=== PATIENT | female | born 1935 | race Caucasian/White ===

== ENCOUNTER 2017-08-08 11:06 | Emergency (ER) | payer MEDICARE, BC ==
[2017-08-08] MEDS ORDERED: Ketorolac 30 MG/ML SDV IM ONE (12:25)
--- NOTE | 2017-08-08 12:26 | EDM.PDOC ---
ED HPI GENERAL MEDICAL PROBLEM - General Chief Complaint: Upper Extremity Injury/Pain Stated Complaint: LEFT SHOULDER PAIN Time Seen by Provider: 08/08/17 12:26 Source of Information: Reports: Patient History Limitations: Reports: No Limitations - History of Present Illness INITIAL COMMENTS - FREE TEXT/NARRATIVE: Pt fell 2 weeks ago and she used her left arm to push her up. She started about 1 week ago with pain in the left shoulder and it is now extending over the ches.t She is having alot of discomfort when she moves the arm. She seemes to be the most tender in tharea in the front of the shoulder. Onset: Gradual, Other ( This has been going on in the pst week. Today she began to notice pain going over the chest. ) Duration: Day(s): Location: Reports: Chest, Upper Extremity, Left Associated Symptoms: Reports: Chest Pain, Other (Pt had pain extending from the shoulder over the left chest and this was tender to palpate. ) Left Upper Shoulder Pain Score (Numeric/FACES): 4 - Related Data Allergies Allergy/AdvReac Type Severity Reaction Status Date / Time azithromycin Allergy Vomiting Verified 08/08/17 11:41 codeine Allergy Nausea and Verified 08/08/17 11:41 Vomiting diazepam [From Valium] Allergy Disorientat Verified 08/08/17 11:41 ion Penicillins Allergy Respiratory Verified 08/08/17 11:41 Distress Sulfa (Sulfonamide Allergy Rash Verified 08/08/17 11:41 Antibiotics) Home Meds: Home Meds Atenolol [Tenormin] 25 mg PO DAILY 10/06/13 [History] Omeprazole 20 mg PO DAILY 10/06/13 [History] glyBURIDE [Micronase] 2.5 mg PO DAILY 10/06/13 [History] metFORMIN [Glucophage] 1,000 mg PO BIDM 10/06/13 [History] Allopurinol [Zyloprim] 100 mg PO DAILY 10/15/15 [History] Gabapentin [Neurontin] 300 mg PO DAILY 10/15/15 [History] amLODIPine [Norvasc] 10 mg PO DAILY 10/15/15 [History] Cholecalciferol (Vitamin D3) [Vitamin D] 1 tab PO DAILY 08/08/17 [History] Lisinopril 1 tab PO DAILY 08/08/17 [History] Multivitamin [Daily Multiple Vitamin] 1 tab PO DAILY 08/08/17 [History] atorvaSTATin [Lipitor] 1 tab PO DAILY 08/08/17 [History] glipiZIDE [Glipizide ER] 2 tab PO DAILY 08/08/17 [History] Past Medical History HEENT History: Reports: Cataract, Glaucoma, Impaired Vision Cardiovascular History: Reports: High Cholesterol, Hypertension Respiratory History: Reports: Asthma, COPD Gastrointestinal History: Reports: GERD Musculoskeletal History: Reports: Osteoarthritis, Other (See Below) Other Musculoskeletal History: right hip pain Neurological History: Reports: CVA, Migraines Endocrine/Metabolic History: Reports: Diabetes, Type II - Past Surgical History HEENT Surgical History: Reports: Cataract Surgery Respiratory Surgical History: Reports: None GI Surgical History: Reports: Appendectomy Female Surgical History: Reports: Endometrial Ablation, Hysterectomy Social & Family History - Tobacco Use Smoking Status *Q: Never Smoker - Caffeine Use Caffeine Use: Reports: Coffee, Soda, Tea - Recreational Drug Use Recreational Drug Use: No Review of Systems - Review of Systems Review Of Systems: See Below Eyes: Reports: No Symptoms Ears: Reports: No Symptoms Nose: Reports: No Symptoms Mouth/Throat: Reports: No Symptoms Respiratory: Reports: No Symptoms Cardiovascular: Reports: Chest Pain, Other ( muscle type pain extending from the left shoulder. ) Genitourinary: Reports: No Symptoms Musculoskeletal: Reports: Other (Pain in the left shoulder. ) ED EXAM, GENERAL - Physical Exam Exam: See Below Free Text/Narrative:: Pt has pain in the left shoulder and this seemes to be extending over the left chest. Exam Limited By: No Limitations General Appearance: Alert, Anxious, Moderate Distress Ears: Normal TMs Nose: Normal Inspection Throat/Mouth: Normal Inspection Head: Atraumatic Neck: Normal Inspection Respiratory/Chest: No Respiratory Distress, Other (pt is tender to papate the muscle extending from the shoulder to the chest. ) Cardiovascular: Regular Rate, Rhythm GI/Abdominal: Soft, Non-Tender (Female) Exam: Deferred Rectal (Female) Exam: Deferred Back Exam: Normal Inspection Extremities: Other (pt is tender over the left ant shoulder and the left chest. Her Mri that was done in May of the cervical spine shows sig disc disease. ) Psychiatric: Normal Affect Course - Vital Signs Last Recorded V/S: Last Vital Signs Temp 36.9 C 08/08/17 11:26 Pulse 76 08/08/17 13:11 Resp 16 08/08/17 13:11 BP 160/76 H 08/08/17 13:11 Pulse Ox 93 L 08/08/17 13:11 - Orders/Labs/Meds Orders: Active Orders 24 hr Category Date Time Status EKG Documentation Completion [RC] ASDIRECTED Care 08/08/17 12:39 Active EKG 12 Lead [EK] Routine Ther 08/08/17 12:39 Ordered Labs: Laboratory Tests 08/08/17 08/08/17 08/08/17 Range/Units 12:30 12:30 12:40 WBC 9.3 (4.5-11.0) K/uL RBC 4.26 (3.30-5.50) M/uL Hgb 12.9 (12.0-15.0) g/dL Hct 39.8 (36.0-48.0) % MCV 93 (80-98) fL MCH 30 (27-31) pg MCHC 32 (32-36) % Plt Count 205 (150-400) K/uL Neut % (Auto) 71 H (36-66) % Lymph % (Auto) 19 L (24-44) % [place] % (Auto) 9 H (2-6) % Eos % (Auto) 1 L (2-4) % Baso % (Auto) 0 (0-1) % Sodium 143 (140-148) mmol/L Potassium 4.4 (3.6-5.2) mmol/L Chloride 105 (100-108) mmol/L Carbon Dioxide 28 (21-32) mmol/L Anion Gap 10.2 (5.0-14.0) mmol/L BUN 16 (7-18) mg/dL Creatinine 0.9 (0.6-1.0) mg/dL Est Cr Clr Drug Dosing 35.21 mL/min Estimated GFR (MDRD) > 60 (>60) Glucose 139 H (74-106) mg/dL Calcium 8.5 (8.5-10.1) mg/dL Troponin I < 0.017 (0.000-0.056) ng/mL Meds: Medications Discontinued Medications Generic Name Dose Route Start Last Admin Trade Name Freq PRN Reason Stop Dose Admin Ketorolac Tromethamine 30 mg 08/08/17 12:25 08/08/17 13:05 Toradol IM 08/08/17 12:26 30 mg ONETIME ONE Administration - Re-Assessments/Exams Free Text/Narrative Re-Assessment/Exam: 08/08/17 13:27 pt did have normal lab work. She had a normal trop and her ekg did not show acute findings. She was not given asa because it was felt this was definitely muscle type pain. xrays of the shoulder revealed no acute findings. Departure - Departure Time of Disposition: 13:30 Disposition: Home, Self-Care 01 Condition: Fair Clinical Impression: Sprain of shoulder and upper arm - Discharge Information Referrals: María Fried PA [Primary Care Provider] - Forms: ED Department Discharge Care Plan Goals: moist warm packs to the left shoulder, try to move the arm as much as possible, tylenol 650 q6h as needed for pain, norco 5/325 q6h prn for pain # 6. Physical therapy at [facility] - My Orders Last 24 Hours: My Active Orders 08/08/17 12:39 EKG Documentation Completion [RC] ASDIRECTED EKG 12 Lead [EK] Routine - Assessment/Plan Last 24 Hours: My Active Orders 08/08/17 12:39 EKG Documentation Completion [RC] ASDIRECTED EKG 12 Lead [EK] Routine
[2017-08-08 13:12] VITALS: BP 160/76
--- NOTE | 2017-08-08 13:15 | CR ---
Humerus Lt INDICATION: Pain in the left arm. COMPARISON: None FINDINGS: 2 views. No fracture, dislocation, or other acute bony abnormality.
--- NOTE | 2017-08-08 13:21 | CR ---
Shoulder Comp Lt INDICATION: pain n left shoulder. COMPARISON: None FINDINGS: 3 views. No fracture, dislocation, or other acute bony abnormality. Mild AC joint space narrowing.
== END 2017-08-08 14:03 | disposition home or self-care (01) ==
LOC: JP.ED 11:06
DX: S43.402A Unspecified sprain of left shoulder joint, initial encounter (principal); E78.00 Pure hypercholesterolemia, unspecified; I10 Essential (primary) hypertension; E11.9 Type 2 diabetes mellitus without complications; Z88.1 Allergy status to other antibiotic agents; Z88.5 Allergy status to narcotic agent; Z88.0 Allergy status to penicillin; Z88.2 Allergy status to sulfonamides; Z79.899 Other long term (current) drug therapy; Z79.84 Long term (current) use of oral hypoglycemic drugs; W19.XXXA Unspecified fall, initial encounter
CPT/HCPCS: 36415; 73030; 73060; 80048; 84484; 85025; 93005; 96372; 99284; J1885

== ENCOUNTER 2017-12-19 12:11 | Emergency (ER) | payer MEDICARE, BC ==
[2017-12-19] MEDS ORDERED: Diltiazem 25 MG/5 ML SDV IVPUSH ONE (12:42)
[2017-12-19] MEDS ORDERED: Diltiazem 100 MG in Sodium Chloride 0.9% 100 ML IV SCH ×2 (12:45→13:00)
--- NOTE | 2017-12-19 12:47 | EDM.PDOC ---
ED HPI GENERAL MEDICAL PROBLEM - General Chief Complaint: Cardiovascular Problem Stated Complaint: A-FIB FROM THE CLINIC Time Seen by Provider: 12/19/17 12:44 Source of Information: Reports: Patient History Limitations: Reports: No Limitations - History of Present Illness INITIAL COMMENTS - FREE TEXT/NARRATIVE: pt arrived with a history of being at the clinic and was having a nephrology visit. Her heart rate was found to be in the 140 range. Onset: Other ( The onset of this is unknown. 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 ) Duration: Hour(s): Location: Reports: Chest Associated Symptoms: Reports: Other ( chest pain and weakness, and vomiting saturday. ) - Related Data Allergies Allergy/AdvReac Type Severity Reaction Status Date / Time Penicillins Allergy Intermediate Respiratory Verified 12/19/17 12:50 Distress diazepam [From Valium] Allergy Disorientat Verified 08/08/17 11:41 ion Sulfa (Sulfonamide Allergy Rash Verified 08/08/17 11:41 Antibiotics) azithromycin AdvReac Vomiting Verified 12/19/17 12:50 codeine AdvReac Nausea and Verified 12/19/17 12:50 Vomiting Home Meds: Home Meds Atenolol [Tenormin] 25 mg PO DAILY 10/06/13 [History] Omeprazole 20 mg PO DAILY 10/06/13 [History] glyBURIDE [Micronase] 2.5 mg PO DAILY 10/06/13 [History] metFORMIN [Glucophage] 1,000 mg PO BIDM 10/06/13 [History] Allopurinol [Zyloprim] 100 mg PO DAILY 10/15/15 [History] Gabapentin [Neurontin] 300 mg PO DAILY 10/15/15 [History] amLODIPine [Norvasc] 10 mg PO DAILY 10/15/15 [History] Cholecalciferol (Vitamin D3) [Vitamin D] 1 tab PO DAILY 08/08/17 [History] Lisinopril 1 tab PO DAILY 08/08/17 [History] Multivitamin [Daily Multiple Vitamin] 1 tab PO DAILY 08/08/17 [History] atorvaSTATin [Lipitor] 1 tab PO DAILY 08/08/17 [History] glipiZIDE [Glipizide ER] 2 tab PO DAILY 08/08/17 [History] Past Medical History HEENT History: Reports: Cataract, Glaucoma, Impaired Vision Cardiovascular History: Reports: High Cholesterol, Hypertension Respiratory History: Reports: Asthma, COPD Gastrointestinal History: Reports: GERD [employer] History: Reports: Musculoskeletal History: Reports: Osteoarthritis, Other (See Below) Other Musculoskeletal History: right hip pain Neurological History: Reports: CVA, Migraines Endocrine/Metabolic History: Reports: Diabetes, Type II - Infectious Disease History Infectious Disease History: Reports: Chicken Pox, Measles, Mumps - Past Surgical History HEENT Surgical History: Reports: Cataract Surgery Respiratory Surgical History: Reports: None GI Surgical History: Reports: Appendectomy Female Surgical History: Reports: Endometrial Ablation, Hysterectomy Social & Family History - Tobacco Use Smoking Status *Q: Never Smoker - Caffeine Use Caffeine Use: Reports: Coffee - Recreational Drug Use Recreational Drug Use: No ED ROS GENERAL - Review of Systems Review Of Systems: See Below Constitutional: Reports: Weakness, Fatigue HEENT: Reports: No Symptoms Respiratory: Reports: No Symptoms Cardiovascular: Reports: Palpitations Endocrine: Reports: No Symptoms GI/Abdominal: Reports: No Symptoms : Reports: No Symptoms Musculoskeletal: Reports: No Symptoms Skin: Reports: No Symptoms Neurological: Reports: No Symptoms ED EXAM, GENERAL - Physical Exam Exam: See Below Free Text/Narrative:: pt arrived with a heart rate in the 140 range. She had a history of sustained chest pain on Saturday. She has not had chest since that time. She has a elevated tropon. Exam Limited By: No Limitations General Appearance: Alert, No Apparent Distress, Anxious, Other (pupils equal and reactive. ) Ears: Normal TMs Nose: Normal Inspection Throat/Mouth: Normal Inspection Head: Atraumatic Neck: Normal Inspection Respiratory/Chest: No Respiratory Distress Cardiovascular: Irregularly Irregular, Other ( rate is 140. ) GI/Abdominal: Soft, Non-Tender (Female) Exam: Deferred Rectal (Female) Exam: Deferred Back Exam: Normal Inspection Extremities: Normal Inspection Neurological: Alert, Oriented, Normal Cognition Psychiatric: Normal Affect Course - Vital Signs Last Recorded V/S: Last Vital Signs Temp 35.9 C 12/19/17 12:36 Pulse 98 12/19/17 14:56 Resp 19 12/19/17 14:27 BP 175/110 H 12/19/17 15:00 Pulse Ox 93 L 12/19/17 14:27 - Orders/Labs/Meds Labs: Laboratory Tests 1012/19/17 12/19/17 Range/Units 12:41 12:47 14:04 WBC 8.6 (4.5-11.0) K/uL RBC 4.78 (3.30-5.50) M/uL Hgb 14.7 (12.0-15.0) g/dL Hct 43.7 (36.0-48.0) % MCV 91 (80-98) fL MCH 31 (27-31) pg MCHC 34 (32-36) % Plt Count 180 (150-400) K/uL Neut % (Auto) 71 H (36-66) % Lymph % (Auto) 17 L (24-44) % [place] % (Auto) 10 H (2-6) % Eos % (Auto) 1 L (2-4) % Baso % (Auto) 0 (0-1) % APTT 27.1 (27.0-36.0) sec Sodium 141 (140-148) mmol/L Potassium 3.4 L (3.6-5.2) mmol/L Chloride 100 (100-108) mmol/L Carbon Dioxide 30 (21-32) mmol/L Anion Gap 14.4 H (5.0-14.0) mmol/L BUN 22 H (7-18) mg/dL Creatinine 1.3 H (0.6-1.0) mg/dL Est Cr Clr Drug Dosing 23.96 mL/min Estimated GFR (MDRD) 39 L (>60) Glucose 188 H (74-106) mg/dL Calcium 8.6 (8.5-10.1) mg/dL Total Bilirubin 0.6 (0.2-1.0) mg/dL AST 29 (15-37) U/L ALT 23 (12-78) U/L Alkaline Phosphatase 93 (46-116) U/L Troponin I 2.483 H* (0.000-0.056) ng/mL Total Protein 7.2 (6.4-8.2) g/dL Albumin 3.6 (3.4-5.0) g/dL Globulin 3.6 H (2.3-3.5) g/dL Albumin/Globulin Ratio 1.0 L (1.2-2.2) Urine Color Urine Appearance Urine pH (4.5-8.0) Ur Specific Grass Range (1.008-1.030) Urine Protein (NEGATIVE) mg/dL Urine Glucose (UA) (NEGATIVE) mg/dL Urine Ketones (NEGATIVE) mg/dL Urine Occult Blood (NEGATIVE) Urine Nitrite (NEGATIVE) Urine Bilirubin (NEGATIVE) Urine Urobilinogen (NORMAL) mg/dL Ur Leukocyte Esterase (NEGATIVE) Urine RBC (0-5) Urine WBC (0-5) Ur Epithelial Cells Amorphous Sediment Urine Bacteria Urine Mucus 12/19/17 Range/Units 14:40 WBC (4.5-11.0) K/uL RBC (3.30-5.50) M/uL Hgb (12.0-15.0) g/dL Hct (36.0-48.0) % MCV (80-98) fL MCH (27-31) pg MCHC (32-36) % Plt Count (150-400) K/uL Neut % (Auto) (36-66) % Lymph % (Auto) (24-44) % [place] % (Auto) (2-6) % Eos % (Auto) (2-4) % Baso % (Auto) (0-1) % APTT (27.0-36.0) sec Sodium (140-148) mmol/L Potassium (3.6-5.2) mmol/L Chloride (100-108) mmol/L Carbon Dioxide (21-32) mmol/L Anion Gap (5.0-14.0) mmol/L BUN (7-18) mg/dL Creatinine (0.6-1.0) mg/dL Est Cr Clr Drug Dosing mL/min Estimated GFR (MDRD) (>60) Glucose (74-106) mg/dL Calcium (8.5-10.1) mg/dL Total Bilirubin (0.2-1.0) mg/dL AST (15-37) U/L ALT (12-78) U/L Alkaline Phosphatase (46-116) U/L Troponin I (0.000-0.056) ng/mL Total Protein (6.4-8.2) g/dL Albumin (3.4-5.0) g/dL Globulin (2.3-3.5) g/dL Albumin/Globulin Ratio (1.2-2.2) Urine Color Yellow Urine Appearance Slightly cloudy Urine pH 6.0 (4.5-8.0) Ur Specific Grass Range 1.010 (1.008-1.030) Urine Protein 100 H (NEGATIVE) mg/dL Urine Glucose (UA) Normal (NEGATIVE) mg/dL Urine Ketones Negative (NEGATIVE) mg/dL Urine Occult Blood Negative (NEGATIVE) Urine Nitrite Negative (NEGATIVE) Urine Bilirubin Negative (NEGATIVE) Urine Urobilinogen Normal (NORMAL) mg/dL Ur Leukocyte Esterase Negative (NEGATIVE) Urine RBC Not seen (0-5) Urine WBC 0-5 (0-5) Ur Epithelial Cells Moderate Amorphous Sediment Not seen Urine Bacteria Moderate Urine Mucus Rare Meds: Medications Discontinued Medications Generic Name Dose Route Start Last Admin Trade Name Freq PRN Reason Stop Dose Admin Diltiazem HCl 10 mg 12/19/17 12:42 12/19/17 12:45 Diltiazem IVPUSH 12/19/17 12:43 10 mg ONETIME ONE Administration Heparin Sodium (Porcine) 4,000 units 12/19/17 14:04 12/19/17 14:17 Heparin Sodium IVPUSH 12/19/17 14:05 4,000 units ONETIME ONE Administration Diltiazem HCl 100 mg/ Sodium 100 mls @ 5 mls/hr 12/19/17 13:00 12/19/17 13:48 Chloride IV 5 mg/hr TITRATE ARJUN 5 mls/hr Administration Protocol 5 MG/HR Sodium Chloride 1,000 mls @ 100 mls/hr 12/19/17 14:15 12/19/17 14:26 Normal Saline IV 100 mls/hr ASDIRECTED ARJUN Administration Metoprolol Tartrate 2.5 mg 12/19/17 14:05 12/19/17 14:17 Lopressor IVPUSH 12/19/17 14:06 2.5 mg ONETIME ONE Administration Metoprolol Tartrate 2.5 mg 12/19/17 14:48 12/19/17 14:56 Lopressor IVPUSH 12/19/17 14:49 2.5 mg ONETIME ONE Administration - Re-Assessments/Exams Free Text/Narrative Re-Assessment/Exam: 12/19/17 14:11 pt was given cardiazem 10mg iv bolus and her rate went down to 80. It then went back up and a drip was started. A heparin bolus was given. Lopressor 2.5 mg was given iv push x2. 12/20/17 18:39 Departure - Departure Time of Disposition: 14:14 Disposition: DC/Tfer to Acute Hospital 02 Reason for Transfer *Q: Primary PCI Indicated Condition: Fair Clinical Impression: Acute [place], Atrial fibrillation Referrals: María Fried PA [Primary Care Provider] - Forms: ED Department Discharge Care Plan Goals: transfer to [facility].
[2017-12-19] MEDS ORDERED: Heparin Sodium 5,000 Units/ML Vial IVPUSH ONE (14:04)
[2017-12-19] MEDS ORDERED: Metoprolol Tartrate 5 MG/5 ML SDV IVPUSH ONE ×2 (14:05→14:48)
[2017-12-19] MEDS ORDERED: Sodium Chloride 0.9% 1,000 ML IV SCH (14:15)
--- NOTE | 2017-12-19 14:46 | CR ---
CHEST: Portable CLINICAL HISTORY:Atrial fib COMPARISON:None available FINDINGS: The heart is enlarged pulmonary vascular is normal. Lungs are mildly hyperaerated. No infi ltrate effusion or pneumothorax is seen. Impression: Mild cardiomegaly No acute cardiopulmonary process
[2017-12-19 15:20] VITALS: BP 175/110
== END 2017-12-19 15:05 ==
LOC: JP.ED 12:11
DX: I21.9 Acute myocardial infarction, unspecified (principal); I48.91 Unspecified atrial fibrillation; E78.00 Pure hypercholesterolemia, unspecified; I10 Essential (primary) hypertension; J44.9 Chronic obstructive pulmonary disease, unspecified; E11.9 Type 2 diabetes mellitus without complications; Z79.899 Other long term (current) drug therapy; Z79.84 Long term (current) use of oral hypoglycemic drugs
CPT/HCPCS: 36415; 71045; 80053; 81001; 84484; 85025; 85730; 93005; 96365; 96375; 99285; J1644; J3490; J7030

== ENCOUNTER 2018-09-04 20:41 | Emergency (ER) | payer BC, MEDICARE ==
--- NOTE | 2018-09-04 21:19 | EDM.PDOC ---
ED HPI GENERAL MEDICAL PROBLEM - General Chief Complaint: Gastrointestinal Problem Stated Complaint: MEDICAL VIA AMBULANCE Time Seen by Provider: 09/04/18 20:59 Source of Information: Reports: Patient, RN Notes Reviewed History Limitations: Reports: No Limitations - History of Present Illness INITIAL COMMENTS - FREE TEXT/NARRATIVE: 82-year-old female presents emergency department today with flank nausea and vomiting 1 she states this episode happened after she eaten at the restaurant approximately 20 minutes after ingestion of the same which a lot patient had a violent episode of nausea and vomiting, called EMS services who arrived found her to be clammy IV was placed 4 mg Zofran given EKG demonstrates atrial fibrillation otherwise no signs of ischemia she does have a known history of atrial fibrillation on anticoagulation therapy - Related Data Allergies Allergy/AdvReac Type Severity Reaction Status Date / Time Penicillins Allergy Intermediate Respiratory Verified 09/04/18 20:43 Distress diazepam [From Valium] Allergy Disorientat Verified 09/04/18 20:43 ion Sulfa (Sulfonamide Allergy Rash Verified 09/04/18 20:43 Antibiotics) azithromycin AdvReac Vomiting Verified 09/04/18 20:43 codeine AdvReac Nausea and Verified 09/04/18 20:43 Vomiting Home Meds: Home Meds Atenolol [Tenormin] 25 mg PO DAILY 10/06/13 [History] Omeprazole 20 mg PO DAILY 10/06/13 [History] glyBURIDE [Micronase] 2.5 mg PO DAILY 10/06/13 [History] metFORMIN [Glucophage] 1,000 mg PO BIDM 10/06/13 [History] Allopurinol [Zyloprim] 100 mg PO DAILY 10/15/15 [History] Gabapentin [Neurontin] 300 mg PO BID 10/15/15 [History] amLODIPine [Norvasc] 10 mg PO DAILY 10/15/15 [History] Lisinopril 1 tab PO DAILY 08/08/17 [History] atorvaSTATin [Lipitor] 1 tab PO DAILY 08/08/17 [History] glipiZIDE [Glipizide ER] 2 tab PO DAILY 08/08/17 [History] Apixaban [Eliquis] 5 mg PO BID 09/04/18 [History] Past Medical History HEENT History: Reports: Cataract, Glaucoma, Impaired Vision Cardiovascular History: Reports: Afib, High Cholesterol, Hypertension Respiratory History: Reports: Asthma, COPD Gastrointestinal History: Reports: GERD [employer] History: Reports: Musculoskeletal History: Reports: Osteoarthritis, Other (See Below) Other Musculoskeletal History: right hip pain Neurological History: Reports: CVA, Migraines Endocrine/Metabolic History: Reports: Diabetes, Type II - Infectious Disease History Infectious Disease History: Reports: Chicken Pox, Measles, Mumps - Past Surgical History Head Surgeries/Procedures: Reports: None HEENT Surgical History: Reports: Cataract Surgery Cardiovascular Surgical History: Reports: None Respiratory Surgical History: Reports: None GI Surgical History: Reports: Appendectomy Female Surgical History: Reports: Endometrial Ablation, Hysterectomy Endocrine Surgical History: Reports: None Neurological Surgical History: Reports: None Musculoskeletal Surgical History: Reports: None Dermatological Surgical History: Reports: None Social & Family History - Tobacco Use Smoking Status *Q: Never Smoker Second Hand Smoke Exposure: No - Caffeine Use Caffeine Use: Reports: None - Recreational Drug Use Recreational Drug Use: No ED ROS GENERAL - Review of Systems Review Of Systems: See Below Constitutional: Reports: No Symptoms HEENT: Reports: No Symptoms Respiratory: Reports: No Symptoms Cardiovascular: Reports: No Symptoms GI/Abdominal: Reports: Nausea, Vomiting : Reports: No Symptoms Musculoskeletal: Reports: No Symptoms ED EXAM, GI/ABD - Physical Exam Exam: See Below Exam Limited By: No Limitations General Appearance: Alert, WD/WN, No Apparent Distress Ears: Normal External Exam, Normal Canal, Hearing Grossly Normal, Normal TMs Nose: Normal Inspection, Normal Mucosa, No Blood Throat/Mouth: Normal Inspection, Normal Lips, Normal Teeth, Normal Gums, Normal Oropharynx, Normal Voice, No Airway Compromise Head: Atraumatic, Normocephalic Neck: Normal Inspection, Supple, Non-Tender, Full Range of Motion Respiratory/Chest: No Respiratory Distress, Lungs Clear, Normal Breath Sounds, No Accessory Muscle Use, Chest Non-Tender Cardiovascular: Regular Rate, Rhythm, No Murmur, Irregularly Irregular GI/Abdominal Exam: Soft, Non-Tender Course - Vital Signs Last Recorded V/S: Last Vital Signs Temp 96.1 F 09/04/18 20:52 Pulse 89 09/04/18 21:37 Resp 29 H 09/04/18 21:37 BP 144/90 H 09/04/18 21:37 Pulse Ox 96 09/04/18 21:37 - Orders/Labs/Meds Labs: Laboratory Tests 06/09/04/18 09/04/18 Range/Units 21:21 21:21 21:21 WBC 12.5 H (4.5-11.0) K/uL RBC 4.74 (3.30-5.50) M/uL Hgb 14.0 (12.0-15.0) g/dL Hct 43.9 (36.0-48.0) % MCV 93 (80-98) fL MCH 30 (27-31) pg MCHC 32 (32-36) % Plt Count 223 (150-400) K/uL Neut % (Auto) 86 H (36-66) % Lymph % (Auto) 8 L (24-44) % [place] % (Auto) 5 (2-6) % Eos % (Auto) 0 L (2-4) % Baso % (Auto) 0 (0-1) % Sodium 142 (140-148) mmol/L Potassium 4.8 (3.6-5.2) mmol/L Chloride 103 (100-108) mmol/L Carbon Dioxide 28 (21-32) mmol/L Anion Gap 10.8 (5.0-14.0) mmol/L BUN 23 H (7-18) mg/dL Creatinine 1.8 H (0.6-1.0) mg/dL Est Cr Clr Drug Dosing 17.31 mL/min Estimated GFR (MDRD) 27 L (>60) Glucose 144 H (74-106) mg/dL Calcium 9.8 (8.5-10.1) mg/dL Total Bilirubin 0.3 (0.2-1.0) mg/dL AST 15 (15-37) U/L ALT 28 (12-78) U/L Alkaline Phosphatase 107 (46-116) U/L CK-MB (CK-2) 2.1 (0-3.6) mg/mL Troponin I < 0.017 (0.000-0.056) ng/mL Total Protein 7.6 (6.4-8.2) g/dL Albumin 3.9 (3.4-5.0) g/dL Globulin 3.7 H (2.3-3.5) g/dL Albumin/Globulin Ratio 1.1 L (1.2-2.2) Departure - Departure Time of Disposition: 22:25 Disposition: Home, Self-Care 01 Condition: Fair Clinical Impression: Foodborne gastroenteritis - Discharge Information Instructions: Food Poisoning Referrals: PCP,None [Primary Care Provider] - Forms: ED Department Discharge Additional Instructions: Please followup with your primary care provider in 3-5 days if not better, please call return to the emergency department with worsening of symptoms. - Assessment/Plan Plan: Assessment Acuity = acute Site and laterality = nausea and vomiting Etiology = suspicious for food borne illness Manifestations = symptoms now resolved Location of injury = Home Lab values = WBC elevated 12.5 consistent leukocytosis probably acute phase reaction, creatinine elevated 1.8 consistent chronic renal failure stage GIII A , troponin was negative CK-MB both negative Plan Her nausea and vomiting have resolved after 1 dose of Zofran plan discharge home follow-up primary care 3 days if no improvement This note was dictated using [employer] voice recognition software please call with any questions on syntax or grammar.
[2018-09-04 21:51] VITALS: BP 144/90
== END 2018-09-04 23:58 | disposition home or self-care (01) ==
LOC: JP.ED 20:41
DX: A05.9 Bacterial foodborne intoxication, unspecified (principal); E11.9 Type 2 diabetes mellitus without complications; I10 Essential (primary) hypertension; E78.00 Pure hypercholesterolemia, unspecified; I48.91 Unspecified atrial fibrillation; K21.9 Gastro-esophageal reflux disease without esophagitis; Z79.899 Other long term (current) drug therapy; Z88.0 Allergy status to penicillin; Z88.2 Allergy status to sulfonamides; Z88.1 Allergy status to other antibiotic agents; Z88.8 Allergy status to other drugs, medicaments and biological substances
CPT/HCPCS: 36415; 80053; 82553; 84484; 85025; 99284

== ENCOUNTER 2019-10-09 12:11 | Inpatient (IN) | payer MEDICARE ==
[2019-10-09] MEDS ORDERED: Furosemide 40 MG/4 ML VIAL IVPUSH ONE (12:19)
[2019-10-09] MEDS ORDERED: Sodium Chloride 0.9% 10 ML Syringe FLUSH PRN ×2 (12:19→16:12)
--- NOTE | 2019-10-09 12:44 | EDM.PDOC ---
ED HPI GENERAL MEDICAL PROBLEM - General Chief Complaint: General Stated Complaint: MEDICAL [facility] Time Seen by Provider: 10/09/19 12:41 Source of Information: Reports: Patient History Limitations: Reports: No Limitations - History of Present Illness INITIAL COMMENTS - FREE TEXT/NARRATIVE: pt arrived with sob and chest pressure. She has noted increased ankle swelling and increased sob for the past 2 days. Onset: Gradual Duration: Day(s):, Other (pt was much more sob this am. ) Location: Reports: Chest, Lower Extremity, Left, Lower Extremity, Right Associated Symptoms: Reports: Shortness of Breath, Other (pt did have chest pressure) - Related Data Allergies Allergy/AdvReac Type Severity Reaction Status Date / Time Penicillins Allergy Intermediate Respiratory Verified 10/09/19 12:19 Distress Sulfa (Sulfonamide Allergy Rash Verified 10/09/19 12:19 Antibiotics) azithromycin AdvReac Vomiting Verified 10/09/19 12:19 codeine AdvReac Nausea and Verified 10/09/19 12:19 Vomiting diazepam [From Valium] AdvReac Disorientat Verified 10/09/19 15:42 ion Home Meds: Home Meds Omeprazole 20 mg PO DAILY 10/06/13 [History] glyBURIDE [Micronase] 2.5 mg PO DAILY 10/06/13 [History] metFORMIN [Glucophage] 1,000 mg PO BIDM 10/06/13 [History] Allopurinol [Zyloprim] 100 mg PO DAILY 10/15/15 [History] Gabapentin [Neurontin] 300 mg PO TID 10/15/15 [History] amLODIPine [Norvasc] 10 mg PO DAILY 10/15/15 [History] Lisinopril 40 mg PO DAILY 08/08/17 [History] atorvaSTATin [Lipitor] 40 mg PO DAILY 08/08/17 [History] Apixaban [Eliquis] 5 mg PO BID 09/04/18 [History] Aspirin [[place] Aspirin EC] 81 mg PO DAILY 10/09/19 [History] Gabapentin [Neurontin] 300 mg PO TID 10/09/19 [History] Isosorbide Mononitrate [Isosorbide Mononitrate ER] 30 mg PO DAILY 10/09/19 [History] Metoprolol Succinate 200 mg PO DAILY 10/09/19 [History] glipiZIDE [Glucotrol] 10 mg PO DAILY 10/09/19 [History] Past Medical History HEENT History: Reports: Cataract, Glaucoma, Impaired Vision Cardiovascular History: Reports: Afib, High Cholesterol, Hypertension Respiratory History: Reports: Asthma, COPD Gastrointestinal History: Reports: GERD [employer] History: Reports: Musculoskeletal History: Reports: Osteoarthritis, Other (See Below) Other Musculoskeletal History: right hip pain Neurological History: Reports: CVA, Migraines Endocrine/Metabolic History: Reports: Diabetes, Type II - Infectious Disease History Infectious Disease History: Reports: Chicken Pox, Measles, Mumps - Past Surgical History HEENT Surgical History: Reports: Cataract Surgery GI Surgical History: Reports: Appendectomy Female Surgical History: Reports: Endometrial Ablation, Hysterectomy Social & Family History - Tobacco Use Smoking Status *Q: Never Smoker - Caffeine Use Caffeine Use: Reports: Coffee, Tea - Alcohol Use Date of Last Drink: 10/02/19 Time of Last Drink: 18:00 - Recreational Drug Use Recreational Drug Use: No ED ROS GENERAL - Review of Systems Review Of Systems: See Below Constitutional: Reports: Weakness, Other (pt is much more sob. ) HEENT: Reports: No Symptoms Respiratory: Reports: Shortness of Breath, Cough Cardiovascular: Reports: Dyspnea on Exertion, Other (pt has noted increased ankle swelling. She was much more sob this am. ) : Reports: No Symptoms Musculoskeletal: Reports: No Symptoms Skin: Reports: No Symptoms Neurological: Reports: No Symptoms Psychiatric: Reports: Anxiety ED EXAM, GENERAL - Physical Exam Exam: See Below Free Text/Narrative:: pt arrived with increased sob, She has noted increased ankle swelling. She did develop some pressure in the chest. Exam Limited By: No Limitations General Appearance: Alert, Anxious, Moderate Distress Ears: Normal TMs Nose: Normal Inspection Throat/Mouth: Normal Inspection Head: Atraumatic Neck: Normal Inspection, Other (neck veins prominent) Respiratory/Chest: Decreased Breath Sounds, Crackles GI/Abdominal: Soft, Non-Tender (Female) Exam: Deferred Rectal (Female) Exam: Deferred Back Exam: Normal Inspection Extremities: Pedal Edema, Other ( pt has pluse 3 edema. ) Neurological: Alert, Oriented, Normal Cognition Psychiatric: Anxious Course - Vital Signs Last Recorded V/S: Last Vital Signs Temp 36.8 C 10/10/19 06:37 Pulse 91 10/10/19 06:37 Resp 16 10/10/19 06:37 BP 136/76 07/25/20 06:37 Pulse Ox 93 L 10/10/19 06:37 - Orders/Labs/Meds Orders: Active Orders 24 hr Category Date Time Status EKG 12 Lead [EK] Routine Ther 10/09/19 12:18 Stop Req Medication Orders Acetaminophen (Tylenol) 650 mg PO Q4H PRN PRN Reason: Pain (Mild 1-3)/fever Albuterol (Proventil Neb Soln) 2.5 mg NEB Q4H PRN PRN Reason: Shortness Of Breath/wheezing Albuterol/Ipratropium (Duoneb 3.0-0.5 Mg/3 Ml) 3 ml NEB QIDRT [facility] Last Admin: 10/10/19 06:43 Dose: 3 ml Documented by: Admin: 10/09/19 21:24 Dose: 3 ml Documented by: Admin: 10/09/19 18:46 Dose: 3 ml Documented by: NADYA Allopurinol (Zyloprim) 100 mg PO DAILY [facility] Last Admin: 10/09/19 18:40 Dose: 100 mg Documented by: NADYA Amlodipine Besylate (Norvasc) 10 mg PO DAILY [facility] Apixaban (Eliquis) 5 mg PO BID [facility] Last Admin: 10/09/19 21:24 Dose: 5 mg Documented by: MICHELLE Atorvastatin Calcium (Lipitor) 40 mg PO DAILY [facility] Last Admin: 10/09/19 18:40 Dose: 40 mg Documented by: NADYA Dextrose (Glutose 15) 15 gm PO ONETIME PRN PRN Reason: Hypoglycemia Dextrose/Water (Dextrose 50% In Water) 50 ml IV ONETIME PRN PRN Reason: Hypoglycemia Gabapentin (Neurontin) 300 mg PO TID [facility] Last Admin: 10/09/19 21:24 Dose: 300 mg Documented by: MICHELLE Glipizide (Glucotrol) 10 mg PO DAILY [facility] Insulin Human Lispro (Humalog) 0 unit SUBCUT QIDACANDBED [facility]; Protocol Last Admin: 10/09/19 21:22 Dose: 1 unit Documented by: MICHELLE Cosigned by: ERIS Admin: 10/09/19 18:26 Dose: Not Given Documented by: NADYA Lisinopril (Prinivil) 40 mg PO DAILY [facility] Metformin HCl (Glucophage) 1,000 mg PO BIDMEALS [facility] Last Admin: 10/09/19 18:39 Dose: 1,000 mg Documented by: NADYA Metoprolol Succinate (Toprol Xl) 200 mg PO DAILY [facility] Ondansetron HCl (Zofran) 4 mg IV Q4H PRN PRN Reason: Nausea/Vomiting Pantoprazole Sodium (Protonix) 40 mg PO ACBREAKFAST [facility] Last Admin: 10/09/19 18:40 Dose: 40 mg Documented by: NADYA Polyethylene Glycol (Miralax) 17 gm PO DAILY PRN PRN Reason: Constipation Sodium Chloride (Saline Flush) 10 ml FLUSH ASDIRECTED PRN PRN Reason: Keep Vein Open Labs: Laboratory Tests 10/09/19 10/09/19 10/09/19 Range/Units 12:26 12:26 12:27 WBC 6.2 (4.5-11.0) K/uL RBC 3.76 (3.30-5.50) M/uL Hgb 11.1 L (12.0-15.0) g/dL Hct 36.2 (36.0-48.0) % MCV 96 (80-98) fL MCH 30 (27-31) pg MCHC 31 L (32-36) % Plt Count 212 (150-400) K/uL Neut % (Auto) 72 H (36-66) % Lymph % (Auto) 19 L (24-44) % Brule % (Auto) 8 H (2-6) % Eos % (Auto) 1 L (2-4) % Baso % (Auto) 0 (0-1) % Sodium 143 (140-148) mmol/L Potassium 4.2 (3.6-5.2) mmol/L Chloride 105 (100-108) mmol/L Carbon Dioxide 29 (21-32) mmol/L Anion Gap 9.1 (5.0-14.0) mmol/L BUN 14 (7-18) mg/dL Creatinine 1.1 H (0.6-1.0) mg/dL Est Cr Clr Drug Dosing 27.83 mL/min Estimated GFR (MDRD) 47 L (>60) Glucose 158 H (74-106) mg/dL Calcium 9.0 (8.5-10.1) mg/dL Total Bilirubin 0.7 D (0.2-1.0) mg/dL AST 12 L (15-37) U/L ALT 17 (12-78) U/L Alkaline Phosphatase 99 (46-116) U/L Troponin I < 0.017 (0.000-0.056) ng/mL NT-Pro-B Natriuret Pep (5-450) pg/mL Total Protein 6.6 (6.4-8.2) g/dL Albumin 3.6 (3.4-5.0) g/dL Globulin 3.0 (2.3-3.5) g/dL Albumin/Globulin Ratio 1.2 (1.2-2.2) Urine Color (YELLOW) Urine Appearance (CLEAR) Urine pH (5.0-8.0) Ur Specific Flora (1.008-1.030) Urine Protein (NEGATIVE) mg/dL Urine Glucose (UA) (NEGATIVE) mg/dL Urine Ketones (NEGATIVE) mg/dL Urine Occult Blood (NEGATIVE) Urine Nitrite (NEGATIVE) Urine Bilirubin (NEGATIVE) Urine Urobilinogen (0.2-1.0) EU/dL Ur Leukocyte Esterase (NEGATIVE) Urine RBC (0-5) Urine WBC (0-5) Ur Epithelial Cells Amorphous Sediment Urine Bacteria Urine Mucus 10/09/19 10/09/19 Range/Units 12:27 13:39 WBC (4.5-11.0) K/uL RBC (3.30-5.50) M/uL Hgb (12.0-15.0) g/dL Hct (36.0-48.0) % MCV (80-98) fL MCH (27-31) pg MCHC (32-36) % Plt Count (150-400) K/uL Neut % (Auto) (36-66) % Lymph % (Auto) (24-44) % Brule % (Auto) (2-6) % Eos % (Auto) (2-4) % Baso % (Auto) (0-1) % Sodium (140-148) mmol/L Potassium (3.6-5.2) mmol/L Chloride (100-108) mmol/L Carbon Dioxide (21-32) mmol/L Anion Gap (5.0-14.0) mmol/L BUN (7-18) mg/dL Creatinine (0.6-1.0) mg/dL Est Cr Clr Drug Dosing mL/min Estimated GFR (MDRD) (>60) Glucose (74-106) mg/dL Calcium (8.5-10.1) mg/dL Total Bilirubin (0.2-1.0) mg/dL AST (15-37) U/L ALT (12-78) U/L Alkaline Phosphatase (46-116) U/L Troponin I (0.000-0.056) ng/mL NT-Pro-B Natriuret Pep 5580 H (5-450) pg/mL Total Protein (6.4-8.2) g/dL Albumin (3.4-5.0) g/dL Globulin (2.3-3.5) g/dL Albumin/Globulin Ratio (1.2-2.2) Urine Color Yellow (YELLOW) Urine Appearance Clear (CLEAR) Urine pH 6.0 (5.0-8.0) Ur Specific Flora 1.025 (1.008-1.030) Urine Protein 100 H (NEGATIVE) mg/dL Urine Glucose (UA) Negative (NEGATIVE) mg/dL Urine Ketones Negative (NEGATIVE) mg/dL Urine Occult Blood Negative (NEGATIVE) Urine Nitrite Negative (NEGATIVE) Urine Bilirubin Negative (NEGATIVE) Urine Urobilinogen 0.2 (0.2-1.0) EU/dL Ur Leukocyte Esterase Negative (NEGATIVE) Urine RBC 0-5 (0-5) Urine WBC 0-5 (0-5) Ur Epithelial Cells Moderate Amorphous Sediment Not seen Urine Bacteria Few Urine Mucus Not seen Meds: Medications Generic Name Dose Route Start Last Admin Trade Name Freq PRN Reason Stop Dose Admin Acetaminophen 650 mg 10/09/19 16:12 Tylenol PO Q4H PRN Pain (Mild 1-3)/fever Albuterol 2.5 mg 10/09/19 16:12 Proventil Neb Soln NEB Q4H PRN Shortness Of Breath/wheezing Albuterol/Ipratropium 3 ml 10/09/19 16:12 10/10/19 06:43 Duoneb 3.0-0.5 Mg/3 Ml NEB 3 ml QIDRT ARJUN Administration Allopurinol 100 mg 10/09/19 16:12 10/09/19 18:40 Zyloprim PO 100 mg DAILY ARJUN Administration Amlodipine Besylate 10 mg 10/10/19 09:00 Norvasc PO DAILY ARJUN Apixaban 5 mg 10/09/19 21:00 10/09/19 21:24 Eliquis PO 5 mg BID ARJUN Administration Atorvastatin Calcium 40 mg 10/09/19 16:30 10/09/19 18:40 Lipitor PO 40 mg DAILY ARJUN Administration Dextrose 15 gm 10/09/19 16:12 Glutose 15 PO ONETIME PRN Hypoglycemia Dextrose/Water 50 ml 10/09/19 16:12 Dextrose 50% In Water IV ONETIME PRN Hypoglycemia Gabapentin 300 mg 10/09/19 21:00 10/09/19 21:24 Neurontin PO 300 mg TID ARJUN Administration Glipizide 10 mg 10/10/19 09:00 Glucotrol PO DAILY [facility] Insulin Human Lispro 0 unit 10/09/19 17:00 10/09/19 21:22 Humalog SUBCUT 1 unit QIDACANDBED [facility] Administration Protocol Lisinopril 40 mg 10/10/19 09:00 Prinivil PO DAILY [facility] Metformin HCl 1,000 mg 10/09/19 17:00 10/09/19 18:39 Glucophage PO 1,000 mg BIDMEALS [facility] Administration Metoprolol Succinate 200 mg 10/10/19 09:00 Toprol Xl PO DAILY [facility] Ondansetron HCl 4 mg 10/09/19 16:12 Zofran IV Q4H PRN Nausea/Vomiting Pantoprazole Sodium 40 mg 10/09/19 16:30 10/09/19 18:40 Protonix PO 40 mg ACBREAKFAST [facility] Administration Polyethylene Glycol 17 gm 10/09/19 16:12 Miralax PO DAILY PRN Constipation Sodium Chloride 10 ml 10/09/19 16:12 Saline Flush FLUSH ASDIRECTED PRN Keep Vein Open Discontinued Medications Generic Name Dose Route Start Last Admin Trade Name Freq PRN Reason Stop Dose Admin Amlodipine Besylate 10 mg 10/09/19 13:58 10/09/19 15:07 Norvasc PO 10/09/19 13:59 10 mg ONETIME ONE Administration Apixaban 5 mg 10/09/19 13:56 10/09/19 15:08 Eliquis PO 10/09/19 13:57 5 mg ONETIME ONE Administration Atenolol 25 mg 10/09/19 13:57 10/09/19 15:04 Tenormin PO 10/09/19 13:58 25 mg ONETIME ONE Administration Atenolol 25 mg 10/10/19 09:00 Tenormin PO DAILY ARJUN Furosemide 60 mg 10/09/19 12:19 10/09/19 13:00 Lasix IVPUSH 10/09/19 12:20 60 mg ONETIME ONE Administration Gabapentin 300 mg 10/09/19 13:57 10/09/19 15:08 Neurontin PO 10/09/19 13:58 300 mg ONETIME ONE Administration Gabapentin 300 mg 10/09/19 21:00 Neurontin PO BID ARJUN Glyburide 2.5 mg 10/09/19 13:59 10/09/19 16:01 Micronase PO 10/09/19 14:00 2.5 mg WITHBREAKFAST ONE Administration Lisinopril 20 mg 10/09/19 16:12 10/09/19 18:42 Prinivil PO Not Given DAILY ARJUN Metoprolol Succinate 100 mg 10/09/19 18:34 10/09/19 18:46 Toprol Xl PO 10/09/19 18:35 100 mg ONETIME STA Administration Sodium Chloride 10 ml 10/09/19 12:19 Saline Flush FLUSH ASDIRECTED PRN Keep Vein Open - Re-Assessments/Exams Free Text/Narrative Re-Assessment/Exam: 10/10/19 07:13 pt had a high bmp. She was given lasix and put out about 700 in ER. Her chest xray had a small effusion and a wide mediastium. There is either a mass or aneuyism. She will be admitted and a cat scan of the chest will be obtained. Departure - Departure Time of Disposition: 06:40 Disposition: Admitted As Inpatient 66 Condition: Fair Clinical Impression: Fluid overload, Mediastinal widening, History of renal insufficiency - Discharge Information Sepsis Event Note (ED) - Evaluation Sepsis Screening Result: No Definite Risk - My Orders Last 24 Hours: My Active Orders 10/09/19 12:18 EKG 12 Lead [EK] Routine - Assessment/Plan Last 24 Hours: My Active Orders 10/09/19 12:18 EKG 12 Lead [EK] Routine
--- NOTE | 2019-10-09 13:54 | CR ---
CHEST: Portable 10/09/2019 at 12:53 PM CLINICAL HISTORY:SOB COMPARISON:2018 FINDINGS: Heart is enlarged. Pulmonary vascularity is normal. There are atherosclerotic changes in the aorta. There is prominence of the right hilum with ill-definition. Right hilar mass is not excluded. There appears to be a small right pleural effusion. There is some streaky density in both lung bases which is likely scarring or atelectasis. Impression: Right hilar enlargement. Underlying mass is not excluded. Short-term follow-up [address] is recommended Small right pleural effusion Chronic interstitial changes bilaterally
[2019-10-09] MEDS ORDERED: Apixaban 5 MG Tab PO ONE (13:56)
[2019-10-09] MEDS ORDERED: Gabapentin 300 MG Cap PO ONE (13:57)
[2019-10-09] MEDS ORDERED: Atenolol 25 MG Tab PO ONE (13:57)
[2019-10-09] MEDS ORDERED: amLODIPine 5 MG Tab PO ONE (13:58)
--- NOTE | 2019-10-09 15:10 | CT ---
Chest wo Cont CLINICAL HISTORY: Right hilar fullness TECHNIQUE: Transverse scans were obtained from the thoracic inlet to the lung bases without contrast. Auto dosage reduction in intervertebral reconstruction techniques were employed COMPARISONS: None FINDINGS: Patient has a moderate right pleural effusion and small left effusion. Both jhony are prominent, right greater than left. This is felt to be due to pulmonary vasculature. There is also and widening of the aortic arch with ectasia of the posterior arch. No definite mass or adenopathy is identified. Study is limited due to lack of IV contrast. The heart is mildly enlarged. IMPRESSION: Prominent jhony are due to to prominent hilar vessels. There may be some pulmonary venous hypertension. Unwinding and ectasia of the aortic arch Moderate right pleural effusion and small left. No mass or infiltrate is seen in the lungs
--- NOTE | 2019-10-09 15:31 | PCM.HP.2 ---
H&P History of Present Illness - General Date of Service: 10/09/19 Admit Problem/Dx: Admission Diagnosis/Problem Admission Diagnosis/Problem CHF, Congestive heart failure Source of Information: Patient, Provider, RN Notes Reviewed History Limitations: Reports: No Limitations - History of Present Illness Initial Comments - Free Text/Narative: Ms. Arce is an 83-year-old woman who was admitted through the emergency department with symptoms of shortness of breath and weakness secondary to congestive heart failure exacerbation. Over the last 3 days has experienced symptoms of PND at night with waking up very short of breath. First 2 nights shortness of breath resolve spontaneously but early this morning she awoke with shortness of breath and it persisted so she eventually presented to the emergency department. Chest x-ray and CT scan of the chest show evidence of s ome pulmonary edema and bilateral pleural effusions. There is to report a previous history of asthma, denies COPD or smoking history. She also has experienced increase in peripheral edema over the past few days. Symptoms of chest pain or pressure, EKG shows no acute ST segment changes, troponin is within normal range. CT scan of the chest shows no evidence of mass or infiltrate. - Related Data Allergies/Adverse Reactions: Allergies Allergy/AdvReac Type Severity Reaction Status Date / Time Penicillins Allergy Intermediate Respiratory Verified 10/09/19 12:19 Distress diazepam [From Valium] Allergy Disorientat Verified 10/09/19 12:19 ion Sulfa (Sulfonamide Allergy Rash Verified 10/09/19 12:19 Antibiotics) azithromycin AdvReac Vomiting Verified 10/09/19 12:19 codeine AdvReac Nausea and Verified 10/09/19 12:19 Vomiting Home Medications: Home Meds Atenolol [Tenormin] 25 mg PO DAILY 10/06/13 [History] Omeprazole 20 mg PO DAILY 10/06/13 [History] glyBURIDE [Micronase] 2.5 mg PO DAILY 10/06/13 [History] metFORMIN [Glucophage] 1,000 mg PO BIDM 10/06/13 [History] Allopurinol [Zyloprim] 100 mg PO DAILY 10/15/15 [History] Gabapentin [Neurontin] 300 mg PO BID 10/15/15 [History] amLODIPine [Norvasc] 10 mg PO DAILY 10/15/15 [History] Lisinopril 1 tab PO DAILY 08/08/17 [History] atorvaSTATin [Lipitor] 1 tab PO DAILY 08/08/17 [History] glipiZIDE [Glipizide ER] 2 tab PO DAILY 08/08/17 [History] Apixaban [Eliquis] 5 mg PO BID 09/04/18 [History] Past Medical History HEENT History: Reports: Cataract, Glaucoma, Impaired Vision Cardiovascular History: Reports: Afib, High Cholesterol, Hypertension Respiratory History: Reports: Asthma, COPD Gastrointestinal History: Reports: GERD Genitourinary History: Reports: Chronic Renal Insuffiency [employer]LET[employer] IN[employer]CTOR History: Reports: Musculoskeletal History: Reports: Osteoarthritis, Other (See Below) Other Musculoskeletal History: right hip pain Neurological History: Reports: CVA, Migraines Psychiatric History: Reports: None Endocrine/Metabolic History: Reports: Diabetes, Type II Hematologic History: Reports: None Oncologic (Cancer) History: Reports: None Dermatologic History: Reports: None - Infectious Disease History Infectious Disease History: Reports: Chicken Pox, Measles, Mumps - Past Surgical History HEENT Surgical History: Reports: Cataract Surgery GI Surgical History: Reports: Appendectomy Female Surgical History: Reports: Endometrial Ablation, Hysterectomy Social & Family History - Family History Family Medical History: Noncontributory - Tobacco Use Smoking Status *Q: Never Smoker - Caffeine Use Caffeine Use: Reports: Coffee, Tea - Alcohol Use Date of Last Drink: 10/02/19 Time of Last Drink: 18:00 - Recreational Drug Use Recreational Drug Use: No H&P Review of Systems - Review of Systems: Review Of Systems: See Below General: Reports: Weakness, Fatigue. Denies: Fever, Chills HEENT: Reports: No Symptoms Pulmonary: Reports: Shortness of Breath. Denies: Wheezing, Pleuritic Chest Pain, Cough, Sputum, Hemoptysis Cardiovascular: Reports: Palpitations, Dyspnea on Exertion, PND, Edema. Denies: Chest Pain, Orthopnea, Lightheadedness Gastrointestinal: Reports: No Symptoms Genitourinary: Reports: No Symptoms Musculoskeletal: Reports: No Symptoms Skin: Reports: No Symptoms Psychiatric: Reports: No Symptoms Neurological: Reports: No Symptoms Hematologic/Lymphatic: Reports: No Symptoms Immunologic: Reports: No Symptoms Exam - Exam Exam: See Below - Vital Signs Vital Signs: Last Vital Signs Temp 97.5 F 10/09/19 12:55 Pulse 121 H 10/09/19 15:04 Resp 20 10/09/19 12:55 BP 189/122 H 10/09/19 15:07 Pulse Ox 97 10/09/19 12:55 Weight: 145 lb - Exam Quality Assessment: Supplemental Oxygen, DVT Prophylaxis General: Alert, Oriented, Cooperative, Mild Distress HEENT: Conjunctiva Clear, Hearing Intact, Mucosa Moist & [place], Normal Nasal Septum, Posterior Pharynx Clear, Pupils Equal Neck: Supple, Trachea Midline, +2 Carotid Pulse wo Bruit Lungs: Rales. No: Rhonchi, Rub, Wheezing Cardiovascular: Normal S1, Normal S2, Irregular Rhythm, Tachycardia. No: Systolic Murmur, Diastolic Murmur GI/Abdominal Exam: Soft, Non-Tender, No Organomegaly, No Distention Back Exam: Normal Inspection, Full Range of Motion Extremities: Non-Tender, Pedal Edema Skin: Warm, Dry Neurological: Cranial Nerves Intact, Strength Equal Bilateral, Normal Speech, Normal Tone, Sensation Intact. No: Focal Deficit Neuro Extensive - Mental Status: Alert, Oriented x3, Normal Mood/Affect, Normal Cognition - Patient Data Lab Results Last 24 hrs: Laboratory Results - last 24 hr 10/09/19 10/09/19 10/09/19 Range/Units 12:26 12:26 12:27 WBC 6.2 (4.5-11.0) K/uL RBC 3.76 (3.30-5.50) M/uL Hgb 11.1 L (12.0-15.0) g/dL Hct 36.2 (36.0-48.0) % MCV 96 (80-98) fL MCH 30 (27-31) pg MCHC 31 L (32-36) % Plt Count 212 (150-400) K/uL Neut % (Auto) 72 H (36-66) % Lymph % (Auto) 19 L (24-44) % Stephenson % (Auto) 8 H (2-6) % Eos % (Auto) 1 L (2-4) % Baso % (Auto) 0 (0-1) % Sodium 143 (140-148) mmol/L Potassium 4.2 (3.6-5.2) mmol/L Chloride 105 (100-108) mmol/L Carbon Dioxide 29 (21-32) mmol/L Anion Gap 9.1 (5.0-14.0) mmol/L BUN 14 (7-18) mg/dL Creatinine 1.1 H (0.6-1.0) mg/dL Est Cr Clr Drug Dosing 27.83 mL/min Estimated GFR (MDRD) 47 L (>60) Glucose 158 H (74-106) mg/dL Calcium 9.0 (8.5-10.1) mg/dL Total Bilirubin 0.7 D (0.2-1.0) mg/dL AST 12 L (15-37) U/L ALT 17 (12-78) U/L Alkaline Phosphatase 99 (46-116) U/L Troponin I < 0.017 (0.000-0.056) ng/mL NT-Pro-B Natriuret Pep (5-450) pg/mL Total Protein 6.6 (6.4-8.2) g/dL Albumin 3.6 (3.4-5.0) g/dL Globulin 3.0 (2.3-3.5) g/dL Albumin/Globulin Ratio 1.2 (1.2-2.2) Urine Color (YELLOW) Urine Appearance (CLEAR) Urine pH (5.0-8.0) Ur Specific [place] (1.008-1.030) Urine Protein (NEGATIVE) mg/dL Urine Glucose (UA) (NEGATIVE) mg/dL Urine Ketones (NEGATIVE) mg/dL Urine Occult Blood (NEGATIVE) Urine Nitrite (NEGATIVE) Urine Bilirubin (NEGATIVE) Urine Urobilinogen (0.2-1.0) EU/dL Ur Leukocyte Esterase (NEGATIVE) Urine RBC (0-5) Urine WBC (0-5) Ur Epithelial Cells Amorphous Sediment Urine Bacteria Urine Mucus 10/09/19 10/09/19 Range/Units 12:27 13:39 WBC (4.5-11.0) K/uL RBC (3.30-5.50) M/uL Hgb (12.0-15.0) g/dL Hct (36.0-48.0) % MCV (80-98) fL MCH (27-31) pg MCHC (32-36) % Plt Count (150-400) K/uL Neut % (Auto) (36-66) % Lymph % (Auto) (24-44) % Stephenson % (Auto) (2-6) % Eos % (Auto) (2-4) % Baso % (Auto) (0-1) % Sodium (140-148) mmol/L Potassium (3.6-5.2) mmol/L Chloride (100-108) mmol/L Carbon Dioxide (21-32) mmol/L Anion Gap (5.0-14.0) mmol/L BUN (7-18) mg/dL Creatinine (0.6-1.0) mg/dL Est Cr Clr Drug Dosing mL/min Estimated GFR (MDRD) (>60) Glucose (74-106) mg/dL Calcium (8.5-10.1) mg/dL Total Bilirubin (0.2-1.0) mg/dL AST (15-37) U/L ALT (12-78) U/L Alkaline Phosphatase (46-116) U/L Troponin I (0.000-0.056) ng/mL NT-Pro-B Natriuret Pep 5580 H (5-450) pg/mL Total Protein (6.4-8.2) g/dL Albumin (3.4-5.0) g/dL Globulin (2.3-3.5) g/dL Albumin/Globulin Ratio (1.2-2.2) Urine Color Yellow (YELLOW) Urine Appearance Clear (CLEAR) Urine pH 6.0 (5.0-8.0) Ur Specific [place] 1.025 (1.008-1.030) Urine Protein 100 H (NEGATIVE) mg/dL Urine Glucose (UA) Negative (NEGATIVE) mg/dL Urine Ketones Negative (NEGATIVE) mg/dL Urine Occult Blood Negative (NEGATIVE) Urine Nitrite Negative (NEGATIVE) Urine Bilirubin Negative (NEGATIVE) Urine Urobilinogen 0.2 (0.2-1.0) EU/dL Ur Leukocyte Esterase Negative (NEGATIVE) Urine RBC 0-5 (0-5) Urine WBC 0-5 (0-5) Ur Epithelial Cells Moderate Amorphous Sediment Not seen Urine Bacteria Few Urine Mucus Not seen Result Diagrams: 10/09/19 12:26 10/09/19 12:26 Sepsis Event Note - Evaluation Sepsis Screening Result: No Definite Risk - Focused Exam Vital Signs: Vital Signs Temp Pulse Pulse Resp BP BP Pulse Ox 10/09/19 15:07 189/122 H 10/09/19 15:04 121 H 189/122 H 10/09/19 12:55 97.5 F 105 H 20 160/112 H 97 10/09/19 12:27 97.6 F 112 H 20 171/107 H 94 L Date Exam was Performed: 10/09/19 Time Exam was Performed: 15:26 *Q Meaningful Use (ADM) - VTE Risk Assess *Q Each Risk Factor Represents 1 Point: Swollen Legs, Current, Obesity ( BMI > 25 kg/m2), Congestive heart failure (CHF) Total Score 1 Point Risk Factors: 3 Each Risk Factor Represents 2 Points: None Total Score 2 Point Risk Factors: 0 Each Risk Factor Represents 3 Points: Age 75 Years or Greater Total Score 3 Point Risk Factors: 3 Each Risk Factor Represents 5 Points: None Total Score 5 Point Risk Factors: 0 Venous Thromboembolism Risk Factor Score *Q: 6 Problem List Initiated/Reviewed/Updated: Yes Orders Last 24hrs: Active Orders 24 hr Category Date Time Status Patient Status Manage Transfer [TRANSFER] Routine ADT 10/09/19 15:18 Ordered EKG Documentation Completion [RC] ASDIRECTED Care 10/09/19 12:18 Active Sodium Chloride 0.9% [Saline Flush] Med 10/09/19 12:19 Active 10 ml FLUSH ASDIRECTED PRN glyBURIDE [Micronase] Med 10/10/19 13:59 Once 2.5 mg PO WITHBREAKFAST ONE Saline Lock Insert [OM.PC] Routine Oth 10/09/19 12:19 Ordered Resuscitation Status Routine Resus Stat 10/09/19 15:22 Ordered EKG 12 Lead [EK] Routine Ther 10/09/19 12:18 Ordered Medication Orders Glyburide (Micronase) 2.5 mg PO WITHBREAKFAST ONE Stop: 10/10/19 14:00 Sodium Chloride (Saline Flush) 10 ml FLUSH ASDIRECTED PRN PRN Reason: Keep Vein Open Assessment/Plan Comment:: ASSESSMENT AND PLAN CONGESTIVE HEART FAILURE EXACERBATION-noted some PND over the past 3 nights. Last night's episode persisted into the day and she presented to the emergency department. History of increased peripheral edema over the past few days as well. Denies any symptoms of chest pain or pressure. -Furosemide 60 mg IV given in emergency department -Reassess in a.m. -Echocardiogram when available on Saturday -Continue current beta-varsha and DAVID inhibitor therapy ATRIAL FIBRILLATION WITH RAPID VENTRICULAR RESPONSE-on long-term anticoagulation with Eliquis. History of good rate control, she had not yet taken her beta-varsha today. -Usual dose of beta-varsha now -Cardiac monitoring -Continue anticoagulation with Eliquis -Consider increased dose of beta-varsha versus calcium channel varsha if rate control does not improve CHRONIC KIDNEY DISEASE STAGE IIIa -Closely monitor urine output and renal function with diuresis TYPE 2 DIABETES MELLITUS -Continue oral hypoglycemic therapy with metformin and glipizide -4 times daily glucometers -Low-dose sliding scale Humalog MAINTENANCE ISSUES -DVT prophylaxis; Lovenox 40 mg subcu daily -GI prophylaxis; continue outpatient PPI therapy -Jha catheter; not indicated -Nutrition; 2 g sodium diet -Nicotine dependence; not required CODE STATUS-FULL CODE ADMISSION STATUS-patient will be admitted to inpatient status, expect at least a 2 night hospital stay for evaluation and management of problems as outlined above. At the time of this admission I do not reasonably expected evaluation and management of this problem will require more than a 96 hour hospital stay. DISPOSITION-anticipate discharge to home after the hospital stay. PRIMARY CARE PROVIDER-[facility] - Mortality Measure Prognosis:: Good
[2019-10-09] MEDS ORDERED: Acetaminophen 325 MG Tab PO PRN (16:12)
[2019-10-09] MEDS ORDERED: Lisinopril 20 MG Tab PO SCH (16:12)
[2019-10-09] MEDS ORDERED: Glucose Gel 15 GM in 37.5 GM Tube PO PRN (16:12)
[2019-10-09] MEDS ORDERED: glipiZIDE 5 MG Tab.ER PO SCH (16:12)
[2019-10-09] MEDS ORDERED: Polyethylene Glycol 3350 Powder 17 GM Packet PO PRN (16:12)
[2019-10-09] MEDS ORDERED: Albuterol 0.083% 2.5 MG/3 ML Neb Soln NEB PRN (16:12)
[2019-10-09] MEDS ORDERED: Ondansetron 4 MG/2 ML SDV IV PRN (16:12)
[2019-10-09] MEDS ORDERED: 50% Dextrose in Water 50 ML Syringe IV PRN (16:12)
[2019-10-09] MEDS ORDERED: Enoxaparin 30 MG/0.3 ML Syringe SUBCUT SCH (18:00)
[2019-10-09] MEDS: Albuterol/Ipratropium 3.0-0.5 MG/3 ML Neb Soln NEB SCH ×3 (18:25→21:24)
[2019-10-09] MEDS: Insulin Lispro 100 Unit/ML 3 ML KwikPen SUBCUT SCH ×2 (18:26→21:22)
[2019-10-09] MEDS ORDERED: Metoprolol Succinate 50 MG Tab.ER PO STA (18:34)
[2019-10-09] MEDS: metFORMIN 500 MG Tab PO SCH (18:39)
[2019-10-09] MEDS: atorvaSTATin 20 MG Tab PO SCH (18:40)
[2019-10-09] MEDS: Allopurinol 100 MG Tab PO SCH (18:40)
[2019-10-09] MEDS: Pantoprazole 40 MG Tab.CR PO SCH (18:40)
[2019-10-09] MEDS ORDERED: Gabapentin 300 MG Cap PO SCH (21:00)
[2019-10-09] MEDS: Apixaban 5 MG Tab PO SCH (21:24)
[2019-10-09] MEDS: Gabapentin 300 MG Cap PO SCH (21:24)
[2019-10-10] MEDS: Albuterol/Ipratropium 3.0-0.5 MG/3 ML Neb Soln NEB SCH ×4 (06:43→21:24)
[2019-10-10] MEDS: metFORMIN 500 MG Tab PO SCH ×2 (07:34→16:58)
[2019-10-10] MEDS: Pantoprazole 40 MG Tab.CR PO SCH (07:34)
[2019-10-10] MEDS: Insulin Lispro 100 Unit/ML 3 ML KwikPen SUBCUT SCH ×4 (07:39→21:26)
[2019-10-10] MEDS ORDERED: Furosemide 40 MG/4 ML VIAL IVPUSH ONE (09:00)
[2019-10-10] MEDS ORDERED: Atenolol 25 MG Tab PO SCH (09:00)
[2019-10-10] MEDS: Metoprolol Succinate 50 MG Tab.ER PO SCH (09:28)
[2019-10-10] MEDS: Gabapentin 300 MG Cap PO SCH ×3 (09:28→21:25)
[2019-10-10] MEDS: Allopurinol 100 MG Tab PO SCH (09:29)
[2019-10-10] MEDS: atorvaSTATin 20 MG Tab PO SCH (09:29)
[2019-10-10] MEDS: Lisinopril 20 MG Tab PO SCH (09:29)
[2019-10-10] MEDS: glipiZIDE 5 MG Tab PO SCH (09:29)
[2019-10-10] MEDS: Apixaban 5 MG Tab PO SCH ×2 (09:30→21:24)
[2019-10-10] MEDS: Magnesium Oxide 400 MG Tab PO SCH ×2 (09:30→21:24)
[2019-10-10] MEDS: amLODIPine 10 MG Tab PO SCH (09:30)
[2019-10-10] MEDS: Magnesium Sulfate/Water 2 GM in Premix Bag 1 BAG IV SCH ×3 (09:31→21:25)
--- NOTE | 2019-10-10 10:55 | PCM.PN ---
- General Info Date of Service: 10/10/19 Subjective Update: Ms. Arce has been stable since admission yesterday. She did not experience PND during the night and reports less dyspnea with activity. Diuresis with furosemide given in the emergency department yesterday. Further diuretic therapy has been ordered this morning. Functional Status: Reports: Tolerating Diet, Ambulating, Urinating - Review of Systems General: Reports: Weakness, Fatigue. Denies: Fever, Chills Pulmonary: Reports: Shortness of Breath. Denies: Pleuritic Chest Pain, Cough, Sputum, Hemoptysis, Wheezing Cardiovascular: Reports: Dyspnea on Exertion, Edema. Denies: Chest Pain, Palpitations, Orthopnea, PND, Lightheadedness Gastrointestinal: Reports: No Symptoms - Patient Data Vitals - Most Recent: Last Vital Signs Temp 98.2 F 10/10/19 06:37 Pulse 91 10/10/19 09:28 Resp 16 10/10/19 06:37 BP 136/76 10/10/19 09:30 Pulse Ox 93 L 10/10/19 06:37 Weight - Most Recent: 146 lb 11.2 oz I&O - Last 24 Hours: Intake & Output 10/09/19 10/10/19 10/10/19 22:59 06:59 14:59 Intake Total 240 Output Total 1250 400 Balance -1250 -160 Lab Results Last 24 Hours: Laboratory Results - last 24 hr 10/09/19 10/09/19 10/09/19 Range/Units 12:26 12:26 12:27 WBC 6.2 (4.5-11.0) K/uL RBC 3.76 (3.30-5.50) M/uL Hgb 11.1 L (12.0-15.0) g/dL Hct 36.2 (36.0-48.0) % MCV 96 (80-98) fL MCH 30 (27-31) pg MCHC 31 L (32-36) % Plt Count 212 (150-400) K/uL Neut % (Auto) 72 H (36-66) % Lymph % (Auto) 19 L (24-44) % [place] % (Auto) 8 H (2-6) % Eos % (Auto) 1 L (2-4) % Baso % (Auto) 0 (0-1) % Sodium 143 (140-148) mmol/L Potassium 4.2 (3.6-5.2) mmol/L Chloride 105 (100-108) mmol/L Carbon Dioxide 29 (21-32) mmol/L Anion Gap 9.1 (5.0-14.0) mmol/L BUN 14 (7-18) mg/dL Creatinine 1.1 H (0.6-1.0) mg/dL Est Cr Clr Drug Dosing 27.83 mL/min Estimated GFR (MDRD) 47 L (>60) Glucose 158 H (74-106) mg/dL POC Glucose (74-106) MG/DL Calcium 9.0 (8.5-10.1) mg/dL Magnesium (1.8-2.4) mg/dL Total Bilirubin 0.7 D (0.2-1.0) mg/dL AST 12 L (15-37) U/L ALT 17 (12-78) U/L Alkaline Phosphatase 99 (46-116) U/L Troponin I < 0.017 (0.000-0.056) ng/mL NT-Pro-B Natriuret Pep (5-450) pg/mL Total Protein 6.6 (6.4-8.2) g/dL Albumin 3.6 (3.4-5.0) g/dL Globulin 3.0 (2.3-3.5) g/dL Albumin/Globulin Ratio 1.2 (1.2-2.2) Urine Color (YELLOW) Urine Appearance (CLEAR) Urine pH (5.0-8.0) Ur Specific [place] (1.008-1.030) Urine Protein (NEGATIVE) mg/dL Urine Glucose (UA) (NEGATIVE) mg/dL Urine Ketones (NEGATIVE) mg/dL Urine Occult Blood (NEGATIVE) Urine Nitrite (NEGATIVE) Urine Bilirubin (NEGATIVE) Urine Urobilinogen (0.2-1.0) EU/dL Ur Leukocyte Esterase (NEGATIVE) Urine RBC (0-5) Urine WBC (0-5) Ur Epithelial Cells Amorphous Sediment Urine Bacteria Urine Mucus 10/09/19 10/09/19 10/09/19 Range/Units 12:27 13:39 16:30 WBC (4.5-11.0) K/uL RBC (3.30-5.50) M/uL Hgb (12.0-15.0) g/dL Hct (36.0-48.0) % MCV (80-98) fL MCH (27-31) pg MCHC (32-36) % Plt Count (150-400) K/uL Neut % (Auto) (36-66) % Lymph % (Auto) (24-44) % [place] % (Auto) (2-6) % Eos % (Auto) (2-4) % Baso % (Auto) (0-1) % Sodium (140-148) mmol/L Potassium (3.6-5.2) mmol/L Chloride (100-108) mmol/L Carbon Dioxide (21-32) mmol/L Anion Gap (5.0-14.0) mmol/L BUN (7-18) mg/dL Creatinine (0.6-1.0) mg/dL Est Cr Clr Drug Dosing mL/min Estimated GFR (MDRD) (>60) Glucose (74-106) mg/dL POC Glucose 137 H (74-106) MG/DL Calcium (8.5-10.1) mg/dL Magnesium (1.8-2.4) mg/dL Total Bilirubin (0.2-1.0) mg/dL AST (15-37) U/L ALT (12-78) U/L Alkaline Phosphatase (46-116) U/L Troponin I (0.000-0.056) ng/mL NT-Pro-B Natriuret Pep 5580 H (5-450) pg/mL Total Protein (6.4-8.2) g/dL Albumin (3.4-5.0) g/dL Globulin (2.3-3.5) g/dL Albumin/Globulin Ratio (1.2-2.2) Urine Color Yellow (YELLOW) Urine Appearance Clear (CLEAR) Urine pH 6.0 (5.0-8.0) Ur Specific [place] 1.025 (1.008-1.030) Urine Protein 100 H (NEGATIVE) mg/dL Urine Glucose (UA) Negative (NEGATIVE) mg/dL Urine Ketones Negative (NEGATIVE) mg/dL Urine Occult Blood Negative (NEGATIVE) Urine Nitrite Negative (NEGATIVE) Urine Bilirubin Negative (NEGATIVE) Urine Urobilinogen 0.2 (0.2-1.0) EU/dL Ur Leukocyte Esterase Negative (NEGATIVE) Urine RBC 0-5 (0-5) Urine WBC 0-5 (0-5) Ur Epithelial Cells Moderate Amorphous Sediment Not seen Urine Bacteria Few Urine Mucus Not seen 10/09/19 10/10/19 10/10/19 Range/Units 21:00 04:30 04:30 WBC 7.4 (4.5-11.0) K/uL RBC 4.07 (3.30-5.50) M/uL Hgb 12.0 (12.0-15.0) g/dL Hct 39.0 (36.0-48.0) % MCV 96 (80-98) fL MCH 30 (27-31) pg MCHC 31 L (32-36) % Plt Count 213 (150-400) K/uL Neut % (Auto) 75 H (36-66) % Lymph % (Auto) 14 L (24-44) % [place] % (Auto) 8 H (2-6) % Eos % (Auto) 3 (2-4) % Baso % (Auto) 0 (0-1) % Sodium 143 (140-148) mmol/L Potassium 3.7 (3.6-5.2) mmol/L Chloride 103 (100-108) mmol/L Carbon Dioxide 29 (21-32) mmol/L Anion Gap 10.7 (5.0-14.0) mmol/L BUN 15 (7-18) mg/dL Creatinine 1.0 (0.6-1.0) mg/dL Est Cr Clr Drug Dosing 30.62 mL/min Estimated GFR (MDRD) 53 L (>60) Glucose 87 (74-106) mg/dL POC Glucose 184 H (74-106) MG/DL Calcium 9.0 (8.5-10.1) mg/dL Magnesium 1.4 L (1.8-2.4) mg/dL Total Bilirubin (0.2-1.0) mg/dL AST (15-37) U/L ALT (12-78) U/L Alkaline Phosphatase (46-116) U/L Troponin I (0.000-0.056) ng/mL NT-Pro-B Natriuret Pep (5-450) pg/mL Total Protein (6.4-8.2) g/dL Albumin (3.4-5.0) g/dL Globulin (2.3-3.5) g/dL Albumin/Globulin Ratio (1.2-2.2) Urine Color (YELLOW) Urine Appearance (CLEAR) Urine pH (5.0-8.0) Ur Specific [place] (1.008-1.030) Urine Protein (NEGATIVE) mg/dL Urine Glucose (UA) (NEGATIVE) mg/dL Urine Ketones (NEGATIVE) mg/dL Urine Occult Blood (NEGATIVE) Urine Nitrite (NEGATIVE) Urine Bilirubin (NEGATIVE) Urine Urobilinogen (0.2-1.0) EU/dL Ur Leukocyte Esterase (NEGATIVE) Urine RBC (0-5) Urine WBC (0-5) Ur Epithelial Cells Amorphous Sediment Urine Bacteria Urine Mucus 10/10/19 Range/Units 07:30 WBC (4.5-11.0) K/uL RBC (3.30-5.50) M/uL Hgb (12.0-15.0) g/dL Hct (36.0-48.0) % MCV (80-98) fL MCH (27-31) pg MCHC (32-36) % Plt Count (150-400) K/uL Neut % (Auto) (36-66) % Lymph % (Auto) (24-44) % [place] % (Auto) (2-6) % Eos % (Auto) (2-4) % Baso % (Auto) (0-1) % Sodium (140-148) mmol/L Potassium (3.6-5.2) mmol/L Chloride (100-108) mmol/L Carbon Dioxide (21-32) mmol/L Anion Gap (5.0-14.0) mmol/L BUN (7-18) mg/dL Creatinine (0.6-1.0) mg/dL Est Cr Clr Drug Dosing mL/min Estimated GFR (MDRD) (>60) Glucose (74-106) mg/dL POC Glucose 117 H (74-106) MG/DL Calcium (8.5-10.1) mg/dL Magnesium (1.8-2.4) mg/dL Total Bilirubin (0.2-1.0) mg/dL AST (15-37) U/L ALT (12-78) U/L Alkaline Phosphatase (46-116) U/L Troponin I (0.000-0.056) ng/mL NT-Pro-B Natriuret Pep (5-450) pg/mL Total Protein (6.4-8.2) g/dL Albumin (3.4-5.0) g/dL Globulin (2.3-3.5) g/dL Albumin/Globulin Ratio (1.2-2.2) Urine Color (YELLOW) Urine Appearance (CLEAR) Urine pH (5.0-8.0) Ur Specific [place] (1.008-1.030) Urine Protein (NEGATIVE) mg/dL Urine Glucose (UA) (NEGATIVE) mg/dL Urine Ketones (NEGATIVE) mg/dL Urine Occult Blood (NEGATIVE) Urine Nitrite (NEGATIVE) Urine Bilirubin (NEGATIVE) Urine Urobilinogen (0.2-1.0) EU/dL Ur Leukocyte Esterase (NEGATIVE) Urine RBC (0-5) Urine WBC (0-5) Ur Epithelial Cells Amorphous Sediment Urine Bacteria Urine Mucus Med Orders - Current: Current Medications Acetaminophen (Tylenol) 650 mg PO Q4H PRN PRN Reason: Pain (Mild 1-3)/fever Albuterol (Proventil Neb Soln) 2.5 mg NEB Q4H PRN PRN Reason: Shortness Of Breath/wheezing Albuterol/Ipratropium (Duoneb 3.0-0.5 Mg/3 Ml) 3 ml NEB QIDRT [facility] Last Admin: 10/10/19 06:43 Dose: 3 ml Documented by: Allopurinol (Zyloprim) 100 mg PO DAILY [facility] Last Admin: 10/10/19 09:29 Dose: 100 mg Documented by: Amlodipine Besylate (Norvasc) 10 mg PO DAILY [facility] Last Admin: 10/10/19 09:30 Dose: 10 mg Documented by: Apixaban (Eliquis) 5 mg PO BID [facility] Last Admin: 10/10/19 09:30 Dose: 5 mg Documented by: Atorvastatin Calcium (Lipitor) 40 mg PO DAILY [facility] Last Admin: 10/10/19 09:29 Dose: 40 mg Documented by: Dextrose (Glutose 15) 15 gm PO ONETIME PRN PRN Reason: Hypoglycemia Dextrose/Water (Dextrose 50% In Water) 50 ml IV ONETIME PRN PRN Reason: Hypoglycemia Gabapentin (Neurontin) 300 mg PO TID [facility] Last Admin: 10/10/19 09:28 Dose: 300 mg Documented by: Glipizide (Glucotrol) 10 mg PO DAILY [facility] Last Admin: 10/10/19 09:29 Dose: 10 mg Documented by: Magnesium Sulfate 2 gm/ Premix 50 mls @ 25 mls/hr IV Q6H [facility] Stop: 10/10/19 22:59 Last Admin: 10/10/19 09:31 Dose: 25 mls/hr Documented by: Insulin Human Lispro (Humalog) 0 unit SUBCUT QIDACANDBED [facility]; Protocol Last Admin: 10/10/19 07:39 Dose: Not Given Documented by: Lisinopril (Prinivil) 40 mg PO DAILY [facility] Last Admin: 10/10/19 09:29 Dose: 40 mg Documented by: Magnesium Oxide (Magnesium Oxide) 400 mg PO BID [facility] Last Admin: 10/10/19 09:30 Dose: 400 mg Documented by: Metformin HCl (Glucophage) 1,000 mg PO BIDMEALS [facility] Last Admin: 10/10/19 07:34 Dose: 1,000 mg Documented by: Metoprolol Succinate (Toprol Xl) 200 mg PO DAILY [facility] Last Admin: 10/10/19 09:28 Dose: 200 mg Documented by: Ondansetron HCl (Zofran) 4 mg IV Q4H PRN PRN Reason: Nausea/Vomiting Pantoprazole Sodium (Protonix) 40 mg PO ACBREAKFAST [facility] Last Admin: 10/10/19 07:34 Dose: 40 mg Documented by: Polyethylene Glycol (Miralax) 17 gm PO DAILY PRN PRN Reason: Constipation Sodium Chloride (Saline Flush) 10 ml FLUSH ASDIRECTED PRN PRN Reason: Keep Vein Open Discontinued Medications Amlodipine Besylate (Norvasc) 10 mg PO ONETIME ONE Stop: 10/09/19 13:59 Last Admin: 10/09/19 15:07 Dose: 10 mg Documented by: Apixaban (Eliquis) 5 mg PO ONETIME ONE Stop: 10/09/19 13:57 Last Admin: 10/09/19 15:08 Dose: 5 mg Documented by: Atenolol (Tenormin) 25 mg PO ONETIME ONE Stop: 10/09/19 13:58 Last Admin: 10/09/19 15:04 Dose: 25 mg Documented by: Atenolol (Tenormin) 25 mg PO DAILY [facility] Furosemide (Lasix) 60 mg IVPUSH ONETIME ONE Stop: 10/09/19 12:20 Last Admin: 10/09/19 13:00 Dose: 60 mg Documented by: Furosemide (Lasix) 40 mg IVPUSH NOW ONE Stop: 10/10/19 09:01 Last Admin: 10/10/19 09:30 Dose: 40 mg Documented by: Gabapentin (Neurontin) 300 mg PO ONETIME ONE Stop: 10/09/19 13:58 Last Admin: 10/09/19 15:08 Dose: 300 mg Documented by: Gabapentin (Neurontin) 300 mg PO BID ARJUN Glyburide (Micronase) 2.5 mg PO WITHBREAKFAST ONE Stop: 10/09/19 14:00 Last Admin: 10/09/19 16:01 Dose: 2.5 mg Documented by: Lisinopril (Prinivil) 20 mg PO DAILY ARJUN Last Admin: 10/09/19 18:42 Dose: Not Given Documented by: Metoprolol Succinate (Toprol Xl) 100 mg PO ONETIME STA Stop: 10/09/19 18:35 Last Admin: 10/09/19 18:46 Dose: 100 mg Documented by: Sodium Chloride (Saline Flush) 10 ml FLUSH ASDIRECTED PRN PRN Reason: Keep Vein Open - Exam Quality Assessment: DVT Prophylaxis General: Alert, Oriented, Cooperative, Mild Distress Lungs: Clear to Auscultation, Normal Respiratory Effort, Decreased Breath Sounds. No: Rales, Rhonchi, Wheezing Cardiovascular: Regular Rate, No Murmurs, Irregular Rhythm GI/Abdominal Exam: Soft, Non-Tender, No Organomegaly, No Distention Extremities: Non-Tender, Pedal Edema Sepsis Event Note - Evaluation Sepsis Screening Result: No Definite Risk - Focused Exam Vital Signs: Vital Signs Temp Pulse Pulse Resp BP BP Pulse Ox 10/10/19 09:30 136/76 10/10/19 09:29 136/76 10/10/19 09:28 91 136/76 10/10/19 06:37 98.2 F 91 16 136/76 93 L 10/10/19 02:26 97.0 F 88 20 133/84 91 L Date Exam was Performed: 10/10/19 Time Exam was Performed: 10:52 - Problem List Review Problem List Initiated/Reviewed/Updated: Yes - My Orders Last 24 Hours: My Active Orders 10/09/19 Lunch 2 Gram Sodium Diet [DIET] 10/09/19 15:22 Resuscitation Status Routine 10/09/19 16:12 Acetaminophen [Tylenol] 650 mg PO Q4H PRN Albuterol [Proventil Neb Soln] 2.5 mg NEB Q4H PRN Albuterol/Ipratropium [DuoNeb 3.0-0.5 MG/3 ML] 3 ml NEB QIDRT Dextrose 50% in Water 50 ml IV ONETIME PRN Dextrose [Glutose 15] 15 gm PO ONETIME PRN Ondansetron [Zofran] 4 mg IV Q4H PRN Sodium Chloride 0.9% [Saline Flush] 10 ml FLUSH ASDIRECTED PRN allopurinoL [Zyloprim] 100 mg PO DAILY polyethylene glycoL 3350 [MiraLAX] 17 gm PO DAILY PRN 10/09/19 16:12 Patient Status [ADT] Routine Ambulate [RC] QID Cardiac Monitoring [RC] .As Directed Communication Order [RC] STAT Diabetes Education [RC] Click to Edit Height and Weight [RC] 0500 Intake and Output [RC] QSHIFT Notify Provider Vital Signs [RC] ASDIRECTED Notify Provider [RC] PRN Oxygen Therapy [RC] PRN RT Aerosol Therapy [RC] ASDIRECTED Up With Assistance [RC] ASDIRECTED Up to Chair [RC] QID Vital Signs [RC] Q4H Saline Lock Insert [OM.PC] Routine 10/09/19 16:30 Pantoprazole [ProTONIX] 40 mg PO ACBREAKFAST atorvaSTATin [Lipitor] 40 mg PO DAILY 10/09/19 17:00 Insulin Lispro [HumaLOG] See Protocol SUBCUT QIDACANDBED metFORMIN [Glucophage] 1,000 mg PO BIDMEALS 10/09/19 21:00 Apixaban [Eliquis] 5 mg PO BID Gabapentin [Neurontin] 300 mg PO TID 10/10/19 09:00 Magnesium Oxide 400 mg PO BID Magnesium Sulfate/Water [Magnesium Sulfate in Water Premix] 2 gm Premix Bag 1 bag IV Q6H Metoprolol Succinate [Toprol XL] 200 mg PO DAILY amLODIPine [Norvasc] 10 mg PO DAILY glipiZIDE [Glucotrol] 10 mg PO DAILY lisinopriL [Prinivil] 40 mg PO DAILY 10/10/19 11:30 GLUCOSE POC LAB TO COLLECT JPM [POC] QIDACANDBED 10/10/19 16:30 GLUCOSE POC LAB TO COLLECT JPM [POC] QIDACANDBED 10/10/19 21:00 GLUCOSE POC LAB TO COLLECT JPM [POC] QIDACANDBED 10/11/19 05:00 BASIC METABOLIC PANEL,BMP [CHEM] Timed MAGNESIUM [CHEM] Timed 10/11/19 07:30 GLUCOSE POC LAB TO COLLECT JPM [POC] QIDACANDBED 10/11/19 11:30 GLUCOSE POC LAB TO COLLECT JPM [POC] QIDACANDBED 10/11/19 16:30 GLUCOSE POC LAB TO COLLECT JPM [POC] QIDACANDBED 10/11/19 21:00 GLUCOSE POC LAB TO COLLECT JPM [POC] QIDACANDBED 10/12/19 07:30 GLUCOSE POC LAB TO COLLECT JPM [POC] QIDACANDBED 10/12/19 08:00 Echo Comp wo Cont [US] Urgent 10/12/19 11:30 GLUCOSE POC LAB TO COLLECT JPM [POC] QIDACANDBED 10/12/19 16:30 GLUCOSE POC LAB TO COLLECT JPM [POC] QIDACANDBED 10/12/19 21:00 GLUCOSE POC LAB TO COLLECT JPM [POC] QIDACANDBED 10/13/19 07:30 GLUCOSE POC LAB TO COLLECT JPM [POC] QIDACANDBED 10/13/19 11:30 GLUCOSE POC LAB TO COLLECT JPM [POC] QIDACANDBED 10/13/19 16:30 GLUCOSE POC LAB TO COLLECT JPM [POC] QIDACANDBED 10/13/19 21:00 GLUCOSE POC LAB TO COLLECT JPM [POC] QIDACANDBED 10/14/19 07:30 GLUCOSE POC LAB TO COLLECT JPM [POC] QIDACANDBED 10/14/19 11:30 GLUCOSE POC LAB TO COLLECT JPM [POC] QIDACANDBED - Plan Plan:: ASSESSMENT AND PLAN CONGESTIVE HEART FAILURE EXACERBATION-symptomatically improved with diuresis -Furosemide 40 mg IV today -Reassess in a.m. -Echocardiogram when available on Saturday -Continue current beta-varsha and DAVID inhibitor therapy ATRIAL FIBRILLATION WITH RAPID VENTRICULAR RESPONSE-right under better control with beta-varsha therapy -Cardiac monitoring -Continue anticoagulation with Eliquis -Consider increased dose of beta-varsha versus calcium channel varsha if rate control does not improve CHRONIC KIDNEY DISEASE STAGE IIIa -Closely monitor urine output and renal function with diuresis TYPE 2 DIABETES MELLITUS -Continue oral hypoglycemic therapy with metformin and glipizide -4 times daily glucometers -Low-dose sliding scale Humalog MAINTENANCE ISSUES -DVT prophylaxis; Lovenox 40 mg subcu daily -GI prophylaxis; continue outpatient PPI therapy -Jha catheter; not indicated -Nutrition; 2 g sodium diet -Nicotine dependence; not required CODE STATUS-FULL CODE ADMISSION STATUS-patient will be admitted to inpatient status, expect at least a 2 night hospital stay for evaluation and management of problems as outlined above. At the time of this admission I do not reasonably expected evaluation and management of this problem will require more than a 96 hour hospital stay. DISPOSITION-anticipate discharge to home after the hospital stay. PRIMARY CARE PROVIDER-[facility] Fried
[2019-10-11 06:50] VITALS: BP 131/69
[2019-10-11] MEDS: Albuterol/Ipratropium 3.0-0.5 MG/3 ML Neb Soln NEB SCH ×2 (07:22→11:09)
[2019-10-11] MEDS: Lisinopril 20 MG Tab PO SCH (08:02)
[2019-10-11] MEDS: metFORMIN 500 MG Tab PO SCH (08:03)
[2019-10-11] MEDS: Metoprolol Succinate 50 MG Tab.ER PO SCH (08:03)
[2019-10-11] MEDS: Apixaban 5 MG Tab PO SCH (08:04)
[2019-10-11] MEDS: Magnesium Oxide 400 MG Tab PO SCH (08:04)
[2019-10-11] MEDS: Gabapentin 300 MG Cap PO SCH (08:04)
[2019-10-11] MEDS: amLODIPine 10 MG Tab PO SCH (08:04)
[2019-10-11] MEDS: atorvaSTATin 20 MG Tab PO SCH (08:04)
[2019-10-11] MEDS: glipiZIDE 5 MG Tab PO SCH (08:04)
[2019-10-11] MEDS: Pantoprazole 40 MG Tab.CR PO SCH (08:04)
[2019-10-11] MEDS: Allopurinol 100 MG Tab PO SCH (08:05)
[2019-10-11] MEDS: Insulin Lispro 100 Unit/ML 3 ML KwikPen SUBCUT SCH (08:05)
[2019-10-11] MEDS ORDERED: Furosemide 40 MG/4 ML VIAL IVPUSH ONE (09:00)
--- NOTE | 2019-10-11 09:47 | PCM.DCSUM1 ---
Discharge Summary - Hospital Course Brief History: Ms. Arce is an 83-year-old woman who was admitted through the emergency department with shortness of breath and PND secondary to congestive heart failure exacerbation. - Discharge Data Discharge Date: 10/11/19 Discharge Disposition: Home, Self-Care 01 Condition: Good - Referral to Home Health Primary Care Physician: DEISI Jennings - Discharge Diagnosis/Problem(s) (1) CHF (congestive heart failure) SNOMED Code(s): 80918294 ICD Code: I50.9 - HEART FAILURE, UNSPECIFIED Status: Acute Current Visit: Yes (2) CKD (chronic kidney disease) stage 3, GFR 30-59 ml/min SNOMED Code(s): 537770391 ICD Code: N18.3 - CHRONIC KIDNEY DISEASE, STAGE 3 (MODERATE) Status: Acute Current Visit: Yes (3) Atrial fibrillation SNOMED Code(s): 09149250 ICD Code: I48.91 - UNSPECIFIED ATRIAL FIBRILLATION Status: Acute Current Visit: No - Patient Summary/Data Hospital Course: Ms. Arce is an 83-year-old woman who was admitted through the emergency department with symptoms of shortness of breath and weakness secondary to congestive heart failure exacerbation. Over the last 3 days she had experienced symptoms of PND at night with waking up very short of breath. First 2 nights shortness of breath resolved spontaneously but early this morning she awoke with shortness of breath and it persisted so she eventually presented to the emergency department. Chest x-ray and CT scan of the chest show evidence of some pulmonary edema and bilateral pleural effusions. She does report a previous history of asthma, denies COPD or smoking history. She also has experienced increase in peripheral edema over the past few days. She has had no symptoms of chest pain or pressure, EKG shows no acute ST segment changes, troponin is within normal range. CT scan of the chest shows no evidence of mass or infiltrate. She was given IV furosemide in the emergency department and daily during hospital stay. This did result in a good diuresis and resolution of her PND as well as dyspnea with exertion. Edema improved but had not totally resolved by the time of discharge. She will be discharged home with daily dose of oral furosemide as well as a potassium supplement. She has been instructed on the importance of a low-sodium diet. Echocardiogram will be obtained as an outpatient tomorrow on October 11. Follow-up appointment will be scheduled with her primary care provider within 1 week. Activity will be as tolerated and she will be on a 2 g sodium diabetic diet. - Patient Instructions Diet: Low Sodium, Diabetic Diet Activity: As Tolerated Other/Special Instructions: Please schedule follow-up appointment with primary care provider within 1 week. Please schedule echocardiogram as an outpatient for October 11. - Discharge Plan *PRESCRIPTION DRUG MONITORING PROGRAM REVIEWED*: Not Applicable *COPY OF PRESCRIPTION DRUG MONITORING REPORT IN PATIENT [place]: Not Applicable Prescriptions/Med Rec: Furosemide 20 mg PO DAILY #30 tablet Potassium Chloride 20 meq PO DAILY #30 tablet.er Home Medications: Home Meds Omeprazole 20 mg PO DAILY 10/06/13 [History] glyBURIDE [Micronase] 2.5 mg PO DAILY 10/06/13 [History] metFORMIN [Glucophage] 1,000 mg PO BIDM 10/06/13 [History] Allopurinol [Zyloprim] 100 mg PO DAILY 10/15/15 [History] Gabapentin [Neurontin] 300 mg PO TID 10/15/15 [History] amLODIPine [Norvasc] 10 mg PO DAILY 10/15/15 [History] Lisinopril 40 mg PO DAILY 08/08/17 [History] atorvaSTATin [Lipitor] 40 mg PO DAILY 08/08/17 [History] Apixaban [Eliquis] 5 mg PO BID 09/04/18 [History] Aspirin [Amite Aspirin EC] 81 mg PO DAILY 10/09/19 [History] Gabapentin [Neurontin] 300 mg PO TID 10/09/19 [History] Isosorbide Mononitrate [Isosorbide Mononitrate ER] 30 mg PO DAILY 10/09/19 [History] Metoprolol Succinate 200 mg PO DAILY 10/09/19 [History] glipiZIDE [Glucotrol] 10 mg PO DAILY 10/09/19 [History] Furosemide 20 mg PO DAILY #30 tablet 10/11/19 [Rx] Potassium Chloride 20 meq PO DAILY #30 tablet.er 10/11/19 [Rx] Referrals: María Fried PA [Primary Care Provider] - - Discharge Summary/Plan Comment DC Time >30 min.: No - Patient Data Vitals - Most Recent: Last Vital Signs Temp 97.9 F 10/11/19 06:48 Pulse 88 10/11/19 08:03 Resp 16 10/11/19 06:48 BP 131/69 10/11/19 08:04 Pulse Ox 99 10/11/19 07:23 Weight - Most Recent: 149 lb I&O - Last 24 hours: Intake & Output 10/10/19 10/11/19 10/11/19 22:59 06:59 14:59 Intake Total 240 370 Output Total 500 200 Balance -260 -200 370 Lab Results - Last 24 hrs: Laboratory Results - last 24 hr 10/10/19 10/10/19 10/10/19 Range/Units 11:30 16:30 21:00 Sodium (140-148) mmol/L Potassium (3.6-5.2) mmol/L Chloride (100-108) mmol/L Carbon Dioxide (21-32) mmol/L Anion Gap (5.0-14.0) mmol/L BUN (7-18) mg/dL Creatinine (0.6-1.0) mg/dL Est Cr Clr Drug Dosing mL/min Estimated GFR (MDRD) (>60) Glucose (74-106) mg/dL POC Glucose 201 H 72 L 176 H (74-106) MG/DL Calcium (8.5-10.1) mg/dL Magnesium (1.8-2.4) mg/dL 10/11/19 10/11/19 Range/Units 04:20 07:30 Sodium 141 (140-148) mmol/L Potassium 3.6 (3.6-5.2) mmol/L Chloride 103 (100-108) mmol/L Carbon Dioxide 29 (21-32) mmol/L Anion Gap 8.7 (5.0-14.0) mmol/L BUN 15 (7-18) mg/dL Creatinine 1.1 H (0.6-1.0) mg/dL Est Cr Clr Drug Dosing 27.83 mL/min Estimated GFR (MDRD) 47 L (>60) Glucose 141 H (74-106) mg/dL POC Glucose 151 H (74-106) MG/DL Calcium 8.6 (8.5-10.1) mg/dL Magnesium 2.7 H D (1.8-2.4) mg/dL Med Orders - Current: Current Medications Acetaminophen (Tylenol) 650 mg PO Q4H PRN PRN Reason: Pain (Mild 1-3)/fever Albuterol (Proventil Neb Soln) 2.5 mg NEB Q4H PRN PRN Reason: Shortness Of Breath/wheezing Albuterol/Ipratropium (Duoneb 3.0-0.5 Mg/3 Ml) 3 ml NEB QIDRT [facility] Last Admin: 10/11/19 07:22 Dose: 3 ml Documented by: Allopurinol (Zyloprim) 100 mg PO DAILY [facility] Last Admin: 10/11/19 08:05 Dose: 100 mg Documented by: Amlodipine Besylate (Norvasc) 10 mg PO DAILY [facility] Last Admin: 10/11/19 08:04 Dose: 10 mg Documented by: Apixaban (Eliquis) 5 mg PO BID [facility] Last Admin: 10/11/19 08:04 Dose: 5 mg Documented by: Atorvastatin Calcium (Lipitor) 40 mg PO DAILY [facility] Last Admin: 10/11/19 08:04 Dose: 40 mg Documented by: Dextrose (Glutose 15) 15 gm PO ONETIME PRN PRN Reason: Hypoglycemia Dextrose/Water (Dextrose 50% In Water) 50 ml IV ONETIME PRN PRN Reason: Hypoglycemia Gabapentin (Neurontin) 300 mg PO TID [facility] Last Admin: 10/11/19 08:04 Dose: 300 mg Documented by: Glipizide (Glucotrol) 10 mg PO DAILY [facility] Last Admin: 10/11/19 08:04 Dose: 10 mg Documented by: Insulin Human Lispro (Humalog) 0 unit SUBCUT QIDACANDBED [facility]; Protocol Last Admin: 10/11/19 08:05 Dose: 1 unit Documented by: Lisinopril (Prinivil) 40 mg PO DAILY [facility] Last Admin: 10/11/19 08:02 Dose: 40 mg Documented by: Magnesium Oxide (Magnesium Oxide) 400 mg PO BID [facility] Last Admin: 10/11/19 08:04 Dose: 400 mg Documented by: Metformin HCl (Glucophage) 1,000 mg PO BIDMEALS [facility] Last Admin: 10/11/19 08:03 Dose: 1,000 mg Documented by: Metoprolol Succinate (Toprol Xl) 200 mg PO DAILY [facility] Last Admin: 10/11/19 08:03 Dose: 200 mg Documented by: Ondansetron HCl (Zofran) 4 mg IV Q4H PRN PRN Reason: Nausea/Vomiting Pantoprazole Sodium (Protonix) 40 mg PO ACBREAKFAST ARJUN Last Admin: 10/11/19 08:04 Dose: 40 mg Documented by: Polyethylene Glycol (Miralax) 17 gm PO DAILY PRN PRN Reason: Constipation Potassium Chloride (Klor-Con M20) 40 meq PO ONETIME ONE Stop: 10/11/19 09:39 Sodium Chloride (Saline Flush) 10 ml FLUSH ASDIRECTED PRN PRN Reason: Keep Vein Open Discontinued Medications Amlodipine Besylate (Norvasc) 10 mg PO ONETIME ONE Stop: 10/09/19 13:59 Last Admin: 10/09/19 15:07 Dose: 10 mg Documented by: Apixaban (Eliquis) 5 mg PO ONETIME ONE Stop: 10/09/19 13:57 Last Admin: 10/09/19 15:08 Dose: 5 mg Documented by: Atenolol (Tenormin) 25 mg PO ONETIME ONE Stop: 10/09/19 13:58 Last Admin: 10/09/19 15:04 Dose: 25 mg Documented by: Atenolol (Tenormin) 25 mg PO DAILY [facility] Furosemide (Lasix) 60 mg IVPUSH ONETIME ONE Stop: 10/09/19 12:20 Last Admin: 10/09/19 13:00 Dose: 60 mg Documented by: Furosemide (Lasix) 40 mg IVPUSH NOW ONE Stop: 10/10/19 09:01 Last Admin: 10/10/19 09:30 Dose: 40 mg Documented by: Furosemide (Lasix) 40 mg IVPUSH NOW ONE Stop: 10/11/19 09:01 Last Admin: 10/11/19 09:23 Dose: 40 mg Documented by: Gabapentin (Neurontin) 300 mg PO ONETIME ONE Stop: 10/09/19 13:58 Last Admin: 10/09/19 15:08 Dose: 300 mg Documented by: Gabapentin (Neurontin) 300 mg PO BID [facility] Glyburide (Micronase) 2.5 mg PO WITHBREAKFAST ONE Stop: 10/09/19 14:00 Last Admin: 10/09/19 16:01 Dose: 2.5 mg Documented by: Magnesium Sulfate 2 gm/ Premix 50 mls @ 25 mls/hr IV Q6H ARJUN Stop: 10/10/19 22:59 Last Admin: 10/10/19 21:25 Dose: 25 mls/hr Documented by: Lisinopril (Prinivil) 20 mg PO DAILY [facility] Last Admin: 10/09/19 18:42 Dose: Not Given Documented by: Metoprolol Succinate (Toprol Xl) 100 mg PO ONETIME STA Stop: 10/09/19 18:35 Last Admin: 10/09/19 18:46 Dose: 100 mg Documented by: Sodium Chloride (Saline Flush) 10 ml FLUSH ASDIRECTED PRN PRN Reason: Keep Vein Open - Exam Quality Assessment: Reports: DVT Prophylaxis General: Reports: Alert, Oriented, Cooperative, No Acute Distress Lungs: Reports: Clear to Auscultation, Normal Respiratory Effort Cardiovascular: Reports: Regular Rate, No Murmurs, Irregular Rhythm GI/Abdominal Exam: Soft, Non-Tender, No Organomegaly, No Distention Extremities: Non-Tender, No Pedal Edema
[2019-10-11] MEDS ORDERED: Potassium Chloride 20 MEQ Tab.ER PO ONE (10:00)
[2019-10-11 11:13] VITALS: PULSE 90
== END 2019-10-11 12:30 | disposition home or self-care (01) | DRG 293 ==
LOC: JP.ED 12:11 → JP.2SS 15:18
PROVIDERS: ADMIT Hospitalist; ATTEND Hospitalist
DX: E87.70 Fluid overload, unspecified (principal); J98.59 Other diseases of mediastinum, not elsewhere classified; H54.7 Unspecified visual loss; I13.0 Hypertensive heart and chronic kidney disease with heart failure and stage 1 through stage 4 chronic kidney disease, or unspecified chronic kidney disease; I10 Essential (primary) hypertension; I50.9 Heart failure, unspecified; N18.3 Chronic kidney disease, stage 3 (moderate); K21.9 Gastro-esophageal reflux disease without esophagitis; E11.22 Type 2 diabetes mellitus with diabetic chronic kidney disease; M19.90 Unspecified osteoarthritis, unspecified site; E11.9 Type 2 diabetes mellitus without complications; H40.9 Unspecified glaucoma; I48.91 Unspecified atrial fibrillation; Z90.710 Acquired absence of both cervix and uterus; E78.00 Pure hypercholesterolemia, unspecified; Z88.1 Allergy status to other antibiotic agents; J44.9 Chronic obstructive pulmonary disease, unspecified; Z86.73 Personal history of transient ischemic attack (TIA), and cerebral infarction without residual deficits; Z79.01 Long term (current) use of anticoagulants; Z79.84 Long term (current) use of oral hypoglycemic drugs; Z79.899 Other long term (current) drug therapy; Z88.0 Allergy status to penicillin; Z88.2 Allergy status to sulfonamides; Z88.5 Allergy status to narcotic agent; Z98.49 Cataract extraction status, unspecified eye
CPT/HCPCS: 36415; 71045 ×2; 71250 ×2; 80053; 81001; 83880; 84484; 85025; 93005; A9270 ×4; J1940; 80048; 82962; 83735; 94640; 96374; 99285-25; J1815; J3475; J7620-GY

== ENCOUNTER 2020-04-17 23:33 | Inpatient (IN) | payer MEDICARE ==
[2020-04-17] MEDS ORDERED: Sodium Chloride 0.9% 10 ML Syringe FLUSH PRN (23:41)
--- NOTE | 2020-04-17 23:48 | EDM.PDOC ---
ED HPI GENERAL MEDICAL PROBLEM - General Chief Complaint: General Stated Complaint: MEDICAL VIA [facility] Time Seen by Provider: 04/17/20 23:41 Source of Information: Reports: Patient History Limitations: Reports: Altered Mental Status - History of Present Illness INITIAL COMMENTS - FREE TEXT/NARRATIVE: Sita is an 84-year-old female presenting to the ED via [facility] for evaluation of increased confusion and peripheral edema. The patient's son contacted EMS reporting that the patient had been stuck on the toilet for 17 hours. EMS reports that both the patient and her son appear to be somewhat confused. The patient states that she was only on the toilet for 15 to 20 minutes. The son reports that he saw her on the toilet this morning when she was going to take a shower and then found her this evening still sitting on the toilet in similar attire having not showered. The remainder of the story remains unclear as neither the patient nor the son really are considered reliable historians. - Related Data Allergies Allergy/AdvReac Type Severity Reaction Status Date / Time Penicillins Allergy Intermediate Respiratory Verified 04/18/20 00:17 Distress erythromycin base Allergy Rash Verified 04/18/20 00:56 oxybutynin Allergy Nausea Verified 04/18/20 00:56 Sulfa (Sulfonamide Allergy Rash Verified 04/18/20 00:17 Antibiotics) azithromycin AdvReac Vomiting Verified 04/18/20 00:17 codeine AdvReac Nausea and Verified 04/18/20 00:17 Vomiting diazepam [From Valium] AdvReac Disorientat Verified 04/18/20 00:17 ion Home Meds: Home Meds metFORMIN [Glucophage] 1,000 mg PO BIDM 10/06/13 [History] Allopurinol [Zyloprim] 100 mg PO DAILY 10/15/15 [History] Lisinopril 40 mg PO DAILY 08/08/17 [History] atorvaSTATin [Lipitor] 40 mg PO DAILY 08/08/17 [History] Apixaban [Eliquis] 5 mg PO BID 09/04/18 [History] Aspirin [[place] Aspirin EC] 81 mg PO DAILY 10/09/19 [History] Gabapentin [Neurontin] 300 mg PO TID 10/09/19 [History] Isosorbide Mononitrate [Isosorbide Mononitrate ER] 30 mg PO DAILY 10/09/19 [History] Metoprolol Succinate 200 mg PO DAILY 10/09/19 [History] glipiZIDE [Glucotrol] 10 mg PO DAILY 10/09/19 [History] Magnesium 250 mg PO DAILY 10/21/19 [History] Acetaminophen/Caffeine [Excedrin Tension Headache] 1 tab PO ASDIRECTED PRN [History] allopurinoL [Zyloprim] 100 mg PO DAILY 10/23/19 [History] Cholecalciferol (Vitamin D3) [Vitamin D3] 2,000 unit PO DAILY 04/18/20 [History] Digoxin [Digox] 125 mcg PO DAILY 04/18/20 [History] Furosemide 20 mg PO DAILY 04/18/20 [History] Omeprazole 20 mg PO DAILY 04/18/20 [History] Potassium Chloride [Klor-Con M20] 20 meq PO DAILY 04/18/20 [History] Past Medical History HEENT History: Reports: Cataract, Glaucoma, Impaired Vision Cardiovascular History: Reports: Afib, High Cholesterol, Hypertension Respiratory History: Reports: Asthma, COPD Gastrointestinal History: Reports: GERD Genitourinary History: Reports: Chronic Renal Insuffiency [employer] History: Reports: Musculoskeletal History: Reports: Osteoarthritis, Other (See Below) Other Musculoskeletal History: right hip pain Neurological History: Reports: CVA, Migraines Psychiatric History: Reports: None Endocrine/Metabolic History: Reports: Diabetes, Type II Hematologic History: Reports: None Oncologic (Cancer) History: Reports: None Dermatologic History: Reports: None - Infectious Disease History Infectious Disease History: Reports: Chicken Pox, Measles, Mumps - Past Surgical History HEENT Surgical History: Reports: Cataract Surgery GI Surgical History: Reports: Appendectomy Female Surgical History: Reports: Endometrial Ablation, Hysterectomy Social & Family History - Family History Family Medical History: No Pertinent Family History - Caffeine Use Caffeine Use: Reports: Coffee, Tea ED ROS GENERAL - Review of Systems Review Of Systems: Unable To Obtain Reason Not Obtained: Confusion/altered mental status ED EXAM, GENERAL - Physical Exam Exam: See Below Exam Limited By: Altered Mental Status General Appearance: Alert, Anxious, Mild Distress Eye Exam: Bilateral Eye: EOMI, PERRL Throat/Mouth: Normal Voice, Other (Dry mucous membranes) Head: Atraumatic, Normocephalic Neck: Normal Inspection, Non-Tender Respiratory/Chest: No Respiratory Distress, Lungs Clear Cardiovascular: Irregularly Irregular, Other (3+ peripheral edema to mid thighs. Significant deformity around the buttock and posterior thighs consistent with being on a toilet seat for a prolonged period of time causing distal edema likely due to lymphatic compression.) Peripheral Pulses: 2+: Radial (L), Radial (R) GI/Abdominal: Normal Bowel Sounds, Soft, Non-Tender (Female) Exam: Other (Significant erythema in the inguinal creases consistent with a Radha dermatitis) Back Exam: Normal Inspection Extremities: Pedal Edema, Leg Pain, Increased Warmth, Redness (Redness, increased heat, and tenderness around the distal right thigh, knee, and calf. This is distal to where the indentation from the toilet seat is imprinted on the back of the thigh. There is a lesser degree of erythema and increased heat on the left thigh, knee, and calf.) Neurological: Alert, No Motor/Sensory Deficits, Confused, Slow to Respond Psychiatric: Anxious Skin Exam: Erythema, Increased Warmth Lymphatic: No Adenopathy #1 Interpretation EKG Date: 04/17/20 Rhythm: A-Fib Rate (Beats/Min): 136 [place]: Other (Left anterior fascicular block) QRS: Normal (LVH by voltage criteria. Old anterior infarct.) ST-T: Normal QT: Normal Comparison: No Change (No change from EKG dated 10/09/2019 at 1249) Course - Vital Signs Last Recorded V/S: Last Vital Signs Temp 36.6 C 04/18/20 00:01 Pulse 133 H 04/18/20 01:09 Resp 20 04/18/20 01:09 BP 150/98 H 04/18/20 01:09 Pulse Ox 95 04/18/20 01:09 - Orders/Labs/Meds Orders: Active Orders 24 hr Category Date Time Status EKG Documentation Completion [RC] ASDIRECTED Care 04/17/20 23:42 Active Chest 1V Frontal [CR] Stat Exams 04/18/20 00:52 Taken Sodium Chloride 0.9% [Saline Flush] Med 04/17/20 23:41 Active 10 ml FLUSH ASDIRECTED PRN Saline Lock Insert [OM.PC] Routine Oth 04/17/20 23:41 Ordered EKG 12 Lead [EK] Routine Ther 04/17/20 23:41 Ordered Medication Orders Sodium Chloride (Saline Flush) 10 ml FLUSH ASDIRECTED PRN PRN Reason: Keep Vein Open Labs: Laboratory Tests 04/17/20 04/17/20 04/17/20 Range/Units 00:06 23:41 23:58 WBC 7.7 (4.5-11.0) K/uL RBC 4.12 (3.30-5.50) M/uL Hgb 12.2 (12.0-15.0) g/dL Hct 38.6 (36.0-48.0) % MCV 94 (80-98) fL MCH 30 (27-31) pg MCHC 32 (32-36) % Plt Count 188 (150-400) K/uL Neut % (Auto) 76 H (36-66) % Lymph % (Auto) 12 L (24-44) % [place] % (Auto) 12 H (2-6) % Eos % (Auto) 0 L (2-4) % Baso % (Auto) 0 (0-1) % Sodium 140 (140-148) mmol/L Potassium 5.2 (3.6-5.2) mmol/L Chloride 103 (100-108) mmol/L Carbon Dioxide 25 (21-32) mmol/L Anion Gap 12.3 (5.0-14.0) mmol/L BUN 19 H (7-18) mg/dL Creatinine 1.1 H (0.6-1.0) mg/dL Est Cr Clr Drug Dosing 27.35 mL/min Estimated GFR (MDRD) 47 L (>60) Glucose 146 H (74-106) mg/dL Calcium 9.6 (8.5-10.1) mg/dL Total Bilirubin 1.8 H D (0.2-1.0) mg/dL AST 27 D (15-37) U/L ALT 18 (12-78) U/L Alkaline Phosphatase 86 (46-116) U/L Creatine Kinase (26-192) U/L Troponin I 0.077 H* (0.000-0.056) ng/mL NT-Pro-B Natriuret Pep 36980 H (5-450) pg/mL Total Protein 6.6 (6.4-8.2) g/dL Albumin 3.7 (3.4-5.0) g/dL Globulin 2.9 (2.3-3.5) g/dL Albumin/Globulin Ratio 1.3 (1.2-2.2) Urine Color (YELLOW) Urine Appearance (CLEAR) Urine pH (5.0-8.0) Ur Specific [place] (1.008-1.030) Urine Protein (NEGATIVE) mg/dL Urine Glucose (UA) (NEGATIVE) mg/dL Urine Ketones (NEGATIVE) mg/dL Urine Occult Blood (NEGATIVE) Urine Nitrite (NEGATIVE) Urine Bilirubin (NEGATIVE) Urine Urobilinogen (0.2-1.0) EU/dL Ur Leukocyte Esterase (NEGATIVE) Urine RBC (0-5) Urine WBC (0-5) Ur Epithelial Cells Amorphous Sediment Urine Bacteria Urine Mucus Influenza Type A RNA Negflua (NEGATIVE) RSV RNA (INAAT) Negative (NEGATIVE) Influenza Type B RNA Negflub (NEGATIVE) SARS-CoV-2 RNA (DOUG) Negative (NEGATIVE) 04/18/20 04/18/20 Range/Units 00:04 00:13 WBC (4.5-11.0) K/uL RBC (3.30-5.50) M/uL Hgb (12.0-15.0) g/dL Hct (36.0-48.0) % MCV (80-98) fL MCH (27-31) pg MCHC (32-36) % Plt Count (150-400) K/uL Neut % (Auto) (36-66) % Lymph % (Auto) (24-44) % [place] % (Auto) (2-6) % Eos % (Auto) (2-4) % Baso % (Auto) (0-1) % Sodium (140-148) mmol/L Potassium (3.6-5.2) mmol/L Chloride (100-108) mmol/L Carbon Dioxide (21-32) mmol/L Anion Gap (5.0-14.0) mmol/L BUN (7-18) mg/dL Creatinine (0.6-1.0) mg/dL Est Cr Clr Drug Dosing mL/min Estimated GFR (MDRD) (>60) Glucose (74-106) mg/dL Calcium (8.5-10.1) mg/dL Total Bilirubin (0.2-1.0) mg/dL AST (15-37) U/L ALT (12-78) U/L Alkaline Phosphatase (46-116) U/L Creatine Kinase 374 H (26-192) U/L Troponin I (0.000-0.056) ng/mL NT-Pro-B Natriuret Pep (5-450) pg/mL Total Protein (6.4-8.2) g/dL Albumin (3.4-5.0) g/dL Globulin (2.3-3.5) g/dL Albumin/Globulin Ratio (1.2-2.2) Urine Color Yellow (YELLOW) Urine Appearance Slightly cloudy A (CLEAR) Urine pH 5.0 (5.0-8.0) Ur Specific [place] 1.025 (1.008-1.030) Urine Protein 100 H (NEGATIVE) mg/dL Urine Glucose (UA) Negative (NEGATIVE) mg/dL Urine Ketones 15 H (NEGATIVE) mg/dL Urine Occult Blood Small H (NEGATIVE) Urine Nitrite Negative (NEGATIVE) Urine Bilirubin Small H (NEGATIVE) Urine Urobilinogen 1.0 (0.2-1.0) EU/dL Ur Leukocyte Esterase Negative (NEGATIVE) Urine RBC 0-5 (0-5) Urine WBC 0-5 (0-5) Ur Epithelial Cells Few Amorphous Sediment Moderate Urine Bacteria Moderate Urine Mucus Not seen Influenza Type A RNA (NEGATIVE) RSV RNA (INAAT) (NEGATIVE) Influenza Type B RNA (NEGATIVE) SARS-CoV-2 RNA (DOUG) (NEGATIVE) Meds: Medications Generic Name Dose Route Start Last Admin Trade Name Freq PRN Reason Stop Dose Admin Sodium Chloride 10 ml 04/17/20 23:41 Saline Flush FLUSH ASDIRECTED PRN Keep Vein Open Discontinued Medications Generic Name Dose Route Start Last Admin Trade Name Fret[place]ka PRN Reason Stop Dose Admin Furosemide 40 mg 04/18/20 00:52 04/18/20 01:00 Lasix IVPUSH 04/18/20 00:53 40 mg ONETIME ONE Administration Metoprolol Succinate 50 mg 04/18/20 00:47 04/18/20 00:59 Toprol Xl PO 04/18/20 00:48 50 mg ONETIME ONE Administration - Radiology Interpretation Free Text/Narrative:: Chest one-view portable: Cardiomegaly. Pulmonary edema. - Re-Assessments/Exams Free Text/Narrative Re-Assessment/Exam: 04/18/20 00:40 I reviewed the patient's labs and EKG. She is in atrial fibrillation with a rapid ventricular response at 136 bpm. She does have LVH by voltage criteria. Her BNP is significantly elevated at 22,166. Her troponin is elevated at 0.077 but her creatinine is also elevated at 1.1. This is likely elevation due to congestive heart failure. The patient's total creatinine is elevated at 347 likely due to her prolonged sitting on the toilet. 04/18/20 00:42 urinalysis was obtained but is negative for any urinary tract infection. At this time, it appears that she is in congestive heart failure and likely has bilateral lower extremity edema secondary to lymphatic compression from prolonged sitting on the toilet. She will likely need to come into the hospital to be diuresed. She was recently started back on Lasix, however, she is not a reliable historian so are unclear as to what dose she is actually on. I will discussed the case with Dr. Villasenor, the hospitalist substation designer [facility] to arrange for her admission. 04/18/20 00:48 it is unclear whether or not the patient is actually received any of her medications recently. We will give her metoprolol 50 mg p.o. to try to rate control her atrial fibrillation. The patient's blood pressure is 141/90 which should tolerate the additional 50 mg of metoprolol. Does appear that she is supposed be on metoprolol XL 200 mg a day as well as her Lanoxin 125 mg daily. 04/18/20 01:21 chest one-view portable shows cardiomegaly with pulmonary edema. There is no acute infiltrates. 04/18/20 01:22 the patient was given Lasix 40 mg IV push to attempt to start to diurese her fluid overload. Departure - Departure Time of Disposition: 00:53 Disposition: Admitted As Inpatient 66 Clinical Impression: CHF (congestive heart failure) Qualifiers: Heart failure type: combined systolic and diastolic Heart failure chronicity: acute on chronic Qualified Code(s): I50.43 - Acute on chronic combined systolic (congestive) and diastolic (congestive) heart failure CKD (chronic kidney disease) stage 3, GFR 30-59 ml/min Qualifiers: Chronic kidney disease stage 3 subtype: stage 3b (GFR 30-44) Qualified Code(s): N18.32 - Chronic kidney disease, stage 3b Atrial fibrillation Qualifiers: Atrial fibrillation type: longstanding persistent Qualified Code(s): I48.11 - Longstanding persistent atrial fibrillation - Discharge Information Referrals: PCP,None [Primary Care Provider] - Forms: ED Department Discharge Sepsis Event Note (ED) - Focused Exam Vital Signs: Vital Signs Temp Pulse Pulse Resp BP BP Pulse Ox 04/18/20 01:09 133 H 20 150/98 H 95 04/18/20 00:59 126 H 141/90 H 04/18/20 00:45 132 H 22 H 141/90 H 96 04/18/20 00:05 128 H 18 146/86 H 96 04/18/20 00:01 36.6 C 120 H 22 H 146/89 H 97 - Problem List & Annotations (1) CHF (congestive heart failure) SNOMED Code(s): 34587681 Code(s): I50.9 - HEART FAILURE, UNSPECIFIED Status: Acute Priority: High Current Visit: Yes Qualifiers: Heart failure type: combined systolic and diastolic Heart failure chronicity: acute on chronic Qualified Code(s): I50.43 - Acute on chronic combined systolic (congestive) and diastolic (congestive) heart failure (2) CKD (chronic kidney disease) stage 3, GFR 30-59 ml/min SNOMED Code(s): 693159145 Code(s): N18.3 - CHRONIC KIDNEY DISEASE, STAGE 3 (MODERATE) * DO NOT USE * Status: Chronic Priority: High Current Visit: Yes Qualifiers: Chronic kidney disease stage 3 subtype: stage 3b (GFR 30-44) Qualified Code(s): N18.32 - Chronic kidney disease, stage 3b (3) Atrial fibrillation SNOMED Code(s): 74941760 Code(s): I48.91 - UNSPECIFIED ATRIAL FIBRILLATION Status: Chronic Priority: High Current Visit: Yes Qualifiers: Atrial fibrillation type: longstanding persistent Qualified Code(s): I48.11 - Longstanding persistent atrial fibrillation - Problem List Review Problem List Initiated/Reviewed/Updated: Yes - My Orders Last 24 Hours: My Active Orders 04/17/20 23:41 Sodium Chloride 0.9% [Saline Flush] 10 ml FLUSH ASDIRECTED PRN Saline Lock Insert [OM.PC] Routine EKG 12 Lead [EK] Routine 04/17/20 23:42 EKG Documentation Completion [RC] ASDIRECTED 04/18/20 00:52 Chest 1V Frontal [CR] Stat - Assessment/Plan Last 24 Hours: My Active Orders 04/17/20 23:41 Sodium Chloride 0.9% [Saline Flush] 10 ml FLUSH ASDIRECTED PRN Saline Lock Insert [OM.PC] Routine EKG 12 Lead [EK] Routine 04/17/20 23:42 EKG Documentation Completion [RC] ASDIRECTED 04/18/20 00:52 Chest 1V Frontal [CR] Stat
[2020-04-18] MEDS ORDERED: Metoprolol Succinate 50 MG Tab.ER PO ONE (00:47)
[2020-04-18] MEDS ORDERED: Furosemide 40 MG/4 ML VIAL IVPUSH ONE ×3 (00:52→18:00)
[2020-04-18 01:17] LABS: CORONAVIRUS COVID-19 NAA NEGATIVE (NEGATIVE)
[2020-04-18] MEDS ORDERED: Diltiazem 25 MG/5 ML SDV IVPUSH ONE (01:59)
[2020-04-18] MEDS ORDERED: Diltiazem 100 MG in Sodium Chloride 0.9% 100 ML IV SCH (02:00)
--- NOTE | 2020-04-18 02:16 | PCM.HP.2 ---
H&P History of Present Illness - General Date of Service: 04/18/20 Admit Problem/Dx: Admission Diagnosis/Problem Admission Diagnosis/Problem CHF, Congestive heart failure Source of Information: Patient, Provider History Limitations: Reports: No Limitations - History of Present Illness Initial Comments - Free Text/Narative: CC: My son called and had me brought in HPI: Giana presented to the emergency room tonight after her son became concerned about her lower extremity swelling and summoned an ambulance. She reports a steady increase in swelling over the past couple of weeks to the point that her legs are now swollen above her knee. They have never been swollen this badly before. She does have some discomfort in her feet when she stands but is comfortable at rest. She says that she feels mildly short of breath but is obviously working hard to breathe. She does not feel any palpitations. She reports an episode of chest pain about 2 weeks ago that was very short-lived and she does not really recall the details anymore but does remember having pain at some point. She does not report any fevers or chills. She has not been coughing. No complaints about abdominal pain or nausea. No change in bowel or bladder habits. She does report that she has not been taking her medications regularly. Her weight has been stable. Appetite has been good. Work-up in the emergency room revealed evidence for congestive heart failure as well as rapid atrial fibrillation. She has received furosemide, a Jha catheter is being placed and she is going to be started on a diltiazem infusion. She will be admitted to the intensive care unit for management of both decompensated heart failure and rapid atrial fibrillation. - Related Data Allergies/Adverse Reactions: Allergies Allergy/AdvReac Type Severity Reaction Status Date / Time Penicillins Allergy Intermediate Respiratory Verified 04/18/20 00:17 Distress erythromycin base Allergy Rash Verified 04/18/20 00:56 oxybutynin Allergy Nausea Verified 04/18/20 00:56 Sulfa (Sulfonamide Allergy Rash Verified 04/18/20 00:17 Antibiotics) azithromycin AdvReac Vomiting Verified 04/18/20 00:17 codeine AdvReac Nausea and Verified 04/18/20 00:17 Vomiting diazepam [From Valium] AdvReac Disorientat Verified 04/18/20 00:17 ion Home Medications: Home Meds metFORMIN [Glucophage] 1,000 mg PO BIDM 10/06/13 [History] Allopurinol [Zyloprim] 100 mg PO DAILY 10/15/15 [History] Lisinopril 40 mg PO DAILY 08/08/17 [History] atorvaSTATin [Lipitor] 40 mg PO DAILY 08/08/17 [History] Apixaban [Eliquis] 5 mg PO BID 09/04/18 [History] Aspirin [Stanly Aspirin EC] 81 mg PO DAILY 10/09/19 [History] Gabapentin [Neurontin] 300 mg PO TID 10/09/19 [History] Isosorbide Mononitrate [Isosorbide Mononitrate ER] 30 mg PO DAILY 10/09/19 [History] Metoprolol Succinate 200 mg PO DAILY 10/09/19 [History] glipiZIDE [Glucotrol] 10 mg PO DAILY 10/09/19 [History] Magnesium 250 mg PO DAILY 10/21/19 [History] Acetaminophen/Caffeine [Excedrin Tension Headache] 1 tab PO ASDIRECTED PRN 10/23/19 [History] allopurinoL [Zyloprim] 100 mg PO DAILY 10/23/19 [History] Cholecalciferol (Vitamin D3) [Vitamin D3] 2,000 unit PO DAILY 04/18/20 [History] Digoxin [Digox] 125 mcg PO DAILY 04/18/20 [History] Furosemide 20 mg PO DAILY 04/18/20 [History] Omeprazole 20 mg PO DAILY 04/18/20 [History] Potassium Chloride [Klor-Con M20] 20 meq PO DAILY 04/18/20 [History] Past Medical History HEENT History: Reports: Cataract, Glaucoma, Impaired Vision Cardiovascular History: Reports: Afib, High Cholesterol, Hypertension, [place] Respiratory History: Reports: Asthma, COPD Gastrointestinal History: Reports: GERD Genitourinary History: Reports: Chronic Renal Insuffiency SDE History: Reports: Musculoskeletal History: Reports: Osteoarthritis, Other (See Below) Other Musculoskeletal History: right hip pain Neurological History: Reports: CVA, Migraines Psychiatric History: Reports: None Endocrine/Metabolic History: Reports: Diabetes, Type II Hematologic History: Reports: None Oncologic (Cancer) History: Reports: None Dermatologic History: Reports: None - Infectious Disease History Infectious Disease History: Reports: Chicken Pox, Measles, Mumps - Past Surgical History Head Surgeries/Procedures: Reports: None HEENT Surgical History: Reports: Cataract Surgery Cardiovascular Surgical History: Reports: Other (See Below) Other Cardiovascular Surgeries/Procedures: HEART CATHETER Respiratory Surgical History: Reports: None GI Surgical History: Reports: Appendectomy Female Surgical History: Reports: Endometrial Ablation, Hysterectomy Endocrine Surgical History: Reports: None Neurological Surgical History: Reports: None Musculoskeletal Surgical History: Reports: None Dermatological Surgical History: Reports: None Social & Family History - Family History Family Medical History: No Pertinent Family History - Tobacco Use Tobacco Use Status *Q: Never Tobacco User - Caffeine Use Caffeine Use: Reports: Coffee, Soda, Tea - Alcohol Use Alcohol Use History: No - Recreational Drug Use Recreational Drug Use: No H&P Review of Systems - Review of Systems: Review Of Systems: See Below Free Text/Narrative: A complete 12 point review of systems was obtained. Pertinent positives and negatives are noted in the history of present illness. All other systems were reviewed and were negative except as noted. Exam - Exam Exam: See Below - Vital Signs Vital Signs: Last Vital Signs Temp 36.6 C 04/18/20 00:01 Pulse 133 H 04/18/20 01:09 Resp 20 04/18/20 01:09 BP 150/98 H 04/18/20 01:09 Pulse Ox 95 04/18/20 01:09 Weight: 65.771 kg - Exam Quality Assessment: No: Supplemental Oxygen General: Alert, Oriented, Cooperative. No: Mild Distress HEENT: Conjunctiva Clear. No: Mucosa Moist & [place] (dry), Scleral Icterus Neck: Supple, Trachea Midline, JVD Lungs: Normal Respiratory Effort, Crackles (both bases L>R) Cardiovascular: Irregular Rhythm, Tachycardia, Systolic Murmur, Gallop/S3 GI/Abdominal Exam: Normal Bowel Sounds, Soft, Non-Tender, No Distention Back Exam: Normal Inspection, Full Range of Motion Extremities: Pedal Edema (pitting edema to above the knee bilaterally L>R), Increased Warmth (both knees ) Skin: Warm, Dry, Rash (intertrigo in skin folds under pannus ) Neuro Extensive - Mental Status: Alert, Nl Response to Commands Neuro Extensive - Motor, Sensory, Reflexes: No: Dysarthria, Abnormal Motor, Tremor Psychiatric: Alert, Normal Affect - Patient Data Lab Results Last 24 hrs: Laboratory Results - last 24 hr 01/31/21 01/31/21 01/31/21 Range/Units 00:06 23:41 23:58 WBC 7.7 (4.5-11.0) K/uL RBC 4.12 (3.30-5.50) M/uL Hgb 12.2 (12.0-15.0) g/dL Hct 38.6 (36.0-48.0) % MCV 94 (80-98) fL MCH 30 (27-31) pg MCHC 32 (32-36) % Plt Count 188 (150-400) K/uL Neut % (Auto) 76 H (36-66) % Lymph % (Auto) 12 L (24-44) % [place] % (Auto) 12 H (2-6) % Eos % (Auto) 0 L (2-4) % Baso % (Auto) 0 (0-1) % Sodium 140 (140-148) mmol/L Potassium 5.2 (3.6-5.2) mmol/L Chloride 103 (100-108) mmol/L Carbon Dioxide 25 (21-32) mmol/L Anion Gap 12.3 (5.0-14.0) mmol/L BUN 19 H (7-18) mg/dL Creatinine 1.1 H (0.6-1.0) mg/dL Est Cr Clr Drug Dosing 27.35 mL/min Estimated GFR (MDRD) 47 L (>60) Glucose 146 H (74-106) mg/dL Calcium 9.6 (8.5-10.1) mg/dL Total Bilirubin 1.8 H D (0.2-1.0) mg/dL AST 27 D (15-37) U/L ALT 18 (12-78) U/L Alkaline Phosphatase 86 (46-116) U/L Creatine Kinase (26-192) U/L Troponin I 0.077 H* (0.000-0.056) ng/mL NT-Pro-B Natriuret Pep 33904 H (5-450) pg/mL Total Protein 6.6 (6.4-8.2) g/dL Albumin 3.7 (3.4-5.0) g/dL Globulin 2.9 (2.3-3.5) g/dL Albumin/Globulin Ratio 1.3 (1.2-2.2) Urine Color (YELLOW) Urine Appearance (CLEAR) Urine pH (5.0-8.0) Ur Specific [place] (1.008-1.030) Urine Protein (NEGATIVE) mg/dL Urine Glucose (UA) (NEGATIVE) mg/dL Urine Ketones (NEGATIVE) mg/dL Urine Occult Blood (NEGATIVE) Urine Nitrite (NEGATIVE) Urine Bilirubin (NEGATIVE) Urine Urobilinogen (0.2-1.0) EU/dL Ur Leukocyte Esterase (NEGATIVE) Urine RBC (0-5) Urine WBC (0-5) Ur Epithelial Cells Amorphous Sediment Urine Bacteria Urine Mucus Influenza Type A RNA Negflua (NEGATIVE) RSV RNA (INAAT) Negative (NEGATIVE) Influenza Type B RNA Negflub (NEGATIVE) SARS-CoV-2 RNA (DOUG) Negative (NEGATIVE) 04/18/20 04/18/20 Range/Units 00:04 00:13 WBC (4.5-11.0) K/uL RBC (3.30-5.50) M/uL Hgb (12.0-15.0) g/dL Hct (36.0-48.0) % MCV (80-98) fL MCH (27-31) pg MCHC (32-36) % Plt Count (150-400) K/uL Neut % (Auto) (36-66) % Lymph % (Auto) (24-44) % [place] % (Auto) (2-6) % Eos % (Auto) (2-4) % Baso % (Auto) (0-1) % Sodium (140-148) mmol/L Potassium (3.6-5.2) mmol/L Chloride (100-108) mmol/L Carbon Dioxide (21-32) mmol/L Anion Gap (5.0-14.0) mmol/L BUN (7-18) mg/dL Creatinine (0.6-1.0) mg/dL Est Cr Clr Drug Dosing mL/min Estimated GFR (MDRD) (>60) Glucose (74-106) mg/dL Calcium (8.5-10.1) mg/dL Total Bilirubin (0.2-1.0) mg/dL AST (15-37) U/L ALT (12-78) U/L Alkaline Phosphatase (46-116) U/L Creatine Kinase 374 H (26-192) U/L Troponin I (0.000-0.056) ng/mL NT-Pro-B Natriuret Pep (5-450) pg/mL Total Protein (6.4-8.2) g/dL Albumin (3.4-5.0) g/dL Globulin (2.3-3.5) g/dL Albumin/Globulin Ratio (1.2-2.2) Urine Color Yellow (YELLOW) Urine Appearance Slightly cloudy A (CLEAR) Urine pH 5.0 (5.0-8.0) Ur Specific [place] 1.025 (1.008-1.030) Urine Protein 100 H (NEGATIVE) mg/dL Urine Glucose (UA) Negative (NEGATIVE) mg/dL Urine Ketones 15 H (NEGATIVE) mg/dL Urine Occult Blood Small H (NEGATIVE) Urine Nitrite Negative (NEGATIVE) Urine Bilirubin Small H (NEGATIVE) Urine Urobilinogen 1.0 (0.2-1.0) EU/dL Ur Leukocyte Esterase Negative (NEGATIVE) Urine RBC 0-5 (0-5) Urine WBC 0-5 (0-5) Ur Epithelial Cells Few Amorphous Sediment Moderate Urine Bacteria Moderate Urine Mucus Not seen Influenza Type A RNA (NEGATIVE) RSV RNA (INAAT) (NEGATIVE) Influenza Type B RNA (NEGATIVE) SARS-CoV-2 RNA (DOUG) (NEGATIVE) Result Diagrams: 04/17/20 23:41 04/17/20 23:58 Imaging Impressions Last 24 hrs: CXR-image personally reviewed-there is cephalization of the vessels, small bilateral effusions, cardiomegally. No obvious infiltrate or mass. #1 Interpretation EKG Date: 04/18/20 Rhythm: A-Fib Rate (Beats/Min): 139 Harris: LAD-Left Harris Deviation (LAFB) P-Wave: Absent QRS: Normal ST-T: Depressed (V5-V6) QT: Normal Comparison: No Change EKG Interpretation Comments: EKG image personally reviewed Sepsis Event Note - Evaluation Sepsis Screening Result: No Definite Risk - Focused Exam Vital Signs: Vital Signs Temp Pulse Pulse Resp BP BP Pulse Ox 04/18/20 01:09 133 H 20 150/98 H 95 04/18/20 00:59 126 H 141/90 H 04/18/20 00:45 132 H 22 H 141/90 H 96 04/18/20 00:05 128 H 18 146/86 H 96 04/18/20 00:01 36.6 C 120 H 22 H 146/89 H 97 *Q Meaningful Use (ADM) - VTE Risk Assess *Q Each Risk Factor Represents 1 Point: Swollen Legs, Current, Obesity ( BMI > 25 kg/m2), Congestive heart failure (CHF) Total Score 1 Point Risk Factors: 3 Each Risk Factor Represents 2 Points: None Total Score 2 Point Risk Factors: 0 Each Risk Factor Represents 3 Points: Age 75 Years or Greater Total Score 3 Point Risk Factors: 3 Each Risk Factor Represents 5 Points: None Total Score 5 Point Risk Factors: 0 Venous Thromboembolism Risk Factor Score *Q: 6 - Problem List (1) Acute on chronic systolic and diastolic heart failure, NYHA class 3 SNOMED Code(s): 450741880559253, 992760893949156 ICD Code: I50.43 - ACUTE ON CHRONIC COMBINED SYSTOLIC AND DIASTOLIC HRT FAIL Status: Acute Current Visit: Yes (2) Atrial fibrillation with rapid ventricular response SNOMED Code(s): 070202291243546 ICD Code: I48.91 - UNSPECIFIED ATRIAL FIBRILLATION Status: Acute Current Visit: Yes (3) Diabetes mellitus type II, controlled SNOMED Code(s): 85957058, 586744033 ICD Code: E11.9 - TYPE 2 DIABETES MELLITUS WITHOUT COMPLICATIONS Status: Chronic Current Visit: Yes Qualifiers: Diabetes mellitus intermediate frame tender insulin use: without intermediate frame tender use Diabetes mellitus complication status: with unspecified complications Qualified Code(s): E11.8 - Type 2 diabetes mellitus with unspecified complications (4) CKD (chronic kidney disease) stage 3, GFR 30-59 ml/min SNOMED Code(s): 497818108 ICD Code: N18.3 - CHRONIC KIDNEY DISEASE, STAGE 3 (MODERATE) * DO NOT USE * Status: Chronic Priority: High Current Visit: Yes Qualifiers: Chronic kidney disease stage 3 subtype: stage 3b (GFR 30-44) Qualified Code(s): N18.32 - Chronic kidney disease, stage 3b Problem List Initiated/Reviewed/Updated: Yes Orders Last 24hrs: Active Orders 24 hr Category Date Time Status Patient Status Manage Transfer [TRANSFER] Routine ADT 04/18/20 02:02 Ordered EKG Documentation Completion [RC] ASDIRECTED Care 04/17/20 23:42 Active Insert Jha Catheter [Insert Urinary Catheter] [OM.PC] Care 04/18/20 02:00 Ordered Q24H Urinary Catheter Assessment [RC] ASDIRECTED Care 04/18/20 01:59 Active Chest 1V Frontal [CR] Stat Exams 04/18/20 00:52 Taken Diltiazem [Cardizem] 100 mg Med 04/18/20 02:00 Active Sodium Chloride 0.9% [Normal Saline] 100 ml IV TITRATE Sodium Chloride 0.9% [Saline Flush] Med 04/17/20 23:41 Active 10 ml FLUSH ASDIRECTED PRN Saline Lock Insert [OM.PC] Routine Oth 04/17/20 23:41 Ordered Resuscitation Status Routine Resus Stat 04/18/20 02:05 Ordered EKG 12 Lead [EK] Routine Ther 04/17/20 23:41 Ordered Medication Orders Diltiazem HCl 100 mg/ Sodium (Chloride) 100 mls @ 5 mls/hr IV TITRATE ARJUN; Protocol Sodium Chloride (Saline Flush) 10 ml FLUSH ASDIRECTED PRN PRN Reason: Keep Vein Open Assessment/Plan Comment:: ASSESSMENT AND PLAN - Acute decompensated systolic congestive heart failure-known severe MR and most recent ejection fraction was 30 to 35%. She has not been compliant with medications. She does not report any dietary indiscretions but I suspect this is contributing as well. She has tachypnea but is not hypoxic at this time. She has received IV furosemide in the emergency room. -Place Jha catheter for strict intake and output monitoring -Rate control of atrial fibrillation as discussed below -Hold DAVID inhibitor with lower blood pressures -Reassess volume status later in the day, patient will likely need additional diuretics -CARLIE stockings to help with edema Atrial fibrillation with rapid ventricular response-chronically anticoagulated w ith apixaban. No symptoms such as palpitations. Unclear if the rapid A. fib came first or if it is a result of the heart failure. She has slowed small amount with oral metoprolol but would benefit from a diltiazem infusion for ease of titration during her diuresis. Troponin is mildly elevated but I suspect this is demand ischemia in the setting of heart failure and rapid atrial fibrillation. -Start diltiazem infusion -Continue metoprolol and digoxin -Cardiac monitoring -Continue apixaban Type 2 diabetes mellitus-unsure of control at this time. She is on 2 oral medications which will be on hold during her diuresis with her borderline renal function. She will be managed with sliding scale insulin. -Hold Metformin and glipizide -Low-dose sliding scale insulin Stage IIIb chronic kidney disease-creatinine is at baseline at this point but will need close monitoring in the setting of acute diuresis. Maintenance issues - - DVT prophylaxis -apixaban - GI prophylaxis -PPI - Nutrition -low-sodium - Jha catheter -will be placed for strict intake and output monitoring CODE STATUS -full code for now, patient would like to talk to her son about this more Admission justification -this patient will be admitted for inpatient services and is medically appropriate meeting medical necessity for inpatient admission as outlined in my documentation. I reasonably expect the patient will require inpatient services that span a period time over 2 midnights. I reasonably expect this patient to be discharged or transferred within 96 hours after admission to the [facility]. Disposition -I would anticipate discharge home versus possibly subacute rehab Primary care physician -DEISI Jennings M.D. - Mortality Measure Prognosis:: Good
[2020-04-18] MEDS ORDERED: Albuterol 0.083% 2.5 MG/3 ML Neb Soln NEB PRN (02:51)
[2020-04-18] MEDS ORDERED: LORazepam 2 MG/ML SDV IVPUSH PRN (02:51)
[2020-04-18] MEDS ORDERED: Acetaminophen 325 MG Tab PO PRN (02:51)
[2020-04-18] MEDS ORDERED: Magnesium Hydroxide 400 MG/5 ML Susp 30 ML Cup PO PRN (02:51)
[2020-04-18] MEDS ORDERED: Ondansetron 4 MG/2 ML SDV IV PRN (02:51)
[2020-04-18] MEDS ORDERED: Ondansetron 4 MG Tab.DIS PO PRN (02:51)
[2020-04-18] MEDS ORDERED: Sodium Chloride 0.9% 500 ML IV ONE (03:09)
[2020-04-18] MEDS: Insulin Lispro 100 Unit/ML 3 ML KwikPen SUBCUT SCH ×4 (07:24→20:32)
[2020-04-18] MEDS ORDERED: Nystatin Topical Powder 15 GM Bottle TOP SCH (09:00)
[2020-04-18] MEDS ORDERED: Apixaban 2.5 MG Tab PO SCH (09:00)
--- NOTE | 2020-04-18 09:21 | CR ---
CHEST: Portable 04/18/2020 at 1:02 AM CLINICAL HISTORY:Atrial fibrillation, CHF COMPARISON:September 2019 FINDINGS: Heart is enlarged. Pulmonary vascularity is cephalized. There is interstitial edema. There is a small right effusion. There are atherosclerotic changes in the aorta. IMPRESSION: Cardiomegaly with CHF Small right effusion
[2020-04-18] MEDS: Metoprolol Succinate 50 MG Tab.ER PO SCH (09:44)
[2020-04-18] MEDS: Apixaban 5 MG Tab PO SCH ×2 (09:44→20:36)
[2020-04-18] MEDS: Allopurinol 100 MG Tab PO SCH (09:44)
[2020-04-18] MEDS: atorvaSTATin 20 MG Tab PO SCH (09:44)
[2020-04-18] MEDS: Pantoprazole 40 MG Tab.CR PO SCH (09:44)
[2020-04-18] MEDS: Magnesium Oxide 400 MG Tab PO SCH ×2 (09:45→20:36)
[2020-04-18] MEDS: Nystatin Topical Powder 15 GM Bottle TOP SCH ×3 (09:45→20:37)
[2020-04-18] MEDS: Aspirin 81 MG Tab.EC PO SCH (09:45)
[2020-04-18] MEDS: Magnesium Sulfate/Water 2 GM/50 ML BAG IV SCH ×2 (09:46→16:06)
[2020-04-18] MEDS: Diltiazem IR 30 MG Tab PO SCH ×3 (11:09→21:59)
[2020-04-18 12:27] LABS: HEMOGLOBIN A1C 7.2 % (4.5-6.2)
--- NOTE | 2020-04-18 12:40 | PCM.PN ---
- General Info Date of Service: 04/18/20 Subjective Update: Ms. Arce was admitted through the emergency department early this morning with congestive heart failure exacerbation and atrial fibrillation with rapid ventricular response. She had received furosemide in the emergency department with good diuresis thus far. She was started on IV diltiazem for rate control of the atrial fibrillation which has resulted in good control. She is confused and unable to provide a meaningful history concerning recent symptoms or review of systems. - Patient Data Vitals - Most Recent: Last Vital Signs Temp 97.6 F 04/18/20 07:00 Pulse 68 04/18/20 12:00 Resp 27 H 04/18/20 12:00 BP 99/54 L 04/18/20 12:00 Pulse Ox 95 04/18/20 12:00 Weight - Most Recent: 149 lb 12.795 oz I&O - Last 24 Hours: Intake & Output 04/17/20 04/18/20 04/18/20 22:59 06:59 14:59 Intake Total 66 350 Output Total 1200 375 Balance -1134 -25 Lab Results Last 24 Hours: Laboratory Results - last 24 hr 04/17/20 04/17/20 04/17/20 Range/Units 00:06 23:41 23:58 WBC 7.7 (4.5-11.0) K/uL RBC 4.12 (3.30-5.50) M/uL Hgb 12.2 (12.0-15.0) g/dL Hct 38.6 (36.0-48.0) % MCV 94 (80-98) fL MCH 30 (27-31) pg MCHC 32 (32-36) % Plt Count 188 (150-400) K/uL Neut % (Auto) 76 H (36-66) % Lymph % (Auto) 12 L (24-44) % [place] % (Auto) 12 H (2-6) % Eos % (Auto) 0 L (2-4) % Baso % (Auto) 0 (0-1) % Sodium 140 (140-148) mmol/L Potassium 5.2 (3.6-5.2) mmol/L Chloride 103 (100-108) mmol/L Carbon Dioxide 25 (21-32) mmol/L Anion Gap 12.3 (5.0-14.0) mmol/L BUN 19 H (7-18) mg/dL Creatinine 1.1 H (0.6-1.0) mg/dL Est Cr Clr Drug Dosing 27.35 mL/min Estimated GFR (MDRD) 47 L (>60) Glucose 146 H (74-106) mg/dL Hemoglobin A1c (4.5-6.2) % Calcium 9.6 (8.5-10.1) mg/dL Magnesium (1.8-2.4) mg/dL Total Bilirubin 1.8 H D (0.2-1.0) mg/dL AST 27 D (15-37) U/L ALT 18 (12-78) U/L Alkaline Phosphatase 86 (46-116) U/L Creatine Kinase (26-192) U/L Troponin I 0.077 H* (0.000-0.056) ng/mL NT-Pro-B Natriuret Pep 37405 H (5-450) pg/mL Total Protein 6.6 (6.4-8.2) g/dL Albumin 3.7 (3.4-5.0) g/dL Globulin 2.9 (2.3-3.5) g/dL Albumin/Globulin Ratio 1.3 (1.2-2.2) Urine Color (YELLOW) Urine Appearance (CLEAR) Urine pH (5.0-8.0) Ur Specific [place] (1.008-1.030) Urine Protein (NEGATIVE) mg/dL Urine Glucose (UA) (NEGATIVE) mg/dL Urine Ketones (NEGATIVE) mg/dL Urine Occult Blood (NEGATIVE) Urine Nitrite (NEGATIVE) Urine Bilirubin (NEGATIVE) Urine Urobilinogen (0.2-1.0) EU/dL Ur Leukocyte Esterase (NEGATIVE) Urine RBC (0-5) Urine WBC (0-5) Ur Epithelial Cells Amorphous Sediment Urine Bacteria Urine Mucus Influenza Type A RNA Negflua (NEGATIVE) RSV RNA (INAAT) Negative (NEGATIVE) Influenza Type B RNA Negflub (NEGATIVE) SARS-CoV-2 RNA (DOUG) Negative (NEGATIVE) 04/18/20 04/18/20 04/18/20 Range/Units 00:04 00:13 04:15 WBC (4.5-11.0) K/uL RBC (3.30-5.50) M/uL Hgb (12.0-15.0) g/dL Hct (36.0-48.0) % MCV (80-98) fL MCH (27-31) pg MCHC (32-36) % Plt Count (150-400) K/uL Neut % (Auto) (36-66) % Lymph % (Auto) (24-44) % [place] % (Auto) (2-6) % Eos % (Auto) (2-4) % Baso % (Auto) (0-1) % Sodium 141 (140-148) mmol/L Potassium 4.3 (3.6-5.2) mmol/L Chloride 103 (100-108) mmol/L Carbon Dioxide 28 (21-32) mmol/L Anion Gap 10.3 (5.0-14.0) mmol/L BUN 19 H (7-18) mg/dL Creatinine 1.1 H (0.6-1.0) mg/dL Est Cr Clr Drug Dosing 27.35 mL/min Estimated GFR (MDRD) 47 L (>60) Glucose 181 H (74-106) mg/dL Hemoglobin A1c (4.5-6.2) % Calcium 9.5 (8.5-10.1) mg/dL Magnesium 1.4 L D (1.8-2.4) mg/dL Total Bilirubin (0.2-1.0) mg/dL AST (15-37) U/L ALT (12-78) U/L Alkaline Phosphatase (46-116) U/L Creatine Kinase 374 H (26-192) U/L Troponin I 0.076 H* (0.000-0.056) ng/mL NT-Pro-B Natriuret Pep (5-450) pg/mL Total Protein (6.4-8.2) g/dL Albumin (3.4-5.0) g/dL Globulin (2.3-3.5) g/dL Albumin/Globulin Ratio (1.2-2.2) Urine Color Yellow (YELLOW) Urine Appearance Slightly cloudy A (CLEAR) Urine pH 5.0 (5.0-8.0) Ur Specific [place] 1.025 (1.008-1.030) Urine Protein 100 H (NEGATIVE) mg/dL Urine Glucose (UA) Negative (NEGATIVE) mg/dL Urine Ketones 15 H (NEGATIVE) mg/dL Urine Occult Blood Small H (NEGATIVE) Urine Nitrite Negative (NEGATIVE) Urine Bilirubin Small H (NEGATIVE) Urine Urobilinogen 1.0 (0.2-1.0) EU/dL Ur Leukocyte Esterase Negative (NEGATIVE) Urine RBC 0-5 (0-5) Urine WBC 0-5 (0-5) Ur Epithelial Cells Few Amorphous Sediment Moderate Urine Bacteria Moderate Urine Mucus Not seen Influenza Type A RNA (NEGATIVE) RSV RNA (INAAT) (NEGATIVE) Influenza Type B RNA (NEGATIVE) SARS-CoV-2 RNA (DOUG) (NEGATIVE) 04/18/20 Range/Units 05:11 WBC (4.5-11.0) K/uL RBC (3.30-5.50) M/uL Hgb (12.0-15.0) g/dL Hct (36.0-48.0) % MCV (80-98) fL MCH (27-31) pg MCHC (32-36) % Plt Count (150-400) K/uL Neut % (Auto) (36-66) % Lymph % (Auto) (24-44) % [place] % (Auto) (2-6) % Eos % (Auto) (2-4) % Baso % (Auto) (0-1) % Sodium (140-148) mmol/L Potassium (3.6-5.2) mmol/L Chloride (100-108) mmol/L Carbon Dioxide (21-32) mmol/L Anion Gap (5.0-14.0) mmol/L BUN (7-18) mg/dL Creatinine (0.6-1.0) mg/dL Est Cr Clr Drug Dosing mL/min Estimated GFR (MDRD) (>60) Glucose (74-106) mg/dL Hemoglobin A1c 7.2 H (4.5-6.2) % Calcium (8.5-10.1) mg/dL Magnesium (1.8-2.4) mg/dL Total Bilirubin (0.2-1.0) mg/dL AST (15-37) U/L ALT (12-78) U/L Alkaline Phosphatase (46-116) U/L Creatine Kinase (26-192) U/L Troponin I (0.000-0.056) ng/mL NT-Pro-B Natriuret Pep (5-450) pg/mL Total Protein (6.4-8.2) g/dL Albumin (3.4-5.0) g/dL Globulin (2.3-3.5) g/dL Albumin/Globulin Ratio (1.2-2.2) Urine Color (YELLOW) Urine Appearance (CLEAR) Urine pH (5.0-8.0) Ur Specific [place] (1.008-1.030) Urine Protein (NEGATIVE) mg/dL Urine Glucose (UA) (NEGATIVE) mg/dL Urine Ketones (NEGATIVE) mg/dL Urine Occult Blood (NEGATIVE) Urine Nitrite (NEGATIVE) Urine Bilirubin (NEGATIVE) Urine Urobilinogen (0.2-1.0) EU/dL Ur Leukocyte Esterase (NEGATIVE) Urine RBC (0-5) Urine WBC (0-5) Ur Epithelial Cells Amorphous Sediment Urine Bacteria Urine Mucus Influenza Type A RNA (NEGATIVE) RSV RNA (INAAT) (NEGATIVE) Influenza Type B RNA (NEGATIVE) SARS-CoV-2 RNA (DOUG) (NEGATIVE) Med Orders - Current: Current Medications Acetaminophen (Tylenol) 650 mg PO Q4H PRN PRN Reason: Pain (Mild 1-3)/fever Albuterol (Proventil Neb Soln) 2.5 mg NEB Q4H PRN PRN Reason: Shortness Of Breath/wheezing Allopurinol (Zyloprim) 100 mg PO DAILY [facility] Last Admin: 04/18/20 09:44 Dose: 100 mg Documented by: Apixaban (Eliquis) 5 mg PO BID [facility] Last Admin: 04/18/20 09:44 Dose: 5 mg Documented by: Aspirin (Halfprin) 81 mg PO DAILY [facility] Last Admin: 04/18/20 09:45 Dose: 81 mg Documented by: Atorvastatin Calcium (Lipitor) 40 mg PO DAILY [facility] Last Admin: 04/18/20 09:44 Dose: 40 mg Documented by: Digoxin (Lanoxin) 125 mcg PO DAILY@1300 [facility] Diltiazem HCl (Cardizem) 30 mg PO Q6HR [facility] Last Admin: 04/18/20 11:09 Dose: 30 mg Documented by: Furosemide (Lasix) 40 mg IVPUSH NOW ONE Stop: 04/18/20 18:01 Magnesium Sulfate (Magnesium Sulfate In Water 2 Gm/50 Ml) 2 gm in 50 mls @ 25 mls/hr IV Q6H [facility] Stop: 04/18/20 17:59 Last Admin: 04/18/20 09:46 Dose: 25 mls/hr Documented by: Insulin Human Lispro (Humalog) 0 unit SUBCUT QIDACANDBED [facility]; Protocol Last Admin: 04/18/20 11:01 Dose: 2 units Documented by: Lorazepam (Ativan) 0.5 mg IVPUSH Q4H PRN PRN Reason: Nausea/Vomiting Magnesium Hydroxide (Milk Of Magnesia) 30 ml PO Q12H PRN PRN Reason: Constipation Magnesium Oxide (Magnesium Oxide) 400 mg PO BID [facility] Last Admin: 04/18/20 09:45 Dose: 400 mg Documented by: Melatonin (Melatonin) 9 mg PO BEDTIME [facility] Metoprolol Succinate (Toprol Xl) 200 mg PO DAILY [facility] Last Admin: 04/18/20 09:44 Dose: 200 mg Documented by: Nystatin (Nystop) 0 gm TOP TID [facility] Last Admin: 04/18/20 09:45 Dose: 1 applicful Documented by: Ondansetron HCl (Zofran) 4 mg IV Q6H PRN PRN Reason: Nausea/Vomiting Ondansetron HCl (Zofran Odt) 4 mg PO Q6H PRN PRN Reason: Nausea able to take PO Pantoprazole Sodium (Protonix) 40 mg PO ACBREAKFAST [facility] Last Admin: 04/18/20 09:44 Dose: 40 mg Documented by: Senna/Docusate Sodium (Senna Plus) 1 tab PO BID PRN PRN Reason: Constipation Sodium Chloride (Saline Flush) 10 ml FLUSH ASDIRECTED PRN PRN Reason: Keep Vein Open Discontinued Medications Apixaban (Eliquis) 5 mg PO BID [facility] Diltiazem HCl (Diltiazem) 10 mg IVPUSH ONETIME ONE Stop: 04/18/20 02:00 Last Admin: 04/18/20 02:10 Dose: 10 mg Documented by: Furosemide (Lasix) 40 mg IVPUSH ONETIME ONE Stop: 04/18/20 00:53 Last Admin: 04/18/20 01:00 Dose: 40 mg Documented by: Furosemide (Lasix) 40 mg IVPUSH NOW ONE Stop: 04/18/20 10:01 Last Admin: 04/18/20 09:46 Dose: 40 mg Documented by: Diltiazem HCl 100 mg/ Sodium (Chloride) 100 mls @ 5 mls/hr IV TITRATE [facility]; Protocol Last Titration: 04/18/20 12:14 Dose: 0 mg/hr, 0 mls/hr Documented by: Sodium Chloride (Normal Saline) 500 mls @ 15 mls/hr IV ASDIRECTED ONE Stop: 04/19/20 12:28 Last Admin: 04/18/20 03:00 Dose: 15 mls/hr Documented by: Metoprolol Succinate (Toprol Xl) 50 mg PO ONETIME ONE Stop: 04/18/20 00:48 Last Admin: 04/18/20 00:59 Dose: 50 mg Documented by: - Exam Quality Assessment: DVT Prophylaxis General: Alert, Cooperative, No Acute Distress. No: Oriented Lungs: Decreased Breath Sounds, Rales. No: Rhonchi, Wheezing Cardiovascular: Regular Rate, No Murmurs, Irregular Rhythm GI/Abdominal Exam: Soft, Non-Tender, No Organomegaly, No Distention Extremities: Non-Tender, Pedal Edema Sepsis Event Note - Evaluation Sepsis Screening Result: No Definite Risk - Focused Exam Vital Signs: Vital Signs Temp Pulse Pulse Pulse Resp BP BP 04/18/20 12:00 68 27 H 99/54 L 04/18/20 11:00 77 29 H 100/44 L 04/18/20 10:00 83 12 120/76 04/18/20 09:44 86 125/66 04/18/20 09:00 75 23 H 125/66 04/18/20 08:00 74 22 H 122/57 L 04/18/20 07:42 04/18/20 07:14 04/18/20 07:00 97.6 F 84 29 H 109/52 L 04/18/20 06:00 84 22 H 126/68 04/18/20 05:00 80 24 H 122/68 04/18/20 04:00 25 H 123/72 04/18/20 03:00 96.3 F L 87 25 H 130/77 04/18/20 02:51 04/18/20 02:45 90 20 127/79 04/18/20 01:45 130 H 26 H 141/93 H 04/18/20 01:09 133 H 20 150/98 H 04/18/20 00:59 126 H 141/90 H 04/18/20 00:45 132 H 22 H 141/90 H Pulse Ox Pulse Ox 04/18/20 12:00 95 04/18/20 11:00 95 04/18/20 10:00 91 L 04/18/20 09:44 04/18/20 09:00 97 04/18/20 08:00 98 04/18/20 07:42 98 04/18/20 07:14 97 04/18/20 07:00 97 04/18/20 06:00 98 04/18/20 05:00 98 04/18/20 04:00 99 04/18/20 03:00 93 L 04/18/20 02:51 92 L 04/18/20 02:45 95 04/18/20 01:45 96 04/18/20 01:09 95 04/18/20 00:59 04/18/20 00:45 96 - Problem List Review Problem List Initiated/Reviewed/Updated: Yes - My Orders Last 24 Hours: My Active Orders 04/18/20 09:00 Magnesium Oxide 400 mg PO BID 04/18/20 10:00 Magnesium Sulfate/Water [Magnesium Sulfate in Water 2 GM/50 ML] 2 gm in 50 ml IV Q6H 04/18/20 11:00 Diltiazem IR [Cardizem] 30 mg PO Q6HR 04/18/20 11:11 Convert IV to Saline Lock [OM.PC] Routine 04/18/20 18:00 Furosemide [Lasix] 40 mg IVPUSH NOW ONE 04/19/20 05:00 BASIC METABOLIC PANEL,BMP [CHEM] Timed CBC WITH AUTO DIFF [HEME] Timed MAGNESIUM [CHEM] Timed TROPONIN I [CHEM] Timed - Plan Plan:: ASSESSMENT AND PLAN - Acute decompensated systolic congestive heart failure-known severe MR and most recent ejection fraction was 30 to 35%. She has not been compliant with medications. She has been fairly stable since admission and experienced good diuresis thus far. -Place Jha catheter for strict intake and output monitoring -Rate control of atrial fibrillation as discussed below -Hold DAVID inhibitor with lower blood pressures -Furosemide IV twice today -CARLIE stockings to help with edema Atrial fibrillation with rapid ventricular response-chronically anticoagulated with apixaban. No symptoms such as palpitations. Well controlled with IV diltiazem -Discontinue diltiazem infusion -Diltiazem 30 mg p.o. every 6 hours, transition to long-acting form in a.m. -Continue metoprolol and digoxin -Cardiac monitoring -Continue apixaban Type 2 diabetes mellitus-unsure of control at this time. She is on 2 oral medications which will be on hold during her diuresis with her borderline renal function. She will be managed with sliding scale insulin. -Hold Metformin and glipizide -Low-dose sliding scale insulin Stage IIIb chronic kidney disease-creatinine is at baseline at this point but will need close monitoring in the setting of acute diuresis. Maintenance issues - - DVT prophylaxis -apixaban - GI prophylaxis -PPI - Nutrition -low-sodium - Jha catheter -will be placed for strict intake and output monitoring CODE STATUS -full code for now, patient would like to talk to her son about this more Admission justification -this patient will be admitted for inpatient services and is medically appropriate meeting medical necessity for inpatient admission as outlined in my documentation. I reasonably expect the patient will require inpatient services that span a period time over 2 midnights. I reasonably expect this patient to be discharged or transferred within 96 hours [facility] Disposition -I would anticipate discharge home versus possibly subacute rehab Primary care physician -DEISI Jennings
[2020-04-18] MEDS: Digoxin 125 MCG Tab PO SCH (13:58)
[2020-04-18] MEDS: Melatonin 3 MG Tab PO SCH (20:37)
[2020-04-19] MEDS: Diltiazem IR 30 MG Tab PO SCH (05:00)
[2020-04-19] MEDS: Pantoprazole 40 MG Tab.CR PO SCH (07:33)
[2020-04-19] MEDS: Insulin Lispro 100 Unit/ML 3 ML KwikPen SUBCUT SCH ×4 (08:42→21:21)
[2020-04-19] MEDS: Aspirin 81 MG Tab.EC PO SCH (08:49)
[2020-04-19] MEDS: Metoprolol Succinate 50 MG Tab.ER PO SCH (08:49)
[2020-04-19] MEDS: Apixaban 5 MG Tab PO SCH ×2 (08:49→20:57)
[2020-04-19] MEDS: Magnesium Oxide 400 MG Tab PO SCH ×2 (08:50→20:57)
[2020-04-19] MEDS: atorvaSTATin 20 MG Tab PO SCH (08:50)
[2020-04-19] MEDS: Allopurinol 100 MG Tab PO SCH (08:50)
[2020-04-19] MEDS ORDERED: Furosemide 40 MG/4 ML VIAL IVPUSH ONE ×2 (09:10→18:45)
[2020-04-19] MEDS ORDERED: Diltiazem 120 MG Cap.CD PO SCH (09:15)
[2020-04-19] MEDS: Nystatin Topical Powder 15 GM Bottle TOP SCH ×3 (09:55→20:56)
--- NOTE | 2020-04-19 11:14 | PCM.PN ---
- General Info Date of Service: 04/19/20 Subjective Update: Ms. Arce has remained stable over the last 24 hours, diuresis has been somewhat marginal. She remains very weak but denies significant shortness of breath and has had adequate oxygenation. She is intermittently confused, but not agitated. Functional Status: Reports: Tolerating Diet. Denies: Ambulating - Review of Systems General: Reports: Weakness, Fatigue. Denies: Fever, Chills Pulmonary: Reports: No Symptoms Cardiovascular: Reports: No Symptoms Gastrointestinal: Reports: No Symptoms - Patient Data Vitals - Most Recent: Last Vital Signs Temp 97.3 F 04/19/20 10:00 Pulse 64 04/19/20 11:00 Resp 13 04/19/20 11:00 BP 105/58 L 04/19/20 11:00 Pulse Ox 93 L 04/19/20 11:00 Weight - Most Recent: 149 lb 6.4 oz I&O - Last 24 Hours: Intake & Output 04/18/20 04/19/20 04/19/20 22:59 06:59 14:59 Intake Total 1080 340 Output Total 400 600 125 Balance 680 -600 215 Lab Results Last 24 Hours: Laboratory Results - last 24 hr 04/18/20 04/19/20 04/19/20 Range/Units 05:11 05:25 05:25 WBC 5.7 (4.5-11.0) K/uL RBC 3.73 (3.30-5.50) M/uL Hgb 10.7 L (12.0-15.0) g/dL Hct 35.1 L (36.0-48.0) % MCV 94 (80-98) fL MCH 29 (27-31) pg MCHC 31 L (32-36) % Plt Count 156 (150-400) K/uL Neut % (Auto) 70 H (36-66) % Lymph % (Auto) 14 L (24-44) % [place] % (Auto) 13 H (2-6) % Eos % (Auto) 2 (2-4) % Baso % (Auto) 0 (0-1) % Sodium 140 (140-148) mmol/L Potassium 3.6 (3.6-5.2) mmol/L Chloride 102 (100-108) mmol/L Carbon Dioxide 28 (21-32) mmol/L Anion Gap 10.4 (5.0-14.0) mmol/L BUN 20 H (7-18) mg/dL Creatinine 1.2 H (0.6-1.0) mg/dL Est Cr Clr Drug Dosing 25.07 mL/min Estimated GFR (MDRD) 43 L (>60) Glucose 134 H (74-106) mg/dL Hemoglobin A1c 7.2 H (4.5-6.2) % Calcium 9.0 (8.5-10.1) mg/dL Magnesium 2.1 D (1.8-2.4) mg/dL Troponin I 0.047 (0.000-0.056) ng/mL Chidi Results Last 24 Hours: Microbiology 04/18/20 01:00 Urine Culture - Preliminary Urine, Clean Catch NO GROWTH AFTER 1 DAY Med Orders - Current: Current Medications Acetaminophen (Tylenol) 650 mg PO Q4H PRN PRN Reason: Pain (Mild 1-3)/fever Last Admin: 04/19/20 10:22 Dose: 650 mg Documented by: Albuterol (Proventil Neb Soln) 2.5 mg NEB Q4H PRN PRN Reason: Shortness Of Breath/wheezing Allopurinol (Zyloprim) 100 mg PO DAILY [facility] Last Admin: 04/19/20 08:50 Dose: 100 mg Documented by: Apixaban (Eliquis) 5 mg PO BID [facility] Last Admin: 04/19/20 08:49 Dose: 5 mg Documented by: Aspirin (Halfprin) 81 mg PO DAILY [facility] Last Admin: 04/19/20 08:49 Dose: 81 mg Documented by: Atorvastatin Calcium (Lipitor) 40 mg PO DAILY [facility] Last Admin: 04/19/20 08:50 Dose: 40 mg Documented by: Digoxin (Lanoxin) 125 mcg PO DAILY@1300 [facility] Last Admin: 04/18/20 13:58 Dose: 125 mcg Documented by: Diltiazem HCl (Cardizem Cd) 120 mg PO DAILY [facility] Last Admin: 04/19/20 09:55 Dose: 120 mg Documented by: Furosemide (Lasix) 40 mg IVPUSH NOW ONE Stop: 04/19/20 18:46 Insulin Human Lispro (Humalog) 0 unit SUBCUT QIDACANDBED [facility]; Protocol Last Admin: 04/19/20 08:42 Dose: 1 units Documented by: Lorazepam (Ativan) 0.5 mg IVPUSH Q4H PRN PRN Reason: Nausea/Vomiting Magnesium Hydroxide (Milk Of Magnesia) 30 ml PO Q12H PRN PRN Reason: Constipation Magnesium Oxide (Magnesium Oxide) 400 mg PO BID [facility] Last Admin: 04/19/20 08:50 Dose: 400 mg Documented by: Melatonin (Melatonin) 9 mg PO BEDTIME [facility] Last Admin: 04/18/20 20:37 Dose: 9 mg Documented by: Metoprolol Succinate (Toprol Xl) 200 mg PO DAILY [facility] Last Admin: 04/19/20 08:49 Dose: 200 mg Documented by: Nystatin (Nystop) 0 gm TOP TID [facility] Last Admin: 04/19/20 09:55 Dose: 1 applicful Documented by: Ondansetron HCl (Zofran) 4 mg IV Q6H PRN PRN Reason: Nausea/Vomiting Ondansetron HCl (Zofran Odt) 4 mg PO Q6H PRN PRN Reason: Nausea able to take PO Pantoprazole Sodium (Protonix) 40 mg PO ACBREAKFAST [facility] Last Admin: 04/19/20 07:33 Dose: 40 mg Documented by: Senna/Docusate Sodium (Senna Plus) 1 tab PO BID PRN PRN Reason: Constipation Sodium Chloride (Saline Flush) 10 ml FLUSH ASDIRECTED PRN PRN Reason: Keep Vein Open Discontinued Medications Apixaban (Eliquis) 5 mg PO BID [facility] Diltiazem HCl (Diltiazem) 10 mg IVPUSH ONETIME ONE Stop: 04/18/20 02:00 Last Admin: 04/18/20 02:10 Dose: 10 mg Documented by: Diltiazem HCl (Cardizem) 30 mg PO Q6HR [facility] Last Admin: 04/19/20 05:00 Dose: 30 mg Documented by: Furosemide (Lasix) 40 mg IVPUSH ONETIME ONE Stop: 04/18/20 00:53 Last Admin: 04/18/20 01:00 Dose: 40 mg Documented by: Furosemide (Lasix) 40 mg IVPUSH NOW ONE Stop: 04/18/20 10:01 Last Admin: 04/18/20 09:46 Dose: 40 mg Documented by: Furosemide (Lasix) 40 mg IVPUSH NOW ONE Stop: 04/18/20 18:01 Last Admin: 04/18/20 17:23 Dose: 40 mg Documented by: Furosemide (Lasix) 40 mg IVPUSH NOW ONE Stop: 04/19/20 09:11 Last Admin: 04/19/20 09:56 Dose: 40 mg Documented by: Diltiazem HCl 100 mg/ Sodium (Chloride) 100 mls @ 5 mls/hr IV TITRATE [facility]; Protocol Last Titration: 04/18/20 12:14 Dose: 0 mg/hr, 0 mls/hr Documented by: Sodium Chloride (Normal Saline) 500 mls @ 15 mls/hr IV ASDIRECTED ONE Stop: 04/19/20 12:28 Last Admin: 04/18/20 03:00 Dose: 15 mls/hr Documented by: Magnesium Sulfate (Magnesium Sulfate In Water 2 Gm/50 Ml) 2 gm in 50 mls @ 25 mls/hr IV Q6H [facility] Stop: 04/18/20 17:59 Last Admin: 04/18/20 16:06 Dose: 25 mls/hr Documented by: Metoprolol Succinate (Toprol Xl) 50 mg PO ONETIME ONE Stop: 04/18/20 00:48 Last Admin: 04/18/20 00:59 Dose: 50 mg Documented by: - Exam General: Alert, Cooperative, Mild Distress Lungs: Clear to Auscultation, Normal Respiratory Effort Cardiovascular: Regular Rate, Irregular Rhythm, Murmurs GI/Abdominal Exam: Soft, Non-Tender, No Organomegaly, No Distention Extremities: Non-Tender, Pedal Edema Sepsis Event Note - Evaluation Sepsis Screening Result: No Definite Risk - Focused Exam Vital Signs: Vital Signs Temp Pulse Pulse Resp BP BP Pulse Ox 04/19/20 11:00 64 13 105/58 L 93 L 04/19/20 10:00 97.3 F 63 29 H 106/54 L 94 L 04/19/20 09:55 77 123/89 04/19/20 09:00 69 18 123/89 04/19/20 08:49 82 129/70 04/19/20 08:00 71 24 H 129/70 96 04/19/20 07:00 97.7 F 80 23 H 127/70 86 L 04/19/20 06:00 70 24 H 124/63 93 L 04/19/20 05:00 75 27 H 116/38 L 91 L 02/02/21 04:00 72 23 H 127/67 91 L 04/19/20 03:00 73 21 H 122/63 04/19/20 02:00 74 23 H 126/60 96 04/19/20 01:00 67 23 H 117/61 93 L 04/19/20 00:00 65 23 H 114/71 94 L - Problem List Review Problem List Initiated/Reviewed/Updated: Yes - My Orders Last 24 Hours: My Active Orders 04/18/20 11:11 Convert IV to Saline Lock [OM.PC] Routine 04/19/20 08:36 OT Evaluation and Treatment [CONS] Routine 04/19/20 09:15 Diltiazem [Cardizem CD] 120 mg PO DAILY 04/19/20 11:04 Remove Jha Catheter [Urinary Catheter Removal] [RC] Per Unit Routine 04/19/20 19:00 Furosemide [Lasix] 40 mg IVPUSH NOW ONE 04/20/20 05:00 BASIC METABOLIC PANEL,BMP [CHEM] Timed - Plan Plan:: ASSESSMENT AND PLAN - Acute decompensated systolic congestive heart failure-known severe MR and most recent ejection fraction was 30 to 35%. She has not been compliant with medications. She has been fairly stable since admission eyes significant shortness of breath -Discontinue Jha catheter -Rate control of atrial fibrillation as discussed below -Hold DAVID inhibitor with lower blood pressures -Furosemide IV twice today -CARLIE stockings to help with edema Atrial fibrillation with rapid ventricular response-chronically anticoagulated with apixaban. No symptoms such as palpitations. Rate has been well controlled with transition to oral medication -Diltiazem CD 120 mg daily -Continue metoprolol and digoxin -Cardiac monitoring -Continue apixaban Type 2 diabetes mellitus-unsure of control at this time. She is on 2 oral medications which will be on hold during her diuresis with her borderline renal function. She will be managed with sliding scale insulin. -Hold Metformin and glipizide -Low-dose sliding scale insulin Stage IIIb chronic kidney disease-creatinine is at baseline at this point but will need close monitoring in the setting of acute diuresis. Maintenance issues - - DVT prophylaxis -apixaban - GI prophylaxis -PPI - Nutrition -low-sodium - Jha catheter -will be placed for strict intake and output monitoring CODE STATUS -full code for now, patient would like to talk to her son about this more Admission justification -this patient will be admitted for inpatient services and is medically appropriate meeting medical necessity for inpatient admission as outlined in my documentation. I reasonably expect the patient will require inpatient services that span a period time over 2 midnights. I reasonably expect this patient to be discharged or transferred within 96 hours after admission to the [facility]. Disposition -I would anticipate discharge home versus possibly subacute rehab Primary care physician -DEISI Jennings
[2020-04-19] MEDS: Digoxin 125 MCG Tab PO SCH (12:11)
[2020-04-19] MEDS ORDERED: Sodium Chloride 0.9% 500 ML IV ONE (15:00)
[2020-04-19] MEDS: Melatonin 3 MG Tab PO SCH (20:57)
[2020-04-20] MEDS: Insulin Lispro 100 Unit/ML 3 ML KwikPen SUBCUT SCH ×4 (07:57→20:56)
[2020-04-20] MEDS: Pantoprazole 40 MG Tab.CR PO SCH (08:07)
[2020-04-20] MEDS ORDERED: Furosemide 40 MG/4 ML VIAL IVPUSH ONE ×2 (08:14→18:00)
[2020-04-20] MEDS ORDERED: Potassium Chloride 20 MEQ Tab.ER PO ONE ×2 (08:30→17:00)
[2020-04-20] MEDS: Apixaban 5 MG Tab PO SCH ×2 (08:52→20:47)
[2020-04-20] MEDS: Allopurinol 100 MG Tab PO SCH (08:53)
[2020-04-20] MEDS: Aspirin 81 MG Tab.EC PO SCH (08:53)
[2020-04-20] MEDS: atorvaSTATin 20 MG Tab PO SCH (08:53)
[2020-04-20] MEDS: Nystatin Topical Powder 15 GM Bottle TOP SCH ×3 (08:53→20:47)
[2020-04-20] MEDS: Magnesium Oxide 400 MG Tab PO SCH ×2 (08:53→20:47)
[2020-04-20] MEDS ORDERED: Furosemide 40 MG Tab PO ONE ×2 (09:00→17:30)
[2020-04-20] MEDS: Metoprolol Succinate 50 MG Tab.ER PO SCH (10:39)
--- NOTE | 2020-04-20 12:07 | PCM.PN ---
- General Info Date of Service: 04/20/20 Subjective Update: Ms. Arce has remained very weak, with inability to transfer or ambulate. She currently denies significant shortness of breath and peripheral edema has improved. Functional Status: Reports: Tolerating Diet, Urinating. Denies: Ambulating - Review of Systems General: Reports: Weakness, Fatigue Pulmonary: Reports: No Symptoms Cardiovascular: Reports: No Symptoms Gastrointestinal: Reports: No Symptoms - Patient Data Vitals - Most Recent: Last Vital Signs Temp 95.5 F L 04/20/20 07:00 Pulse 67 04/20/20 11:10 Resp 20 04/20/20 11:10 BP 136/71 04/20/20 11:10 Pulse Ox 92 L 04/20/20 11:10 Weight - Most Recent: 146 lb 9.718 oz I&O - Last 24 Hours: Intake & Output 04/19/20 04/20/20 04/20/20 22:59 06:59 14:59 Intake Total 360 240 Output Total 325 175 Balance 35 65 Lab Results Last 24 Hours: Laboratory Results - last 24 hr 04/20/20 Range/Units 05:50 Sodium 140 (140-148) mmol/L Potassium 3.4 L (3.6-5.2) mmol/L Chloride 103 (100-108) mmol/L Carbon Dioxide 30 (21-32) mmol/L Anion Gap 10.4 (5.0-14.0) mmol/L BUN 18 (7-18) mg/dL Creatinine 1.1 H (0.6-1.0) mg/dL Est Cr Clr Drug Dosing 27.35 mL/min Estimated GFR (MDRD) 47 L (>60) Glucose 119 H (74-106) mg/dL Calcium 8.8 (8.5-10.1) mg/dL Chidi Results Last 24 Hours: Microbiology 04/18/20 01:00 Urine Culture - Final Urine, Clean Catch MIXED POSITIVE JOSE DAY 2 Med Orders - Current: Current Medications Acetaminophen (Tylenol) 650 mg PO Q4H PRN PRN Reason: Pain (Mild 1-3)/fever Last Admin: 04/19/20 10:22 Dose: 650 mg Documented by: Albuterol (Proventil Neb Soln) 2.5 mg NEB Q4H PRN PRN Reason: Shortness Of Breath/wheezing Allopurinol (Zyloprim) 100 mg PO DAILY [facility] Last Admin: 04/20/20 08:53 Dose: 100 mg Documented by: Apixaban (Eliquis) 5 mg PO BID [facility] Last Admin: 04/20/20 08:52 Dose: 5 mg Documented by: Aspirin (Halfprin) 81 mg PO DAILY [facility] Last Admin: 04/20/20 08:53 Dose: 81 mg Documented by: Atorvastatin Calcium (Lipitor) 40 mg PO DAILY [facility] Last Admin: 04/20/20 08:53 Dose: 40 mg Documented by: Digoxin (Lanoxin) 125 mcg PO DAILY@1300 [facility] Last Admin: 04/19/20 12:11 Dose: 125 mcg Documented by: Furosemide (Lasix) 40 mg IVPUSH NOW ONE Stop: 04/20/20 18:01 Insulin Human Lispro (Humalog) 0 unit SUBCUT QIDACANDBED [facility]; Protocol Last Admin: 04/20/20 07:57 Dose: Not Given Documented by: Lorazepam (Ativan) 0.5 mg IVPUSH Q4H PRN PRN Reason: Nausea/Vomiting Magnesium Hydroxide (Milk Of Magnesia) 30 ml PO Q12H PRN PRN Reason: Constipation Magnesium Oxide (Magnesium Oxide) 400 mg PO BID [facility] Last Admin: 04/20/20 08:53 Dose: 400 mg Documented by: Melatonin (Melatonin) 9 mg PO BEDTIME [facility] Last Admin: 04/19/20 20:57 Dose: 9 mg Documented by: Metoprolol Succinate (Toprol Xl) 200 mg PO DAILY [facility] Last Admin: 04/20/20 10:39 Dose: 200 mg Documented by: Nystatin (Nystop) 0 gm TOP TID [facility] Last Admin: 04/20/20 08:53 Dose: 1 applicful Documented by: Ondansetron HCl (Zofran) 4 mg IV Q6H PRN PRN Reason: Nausea/Vomiting Ondansetron HCl (Zofran Odt) 4 mg PO Q6H PRN PRN Reason: Nausea able to take PO Pantoprazole Sodium (Protonix) 40 mg PO ACBREAKFAST [facility] Last Admin: 04/20/20 08:07 Dose: 40 mg Documented by: Potassium Chloride (Klor-Con M20) 40 meq PO ONETIME ONE Stop: 04/20/20 17:01 Senna/Docusate Sodium (Senna Plus) 1 tab PO BID PRN PRN Reason: Constipation Sodium Chloride (Saline Flush) 10 ml FLUSH ASDIRECTED PRN PRN Reason: Keep Vein Open Discontinued Medications Apixaban (Eliquis) 5 mg PO BID [facility] Diltiazem HCl (Diltiazem) 10 mg IVPUSH ONETIME ONE Stop: 04/18/20 02:00 Last Admin: 04/18/20 02:10 Dose: 10 mg Documented by: Diltiazem HCl (Cardizem) 30 mg PO Q6HR [facility] Last Admin: 04/19/20 05:00 Dose: 30 mg Documented by: Diltiazem HCl (Cardizem Cd) 120 mg PO DAILY [facility] Last Admin: 04/19/20 09:55 Dose: 120 mg Documented by: Furosemide (Lasix) 40 mg IVPUSH ONETIME ONE Stop: 04/18/20 00:53 Last Admin: 04/18/20 01:00 Dose: 40 mg Documented by: Furosemide (Lasix) 40 mg IVPUSH NOW ONE Stop: 04/18/20 10:01 Last Admin: 04/18/20 09:46 Dose: 40 mg Documented by: Furosemide (Lasix) 40 mg IVPUSH NOW ONE Stop: 04/18/20 18:01 Last Admin: 04/18/20 17:23 Dose: 40 mg Documented by: Furosemide (Lasix) 40 mg IVPUSH NOW ONE Stop: 04/19/20 09:11 Last Admin: 04/19/20 09:56 Dose: 40 mg Documented by: Furosemide (Lasix) 40 mg IVPUSH NOW ONE Stop: 04/19/20 18:46 Furosemide (Lasix) 40 mg PO ONETIME ONE Stop: 04/20/20 09:01 Last Admin: 04/20/20 08:52 Dose: 40 mg Documented by: Diltiazem HCl 100 mg/ Sodium (Chloride) 100 mls @ 5 mls/hr IV TITRATE [facility]; Protocol Last Titration: 04/18/20 12:14 Dose: 0 mg/hr, 0 mls/hr Documented by: Sodium Chloride (Normal Saline) 500 mls @ 15 mls/hr IV ASDIRECTED ONE Stop: 04/19/20 12:28 Last Admin: 04/18/20 03:00 Dose: 15 mls/hr Documented by: Magnesium Sulfate (Magnesium Sulfate In Water 2 Gm/50 Ml) 2 gm in 50 mls @ 25 mls/hr IV Q6H [facility]JUN Stop: 04/18/20 17:59 Last Admin: 04/18/20 16:06 Dose: 25 mls/hr Documented by: Sodium Chloride (Normal Saline) 500 mls @ 250 mls/hr IV ONETIME ONE Stop: 04/19/20 16:59 Last Admin: 04/19/20 14:52 Dose: 250 mls/hr Documented by: Metoprolol Succinate (Toprol Xl) 50 mg PO ONETIME ONE Stop: 04/18/20 00:48 Last Admin: 04/18/20 00:59 Dose: 50 mg Documented by: Potassium Chloride (Klor-Con M20) 40 meq PO ONETIME ONE Stop: 04/20/20 08:31 Last Admin: 04/20/20 08:52 Dose: 40 meq Documented by: - Exam Quality Assessment: DVT Prophylaxis General: Alert, Oriented, Cooperative, Mild Distress Lungs: Clear to Auscultation, Normal Respiratory Effort, Decreased Breath Sounds. No: Crackles, Rales, Rhonchi, Wheezing Cardiovascular: Regular Rate, Irregular Rhythm, Murmurs GI/Abdominal Exam: Soft, Non-Tender, No Organomegaly, No Distention Extremities: Non-Tender, No Pedal Edema Sepsis Event Note - Evaluation Sepsis Screening Result: No Definite Risk - Focused Exam Vital Signs: Vital Signs Temp Pulse Pulse Resp BP BP Pulse Ox 04/20/20 11:10 67 20 136/71 92 L 04/20/20 10:39 65 136/71 04/20/20 09:00 76 13 137/69 92 L 04/20/20 07:00 95.5 F L 68 20 137/75 92 L 04/20/20 06:00 74 20 138/72 91 L 04/20/20 05:00 69 20 129/66 04/20/20 04:00 97.3 F 68 26 H 131/69 94 L 04/20/20 03:00 69 22 H 122/59 L 93 L 04/20/20 02:00 65 21 H 129/69 92 L 04/20/20 01:00 71 25 H 119/68 93 L - Problem List Review Problem List Initiated/Reviewed/Updated: Yes - My Orders Last 24 Hours: My Active Orders 04/20/20 12:01 Patient Status [ADT] Routine 04/20/20 17:00 Potassium Chloride [Klor-Con M20] 40 meq PO ONETIME ONE 04/20/20 18:00 Furosemide [Lasix] 40 mg IVPUSH NOW ONE 04/21/20 05:00 BASIC METABOLIC PANEL,BMP [CHEM] Timed - Plan Plan:: ASSESSMENT AND PLAN Acute decompensated systolic congestive heart failure-known severe MR and most recent ejection fraction was 30 to 35%. Denies shortness of breath but remains very weak. -Hold DAVID inhibitor with lower blood pressures -Furosemide IV twice today -CARLIE stockings to help with edema Atrial fibrillation with rapid ventricular response-chronically anticoagulated with apixaban. No symptoms such as palpitations. Rate control remains adequate, now off of oral diltiazem because of hypotension and bradycardia -Continue metoprolol and digoxin -Cardiac monitoring -Continue apixaban Type 2 diabetes mellitus-unsure of control at this time. She is on 2 oral medications which will be on hold during her diuresis with her borderline renal function. She will be managed with sliding scale insulin. -Hold Metformin and glipizide -Low-dose sliding scale insulin Stage IIIb chronic kidney disease-creatinine is at baseline at this point but will need close monitoring in the setting of acute diuresis. Maintenance issues - - DVT prophylaxis -apixaban - GI prophylaxis -PPI - Nutrition -low-sodium - Jha catheter -will be placed for strict intake and output monitoring CODE STATUS -full code for now, patient would like to talk to her son about this more Admission justification -this patient will be admitted for inpatient services and is medically appropriate meeting medical necessity for inpatient admission as outlined in my documentation. I reasonably expect the patient will require inpatient services that span a period time over 2 midnights. I reasonably expect this patient to be discharged or transferred within 96 hours after admission to the [facility] Disposition -I would anticipate discharge home versus possibly subacute rehab Primary care physician -DEISI Jennings
[2020-04-20] MEDS: Digoxin 125 MCG Tab PO SCH (13:06)
[2020-04-20] MEDS: Melatonin 3 MG Tab PO SCH (20:47)
[2020-04-21] MEDS: Insulin Lispro 100 Unit/ML 3 ML KwikPen SUBCUT SCH ×2 (07:48→12:07)
[2020-04-21] MEDS: Allopurinol 100 MG Tab PO SCH (08:57)
[2020-04-21] MEDS: Aspirin 81 MG Tab.EC PO SCH (08:57)
[2020-04-21] MEDS: Magnesium Oxide 400 MG Tab PO SCH (08:58)
[2020-04-21] MEDS: Nystatin Topical Powder 15 GM Bottle TOP SCH (08:58)
[2020-04-21] MEDS: Pantoprazole 40 MG Tab.CR PO SCH (08:58)
[2020-04-21] MEDS: atorvaSTATin 20 MG Tab PO SCH (08:58)
[2020-04-21] MEDS: Metoprolol Succinate 50 MG Tab.ER PO SCH (08:58)
[2020-04-21] MEDS: Apixaban 5 MG Tab PO SCH (08:58)
[2020-04-21 10:36] VITALS: BP 140/58; PULSE 65
[2020-04-21] MEDS: Digoxin 125 MCG Tab PO SCH (12:07)
--- NOTE | 2020-04-21 13:11 | PCM.DCSUM1 ---
Discharge Summary - Hospital Course Brief History: Ms. Arce is an 84-year-old woman who was admitted through the emergency department with increased weakness and peripheral edema secondary to congestive heart failure exacerbation and atrial fibrillation with rapid ventricular response. - Discharge Data Discharge Date: 04/21/20 Discharge Disposition: DC/Tfer to SNF 03 Condition: Stable - Referral to Home Health Primary Care Physician: DEISI Jennings - Discharge Diagnosis/Problem(s) (1) Acute on chronic systolic and diastolic heart failure, NYHA class 3 SNOMED Code(s): 870147200044390, 243973543754974 ICD Code: I50.43 - ACUTE ON CHRONIC COMBINED SYSTOLIC AND DIASTOLIC HRT FAIL Status: Acute Current Visit: Yes (2) Atrial fibrillation with rapid ventricular response SNOMED Code(s): 717462328181350 ICD Code: I48.91 - UNSPECIFIED ATRIAL FIBRILLATION Status: Acute Current Visit: Yes (3) CKD (chronic kidney disease) stage 3, GFR 30-59 ml/min SNOMED Code(s): 675454064 ICD Code: N18.3 - CHRONIC KIDNEY DISEASE, STAGE 3 (MODERATE) * DO NOT USE * Status: Chronic Priority: High Current Visit: Yes Qualifiers: Chronic kidney disease stage 3 subtype: stage 3b (GFR 30-44) Qualified Code(s): N18.32 - Chronic kidney disease, stage 3b (4) Diabetes mellitus type II, controlled SNOMED Code(s): 30166664, 579711150 ICD Code: E11.9 - TYPE 2 DIABETES MELLITUS WITHOUT COMPLICATIONS Status: Chronic Current Visit: Yes Qualifiers: Diabetes mellitus shelter insulin use: 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 PT Reason for Consult: Strengthening This query below is only for informational purposes and is not editable. 04/19/20 08:36 OT Evaluation and Treatment [CONS] Routine Please Evaluate and Treat. OT Reason for Consult: ADL's Pending Discharge: Yes Discharge Disposition: [facility] This query below is only for informational purposes and is not editable. Admission Diagnosis/Problem: CHF, Congestive heart failure Hospital Course: Giana presented to the emergency room after her son became concerned about her lower extremity swelling and summoned an ambulance. She reports a steady increase in swelling over the past couple of weeks to the point that her legs are now swollen above her knee. They have never been swollen this badly before. She does have some discomfort in her feet when she stands but is comfortable at rest. She says that she feels mildly short of breath but is obviously working hard to breathe. She does not feel any palpitations. She does report that she has not been taking her medications regularly. Her weight has been stable. Appetite has been good. Work-up in the emergency room revealed evidence for congestive heart failure as well as rapid atrial fibrillation. She has received furosemide, a Jha catheter was placed and she was started on a diltiazem infusion. She was admitted to the intensive care unit for management of both decompensated heart failure and rapid atrial fibrillation. With use of the diltiazem she did experience good rate control and was transitioned to oral diltiazem. Unfortunately while on oral diltiazem did develop episodes of significant bradycardia so this medication was discontinued. Off of the diltiazem rate control remained adequate and did not require further management. During recent hospitalization she had had an echocardiogram that showed decreased left ventricular function and estimated ejection fraction of 30 to 35% as well as underlying diastolic dysfunction. We did explore possibility of considering anticoagulation, this was held because of her severely weakened state and high risk for falls. If she is able to regain some strength the issue of anticoagulation could be reconsidered. Glucose levels were monitored during hospital stay and while in the hospital Metformin and glipizide were held. 4 times daily glucometers were monitored and she was treated with sliding scale Humalog. Metformin and glipizide will be resumed at the time of discharge as her appetite and oral intake had improved. She will be continued on oral medications with metoprolol and lisinopril at the time of discharge. She did receive IV diuretic therapy throughout hospitalization and there was good improvement in her shortness of breath as well as peripheral edema. She will be discharged to the custodial on increased dose of furosemide at 40 mg daily. Her renal function remained stable throughout hospital stay despite diuresis. She remained profoundly weak during hospitalization, unable to transfer or ambulate independently. She will be discharged to the custodial for restorative physical therapy and Occupational Therapy. Activity will be as tolerated and she will be on a 2 g sodium diabetic diet. Follow-up will be at the custodial as needed. BMP will be obtained on April 26. - Patient Instructions Diet: Low Sodium, Diabetic Diet Activity: As Tolerated Other/Special Instructions: Daily physical therapy and Occupational Therapy while at the custodial. Follow-up BMP April 26. - Discharge Plan *PRESCRIPTION DRUG MONITORING PROGRAM REVIEWED*: Not Applicable *COPY OF PRESCRIPTION DRUG MONITORING REPORT IN PATIENT [place]: Not Applicable Prescriptions/Med Rec: Furosemide 40 mg PO DAILY #30 tablet Home Medications: Home Meds metFORMIN [Glucophage] 1,000 mg PO BIDM 10/06/13 [History] Allopurinol [Zyloprim] 100 mg PO DAILY 10/15/15 [History] Lisinopril 40 mg PO DAILY 08/08/17 [History] atorvaSTATin [Lipitor] 40 mg PO DAILY 08/08/17 [History] Apixaban [Eliquis] 5 mg PO BID 09/04/18 [History] Aspirin [[place] Aspirin EC] 81 mg PO DAILY 10/09/19 [History] Gabapentin [Neurontin] 300 mg PO TID 10/09/19 [History] Isosorbide Mononitrate [Isosorbide Mononitrate ER] 30 mg PO DAILY 10/09/19 [Hist ory] Metoprolol Succinate 200 mg PO DAILY 10/09/19 [History] glipiZIDE [Glucotrol] 10 mg PO DAILY 10/09/19 [History] Magnesium 250 mg PO DAILY 10/21/19 [History] Acetaminophen/Caffeine [Excedrin Tension Headache] 1 tab PO ASDIRECTED PRN 10/23/19 [History] allopurinoL [Zyloprim] 100 mg PO DAILY 10/23/19 [History] Cholecalciferol (Vitamin D3) [Vitamin D3] 2,000 unit PO DAILY 04/18/20 [History] Digoxin [Digox] 125 mcg PO DAILY 04/18/20 [History] Omeprazole 20 mg PO DAILY 04/18/20 [History] Potassium Chloride [Klor-Con M20] 20 meq PO DAILY 04/18/20 [History] Furosemide 40 mg PO DAILY #30 tablet 04/21/20 [Rx] Referrals: Amaury Peacock MD [Physician] - - Discharge Summary/Plan Comment DC Time >30 min.: No - Patient Data Vitals - Most Recent: Last Vital Signs Temp 97.0 F 04/21/20 10:34 Pulse 65 04/21/20 12:07 Resp 18 04/21/20 10:34 BP 140/58 L 04/21/20 10:34 Pulse Ox 93 L 04/21/20 10:34 Weight - Most Recent: 146 lb 9.718 oz I&O - Last 24 hours: Intake & Output 04/20/20 04/21/20 04/21/20 22:59 06:59 14:59 Intake Total 240 300 200 Balance 240 300 200 Lab Results - Last 24 hrs: Laboratory Results - last 24 hr 04/20/20 04/20/20 04/21/20 Range/Units 16:30 20:57 05:35 Sodium 140 (140-148) mmol/L Potassium 3.9 (3.6-5.2) mmol/L Chloride 102 (100-108) mmol/L Carbon Dioxide 30 (21-32) mmol/L Anion Gap 8.5 (5.0-14.0) mmol/L BUN 15 (7-18) mg/dL Creatinine 1.0 (0.6-1.0) mg/dL Est Cr Clr Drug Dosing 30.08 mL/min Estimated GFR (MDRD) 53 L (>60) Glucose 127 H (74-106) mg/dL POC Glucose 138 H 215 H (74-106) MG/DL Calcium 9.1 (8.5-10.1) mg/dL 04/21/20 04/21/20 Range/Units 07:30 11:30 Sodium (140-148) mmol/L Potassium (3.6-5.2) mmol/L Chloride (100-108) mmol/L Carbon Dioxide (21-32) mmol/L Anion Gap (5.0-14.0) mmol/L BUN (7-18) mg/dL Creatinine (0.6-1.0) mg/dL Est Cr Clr Drug Dosing mL/min Estimated GFR (MDRD) (>60) Glucose (74-106) mg/dL POC Glucose 129 H 255 H (74-106) MG/DL Calcium (8.5-10.1) mg/dL Med Orders - Current: Current Medications Acetaminophen (Tylenol) 650 mg PO Q4H PRN PRN Reason: Pain (Mild 1-3)/fever Last Admin: 04/19/20 10:22 Dose: 650 mg Documented by: Albuterol (Proventil Neb Soln) 2.5 mg NEB Q4H PRN PRN Reason: Shortness Of Breath/wheezing Allopurinol (Zyloprim) 100 mg PO DAILY [facility] Last Admin: 04/21/20 08:57 Dose: 100 mg Documented by: Apixaban (Eliquis) 5 mg PO BID [facility] Last Admin: 04/21/20 08:58 Dose: 5 mg Documented by: Aspirin (Halfprin) 81 mg PO DAILY [facility] Last Admin: 04/21/20 08:57 Dose: 81 mg Documented by: Atorvastatin Calcium (Lipitor) 40 mg PO DAILY [facility] Last Admin: 04/21/20 08:58 Dose: 40 mg Documented by: Digoxin (Lanoxin) 125 mcg PO DAILY@1300 [facility] Last Admin: 04/21/20 12:07 Dose: 125 mcg Documented by: Insulin Human Lispro (Humalog) 0 unit SUBCUT QIDACANDBED [facility]; Protocol Last Admin: 04/21/20 12:07 Dose: 3 units Documented by: Lorazepam (Ativan) 0.5 mg IVPUSH Q4H PRN PRN Reason: Nausea/Vomiting Magnesium Hydroxide (Milk Of Magnesia) 30 ml PO Q12H PRN PRN Reason: Constipation Magnesium Oxide (Magnesium Oxide) 400 mg PO BID [facility] Last Admin: 04/21/20 08:58 Dose: 400 mg Documented by: Melatonin (Melatonin) 9 mg PO BEDTIME [facility] Last Admin: 04/20/20 20:47 Dose: 9 mg Documented by: Metoprolol Succinate (Toprol Xl) 200 mg PO DAILY [facility] Last Admin: 04/21/20 08:58 Dose: 200 mg Documented by: Nystatin (Nystop) 0 gm TOP TID [facility] Last Admin: 04/21/20 08:58 Dose: 1 applicful Documented by: Ondansetron HCl (Zofran) 4 mg IV Q6H PRN PRN Reason: Nausea/Vomiting Ondansetron HCl (Zofran Odt) 4 mg PO Q6H PRN PRN Reason: Nausea able to take PO Pantoprazole Sodium (Protonix) 40 mg PO ACBREAKFAST [facility] Last Admin: 04/21/20 08:58 Dose: 40 mg Documented by: Senna/Docusate Sodium (Senna Plus) 1 tab PO BID PRN PRN Reason: Constipation Sodium Chloride (Saline Flush) 10 ml FLUSH ASDIRECTED PRN PRN Reason: Keep Vein Open Discontinued Medications Apixaban (Eliquis) 5 mg PO BID [facility] Diltiazem HCl (Diltiazem) 10 mg IVPUSH ONETIME ONE Stop: 04/18/20 02:00 Last Admin: 04/18/20 02:10 Dose: 10 mg Documented by: Diltiazem HCl (Cardizem) 30 mg PO Q6HR [facility]UN Last Admin: 04/19/20 05:00 Dose: 30 mg Documented by: Diltiazem HCl (Cardizem Cd) 120 mg PO DAILY [facility] Last Admin: 04/19/20 09:55 Dose: 120 mg Documented by: Furosemide (Lasix) 40 mg IVPUSH ONETIME ONE Stop: 04/18/20 00:53 Last Admin: 04/18/20 01:00 Dose: 40 mg Documented by: Furosemide (Lasix) 40 mg IVPUSH NOW ONE Stop: 04/18/20 10:01 Last Admin: 04/18/20 09:46 Dose: 40 mg Documented by: Furosemide (Lasix) 40 mg IVPUSH NOW ONE Stop: 04/18/20 18:01 Last Admin: 04/18/20 17:23 Dose: 40 mg Documented by: Furosemide (Lasix) 40 mg IVPUSH NOW ONE Stop: 04/19/20 09:11 Last Admin: 04/19/20 09:56 Dose: 40 mg Documented by: Furosemide (Lasix) 40 mg IVPUSH NOW ONE Stop: 04/19/20 18:46 Furosemide (Lasix) 40 mg PO ONETIME ONE Stop: 04/20/20 09:01 Last Admin: 04/20/20 08:52 Dose: 40 mg Documented by: Furosemide (Lasix) 40 mg IVPUSH ONETIME ONE Stop: 04/20/20 18:01 Last Admin: 04/20/20 17:02 Dose: 40 mg Documented by: Furosemide (Lasix) 40 mg PO ONETIME ONE Stop: 04/20/20 17:31 Last Admin: 04/20/20 17:51 Dose: 40 mg Documented by: Diltiazem HCl 100 mg/ Sodium (Chloride) 100 mls @ 5 mls/hr IV TITRATE [facility]; Protocol Last Titration: 04/18/20 12:14 Dose: 0 mg/hr, 0 mls/hr Documented by: Sodium Chloride (Normal Saline) 500 mls @ 15 mls/hr IV ASDIRECTED ONE Stop: 04/19/20 12:28 Last Admin: 04/18/20 03:00 Dose: 15 mls/hr Documented by: Magnesium Sulfate (Magnesium Sulfate In Water 2 Gm/50 Ml) 2 gm in 50 mls @ 25 mls/hr IV Q6H ARJUN Stop: 04/18/20 17:59 Last Admin: 04/18/20 16:06 Dose: 25 mls/hr Documented by: Sodium Chloride (Normal Saline) 500 mls @ 250 mls/hr IV ONETIME ONE Stop: 04/19/20 16:59 Last Admin: 04/19/20 14:52 Dose: 250 mls/hr Documented by: Metoprolol Succinate (Toprol Xl) 50 mg PO ONETIME ONE Stop: 04/18/20 00:48 Last Admin: 04/18/20 00:59 Dose: 50 mg Documented by: Potassium Chloride (Klor-Con M20) 40 meq PO ONETIME ONE Stop: 04/20/20 08:31 Last Admin: 04/20/20 08:52 Dose: 40 meq Documented by: Potassium Chloride (Klor-Con M20) 40 meq PO ONETIME ONE Stop: 04/20/20 17:01 Last Admin: 04/20/20 17:02 Dose: 40 meq Documented by: - Exam Quality Assessment: Reports: DVT Prophylaxis General: Reports: Alert, Cooperative, No Acute Distress Lungs: Reports: Clear to Auscultation, Normal Respiratory Effort, Decreased Breath Sounds. Denies: Rales, Rhonchi, Wheezing Cardiovascular: Reports: Regular Rate, Irregular Rhythm, Murmurs GI/Abdominal Exam: Soft, Non-Tender, No Organomegaly, No Distention Extremities: Non-Tender, Pedal Edema
== END 2020-04-21 13:52 | DRG 291 ==
LOC: JP.ED 23:33 → JP.ICU 04-18 02:02 → JP.MS 04-20 13:43
PROVIDERS: ADMIT Internal Medicine; ATTEND Hospitalist
DX: I13.0 Hypertensive heart and chronic kidney disease with heart failure and stage 1 through stage 4 chronic kidney disease, or unspecified chronic kidney disease (principal); I50.43 Acute on chronic combined systolic (congestive) and diastolic (congestive) heart failure; N18.32 Chronic kidney disease, stage 3b; I48.91 Unspecified atrial fibrillation; I48.11 Longstanding persistent atrial fibrillation; R00.1 Bradycardia, unspecified; T46.1X5A Adverse effect of calcium-channel blockers, initial encounter; H40.9 Unspecified glaucoma; E11.22 Type 2 diabetes mellitus with diabetic chronic kidney disease; Z20.822 Contact with and (suspected) exposure to COVID-19; G43.909 Migraine, unspecified, not intractable, without status migrainosus; E78.00 Pure hypercholesterolemia, unspecified; J44.9 Chronic obstructive pulmonary disease, unspecified; K21.9 Gastro-esophageal reflux disease without esophagitis; H54.7 Unspecified visual loss; M19.90 Unspecified osteoarthritis, unspecified site; Z88.0 Allergy status to penicillin; Z79.01 Long term (current) use of anticoagulants; Z79.84 Long term (current) use of oral hypoglycemic drugs; Z88.1 Allergy status to other antibiotic agents; Z88.2 Allergy status to sulfonamides; Z88.5 Allergy status to narcotic agent; Z88.8 Allergy status to other drugs, medicaments and biological substances; Z79.82 Long term (current) use of aspirin; Z79.899 Other long term (current) drug therapy; I25.2 Old myocardial infarction; Z98.49 Cataract extraction status, unspecified eye; Z86.73 Personal history of transient ischemic attack (TIA), and cerebral infarction without residual deficits
CPT/HCPCS: 0241U; 36415; 51702; 71045; 80048; 80053; 81001; 82550; 82962; 83036; 83735; 83880; 84484; 85025; 87086; 93005; 93010; 96374; 97110; 97162; 97165; 97530; 97535; 99285; 99222; 99232; 99238; A9270-GY; J1815; J1940; J3475; J3490; J7040

== ENCOUNTER 2020-05-15 18:48 | Emergency (ER) | payer BC, MEDICARE ==
[2020-05-15] MEDS ORDERED: Oxymetazoline 0.05% Nasal Spray 30 ML Bottle NAS ONE (18:51)
[2020-05-15 19:04] VITALS: BP 130/67; PULSE 59
--- NOTE | 2020-05-15 19:42 | EDM.PDOC ---
ED HPI GENERAL MEDICAL PROBLEM - General Chief Complaint: ENT Problem Stated Complaint: NOSE BLEED Time Seen by Provider: 05/15/20 18:51 Source of Information: Reports: Patient, Family History Limitations: Reports: No Limitations - History of Present Illness INITIAL COMMENTS - FREE TEXT/NARRATIVE: Giana is an 84-year-old female presenting to the ED with acute onset of epistaxis since around 1530 hrs. today. She has tried several times to apply pressure to the nose, however, it will stop bleeding for a short period of time and then start again. She is currently on Eliquis for chronic atrial fibrillation. Patient to this she has a history for congestive heart failure, atherosclerotic heart disease, and diabetes. Patient was recently hospitalized for approximately a week at [facility] and was discharged to retirement. He denies any trauma prior to the onset of the epistaxis. Denies any fever, chills, cough or shortness of breath. - Related Data Allergies Allergy/AdvReac Type Severity Reaction Status Date / Time Penicillins Allergy Intermediate Respiratory Verified 05/15/20 19:10 Distress erythromycin base Allergy Rash Verified 05/15/20 19:10 Sulfa (Sulfonamide Allergy Rash Verified 05/15/20 19:10 Antibiotics) azithromycin AdvReac Vomiting Verified 05/15/20 19:10 codeine AdvReac Nausea and Verified 05/15/20 19:10 Vomiting diazepam [From Valium] AdvReac Disorientat Verified 05/15/20 19:10 ion oxybutynin AdvReac Nausea Verified 05/15/20 19:10 Home Meds: Home Meds metFORMIN [Glucophage] 1,000 mg PO BIDM 10/06/13 [History] Allopurinol [Zyloprim] 100 mg PO DAILY 10/15/15 [History] Lisinopril 40 mg PO DAILY 08/08/17 [History] atorvaSTATin [Lipitor] 40 mg PO DAILY 08/08/17 [History] Apixaban [Eliquis] 5 mg PO BID 09/04/18 [History] Aspirin [[place] Aspirin EC] 81 mg PO DAILY 10/09/19 [History] Gabapentin [Neurontin] 300 mg PO TID 10/09/19 [History] Isosorbide Mononitrate [Isosorbide Mononitrate ER] 30 mg PO DAILY 10/09/19 [History] Metoprolol Succinate 200 mg PO DAILY 10/09/19 [History] glipiZIDE [Glucotrol] 10 mg PO DAILY 10/09/19 [History] Magnesium 250 mg PO DAILY 10/21/19 [History] Acetaminophen/Caffeine [Excedrin Tension Headache] 1 tab PO ASDIRECTED PRN 10/23/19 [History] allopurinoL [Zyloprim] 100 mg PO DAILY 10/23/19 [History] Cholecalciferol (Vitamin D3) [Vitamin D3] 2,000 unit PO DAILY 04/18/20 [History] Digoxin [Digox] 125 mcg PO DAILY 04/18/20 [History] Omeprazole 20 mg PO DAILY 04/18/20 [History] Potassium Chloride [Klor-Con M20] 20 meq PO DAILY 04/18/20 [History] Furosemide 40 mg PO DAILY #30 tablet 04/21/20 [Rx] Past Medical History HEENT History: Reports: Cataract, Glaucoma, Impaired Vision Cardiovascular History: Reports: Afib, Heart Failure, High Cholesterol, Hypertension, [place], Other (See Below) Other Cardiovascular History: Mitral and tricuspid regurgitation Respiratory History: Reports: Asthma, COPD Gastrointestinal History: Reports: GERD Genitourinary History: Reports: Chronic Renal Insuffiency, Renal Disease 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: Musculoskeletal History: Reports: Osteoarthritis, Other (See Below) Other Musculoskeletal History: right hip pain Neurological History: Reports: CVA, Migraines Psychiatric History: Reports: None Endocrine/Metabolic History: Reports: Diabetes, Type II Hematologic History: Reports: Anticoagulation Therapy, B12 Deficiency Oncologic (Cancer) History: Reports: None Dermatologic History: Reports: None - Infectious Disease History Infectious Disease History: Reports: Chicken Pox, Measles, Mumps - Past Surgical History Head Surgeries/Procedures: Reports: None HEENT Surgical History: Reports: Cataract Surgery Cardiovascular Surgical History: Reports: Other (See Below) Other Cardiovascular Surgeries/Procedures: HEART CATHETER Respiratory Surgical History: Reports: None GI Surgical History: Reports: Appendectomy Female Surgical History: Reports: Endometrial Ablation, Hysterectomy Endocrine Surgical History: Reports: None Neurological Surgical History: Reports: None Musculoskeletal Surgical History: Reports: None Dermatological Surgical History: Reports: None Social & Family History - Family History Family Medical History: No Pertinent Family History - Tobacco Use Tobacco Use Status *Q: Never Tobacco User - Caffeine Use Caffeine Use: Reports: Coffee - Recreational Drug Use Recreational Drug Use: No ED ROS ENT - Review of Systems Review Of Systems: See Below Constitutional: Reports: No Symptoms HEENT: Reports: Nosebleed Respiratory: Reports: No Symptoms Cardiovascular: Reports: No Symptoms Endocrine: Reports: No Symptoms GI/Abdominal: Reports: No Symptoms : Reports: No Symptoms Musculoskeletal: Reports: No Symptoms Skin: Reports: No Symptoms Neurological: Reports: No Symptoms Psychiatric: Reports: No Symptoms Hematologic/Lymphatic: Reports: Easy Bleeding (Patient on Eliquis) Immunologic: Reports: No Symptoms ED EXAM, ENT - Physical Exam Exam: See Below Exam Limited By: No Limitations General Appearance: Alert, Anxious Eye Exam: Bilateral Eye: EOMI, PERRL Nose: Active Bleeding (Active bleeding from the left naris in the anterior septum. Oxymetazoline instilled into the left naris and I had the patient blow her nose to clear the nasal acids. There was an active site of bleeding in the anterior septum which was I felt to be too brisk for chemical cautery.). No: Nasal Deformity, Nasal Discharge, Septal Hematoma, Septal Perforation Mouth/Throat: Bleeding (Small amount of blood in the retropharynx from the nasal cavity.), Other (Fresh and dry blood on the lips and face.) Head: Atraumatic, Normocephalic Neck: Normal Inspection, Non-Tender Respiratory/Chest: No Respiratory Distress, Lungs Clear, Normal Breath Sounds Neurological: Alert, Oriented, Normal Cognition, No Motor/Sensory Deficits Psychiatric: Anxious ED ENT PROCEDURES - Epistaxis Procedure Indication: Uncontrolled Recent anticoagulants/antiplatlets: Yes Uncontrolled HTN: No Recent septal/nasal surgery: No Site of bleeding: Left Nare, Anterior Clearing of clots: Patient Blew Nose Topical Meds: Other (Oxymetazoline, tranexamic acid) Ice pack to area: No Anterior Packing: Inflatable Nasal Tampon (Soaked in tranexamic acid) Complications: No Course - Vital Signs Last Recorded V/S: Last Vital Signs Temp 36.8 C 05/15/20 19:03 Pulse 59 L 05/15/20 19:03 Resp 18 05/15/20 19:03 BP 130/67 05/15/20 19:03 Pulse Ox 95 05/15/20 19:03 - Orders/Labs/Meds Labs: Laboratory Tests 05/15/20 05/15/20 Range/Units 19:17 19:17 WBC 7.2 (4.5-11.0) K/uL RBC 4.41 (3.30-5.50) M/uL Hgb 12.3 (12.0-15.0) g/dL Hct 39.8 (36.0-48.0) % MCV 90 (80-98) fL MCH 28 (27-31) pg MCHC 31 L (32-36) % Plt Count 317 (150-400) K/uL Sodium 142 (140-148) mmol/L Potassium 4.8 (3.6-5.2) mmol/L Chloride 102 (100-108) mmol/L Carbon Dioxide 30 (21-32) mmol/L Anion Gap 9.9 (5.0-14.0) mmol/L BUN 24 H (7-18) mg/dL Creatinine 1.1 H (0.6-1.0) mg/dL Est Cr Clr Drug Dosing 27.35 mL/min Estimated GFR (MDRD) 47 L (>60) Glucose 90 (74-106) mg/dL Calcium 10.0 (8.5-10.1) mg/dL Meds: Medications Discontinued Medications Generic Name Dose Route Start Last Admin Trade Name Freq PRN Reason Stop Dose Admin Oxymetazoline HCl 0.5 ml 05/15/20 18:51 05/15/20 18:59 Nasal Decongestant [place] KARRIE 05/15/20 18:52 2 spray ONETIME ONE Administration Tranexamic Acid 500 mg 05/15/20 18:53 05/15/20 18:59 Cyklokapron TOP 05/15/20 18:54 500 mg ONETIME ONE Administration - Re-Assessments/Exams Free Text/Narrative Re-Assessment/Exam: 05/15/20 20:02 reviewed the patient's labs including CBC and basic metabolic profile. These look to be within normal parameters for the patient. Her creatinine is 1.1 but this seems to be her baseline. Patient was observed for nearly an hour after instillation of the hemostatic balloon nasal tampon with no further bleeding. At this time I believe she is suitable for discharge home. We will have her follow-up with her primary care provider in 5 days for removal of the Rhino Rocket. I did review them indications to return to the ED for reevaluation. All questions were answered prior to discharge. Departure - Departure Time of Disposition: 20:05 Disposition: Home, Self-Care 01 Condition: Good Clinical Impression: Anterior epistaxis - Discharge Information *PRESCRIPTION DRUG MONITORING PROGRAM REVIEWED*: Not Applicable *COPY OF PRESCRIPTION DRUG MONITORING REPORT IN PATIENT [place]: Not Applicable Instructions: Nosebleed, [id number] Referrals: María Fried PA [Primary Care Provider] - Forms: ED Department Discharge Care Plan Goals: Aloe up with your primary care provider in 5 days to have the Rhino Rocket removed. Return to the ED should you develop significant bleeding. Sepsis Event Note (ED) - Evaluation Sepsis Screening Result: No Definite Risk - Focused Exam Vital Signs: Vital Signs Temp Pulse Resp BP Pulse Ox 05/15/20 19:03 36.8 C 59 L 18 130/67 95 - Problem List & Annotations (1) Anterior epistaxis SNOMED Code(s): 701086295 Code(s): R04.0 - EPISTAXIS Status: Acute Priority: High Current Visit: Yes - Problem List Review Problem List Initiated/Reviewed/Updated: Yes
== END 2020-05-15 20:31 | disposition home or self-care (01) ==
LOC: JP.ED 18:48
DX: R04.0 Epistaxis (principal); I13.0 Hypertensive heart and chronic kidney disease with heart failure and stage 1 through stage 4 chronic kidney disease, or unspecified chronic kidney disease; I50.9 Heart failure, unspecified; N18.9 Chronic kidney disease, unspecified; I48.91 Unspecified atrial fibrillation; E78.00 Pure hypercholesterolemia, unspecified; I25.2 Old myocardial infarction; K21.9 Gastro-esophageal reflux disease without esophagitis; E11.22 Type 2 diabetes mellitus with diabetic chronic kidney disease; J44.9 Chronic obstructive pulmonary disease, unspecified; Z86.73 Personal history of transient ischemic attack (TIA), and cerebral infarction without residual deficits; Z88.0 Allergy status to penicillin; Z88.2 Allergy status to sulfonamides; Z88.1 Allergy status to other antibiotic agents; Z88.5 Allergy status to narcotic agent; Z79.01 Long term (current) use of anticoagulants; Z79.82 Long term (current) use of aspirin; Z79.899 Other long term (current) drug therapy; Z79.84 Long term (current) use of oral hypoglycemic drugs
CPT/HCPCS: 30901; 36415; 80048; 85027; 99282; 99283; A9270; 30903

== ENCOUNTER 2020-05-22 23:30 | Inpatient (IN) | payer BC, MEDICARE ==
--- NOTE | 2020-05-22 23:54 | EDM.PDOC ---
ED HPI GENERAL MEDICAL PROBLEM - General Stated Complaint: MEDICAL VIA [facility] Time Seen by Provider: 05/22/20 23:30 Source of Information: Reports: EMS History Limitations: Reports: Altered Mental Status, Uncooperative - History of Present Illness INITIAL COMMENTS - FREE TEXT/NARRATIVE: 84-year-old female brought in by EMS due to fatigue, weakness, decreased alertness. She received her Covid vaccine a couple days ago. No fever. She had a recent hospitalization with lower extremity edema and atrial flutter with rapid response. She is arousable but not answering questions appropriately. She has known dementia. She received her second Covid vaccination 4 days ago, the day after had several bouts of emesis but this morning she seemed much better. She ambulated without any assistance to the bathroom which is unusual for her. However later in the afternoon her mental status changed, she became less responsive and unable to communicate. She had another episode of emesis. Onset: Unknown/Unsure Associated Symptoms: Reports: Confusion, Weakness - Related Data Allergies Allergy/AdvReac Type Severity Reaction Status Date / Time Penicillins Allergy Intermediate Respiratory Verified 05/22/20 23:54 Distress erythromycin base Allergy Rash Verified 05/22/20 23:54 Sulfa (Sulfonamide Allergy Rash Verified 05/22/20 23:54 Antibiotics) azithromycin AdvReac Vomiting Verified 05/22/20 23:54 codeine AdvReac Nausea and Verified 05/22/20 23:54 Vomiting diazepam [From Valium] AdvReac Disorientat Verified 05/22/20 23:54 ion oxybutynin AdvReac Nausea Verified 05/22/20 23:54 Home Meds: Home Meds metFORMIN [Glucophage] 1,000 mg PO BIDM 10/06/13 [History] Allopurinol [Zyloprim] 100 mg PO DAILY 10/15/15 [History] Lisinopril 40 mg PO DAILY 08/08/17 [History] atorvaSTATin [Lipitor] 40 mg PO DAILY 08/08/17 [History] Apixaban [Eliquis] 5 mg PO BID 09/04/18 [History] Aspirin [[place] Aspirin EC] 81 mg PO DAILY 10/09/19 [History] Gabapentin [Neurontin] 300 mg PO TID 10/09/19 [History] Isosorbide Mononitrate [Isosorbide Mononitrate ER] 30 mg PO DAILY 10/09/19 [History] Metoprolol Succinate 200 mg PO DAILY 10/09/19 [History] glipiZIDE [Glucotrol] 10 mg PO DAILY 10/09/19 [History] Magnesium 250 mg PO DAILY 10/21/19 [History] Acetaminophen/Caffeine [Excedrin Tension Headache] 1 tab PO ASDIRECTED PRN 10/23/19 [History] allopurinoL [Zyloprim] 100 mg PO DAILY 10/23/19 [History] Cholecalciferol (Vitamin D3) [Vitamin D3] 2,000 unit PO DAILY 04/18/20 [History] Digoxin [Digox] 125 mcg PO DAILY 04/18/20 [History] Omeprazole 20 mg PO DAILY 04/18/20 [History] Potassium Chloride [Klor-Con M20] 20 meq PO DAILY 04/18/20 [History] Furosemide 40 mg PO DAILY #30 tablet 04/21/20 [Rx] Past Medical History HEENT History: Reports: Cataract, Glaucoma, Impaired Vision Cardiovascular History: Reports: Afib, Heart Failure, High Cholesterol, Hypertension, [place], Other (See Below) Other Cardiovascular History: Mitral and tricuspid regurgitation Respiratory History: Reports: Asthma, COPD Gastrointestinal History: Reports: GERD Genitourinary History: Reports: Chronic Renal Insuffiency, Renal Disease 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: Musculoskeletal History: Reports: Osteoarthritis, Other (See Below) Other Musculoskeletal History: right hip pain Neurological History: Reports: CVA, Migraines Psychiatric History: Reports: None Endocrine/Metabolic History: Reports: Diabetes, Type II Hematologic History: Reports: Anticoagulation Therapy, B12 Deficiency Oncologic (Cancer) History: Reports: None Dermatologic History: Reports: None - Infectious Disease History Infectious Disease History: Reports: Chicken Pox, Measles, Mumps - Past Surgical History Head Surgeries/Procedures: Reports: None HEENT Surgical History: Reports: Cataract Surgery Cardiovascular Surgical History: Reports: Other (See Below) Other Cardiovascular Surgeries/Procedures: HEART CATHETER Respiratory Surgical History: Reports: None GI Surgical History: Reports: Appendectomy Female Surgical History: Reports: Endometrial Ablation, Hysterectomy Endocrine Surgical History: Reports: None Neurological Surgical History: Reports: None Musculoskeletal Surgical History: Reports: None Dermatological Surgical History: Reports: None Social & Family History - Family History Family Medical History: No Pertinent Family History - Caffeine Use Caffeine Use: Reports: Coffee ED ROS GENERAL - Review of Systems Review Of Systems: See Below (Patient unable to give a review of systems due to decreased alertness and mental status) ED EXAM, GENERAL - Physical Exam Exam: See Below Free Text/Narrative:: Patient is generally unkempt, covered in urine and malodorous. Exam Limited By: Physical Impairment General Appearance: Lethargic Eye Exam: Bilateral Eye: EOMI (No disconjugate gaze) Head: Atraumatic Respiratory/Chest: Lungs Clear Cardiovascular: Regular Rate, Rhythm GI/Abdominal: Soft, Other (Not reacting with tenderness when palpating the abdomen) Extremities: No Pedal Edema (No significant lower extremity edema) Neurological: Confused, Disoriented, Slow to Respond Psychiatric: Flat Affect Skin Exam: Warm, Diaphoretic Course - Vital Signs Last Recorded V/S: Last Vital Signs Temp 98.1 F 05/23/20 01:33 Pulse 65 05/23/20 01:33 Resp 18 05/23/20 01:33 BP 122/84 05/23/20 01:33 Pulse Ox 89 L 05/23/20 01:33 - Orders/Labs/Meds Orders: Medication Orders Atorvastatin Calcium (Lipitor) 40 mg PO DAILY ARJUN Digoxin (Lanoxin) 125 mcg PO DAILY [facility] Furosemide (Lasix) 40 mg PO DAILY [facility] Gabapentin (Neurontin) 300 mg PO TID [facility] Sodium Chloride (Normal Saline) 1,000 mls @ 125 mls/hr IV ASDIRECTED [facility] Isosorbide Mononitrate (Imdur) 30 mg PO DAILY [facility] Lisinopril (Prinivil) 40 mg PO DAILY [facility] Metoprolol Succinate (Toprol Xl) 200 mg PO DAILY [facility] Non-Formulary Medication (Magnesium [Magnesium]) 250 mg PO DAILY [facility] Ondansetron HCl (Zofran) 4 mg IV Q4H PRN PRN Reason: Nausea/Vomiting Pantoprazole Sodium (Protonix) 40 mg PO ACBREAKFAST [facility] Potassium Chloride (Klor-Con M20) 20 meq PO DAILY ARJUN Labs: Laboratory Tests 05/22/20 05/22/20 05/22/20 Range/Units 23:54 23:55 23:55 WBC 8.1 (4.5-11.0) K/uL RBC 4.93 (3.30-5.50) M/uL Hgb 13.8 (12.0-15.0) g/dL Hct 43.6 (36.0-48.0) % MCV 88 (80-98) fL MCH 28 (27-31) pg MCHC 32 (32-36) % Plt Count 225 (150-400) K/uL Neut % (Auto) 77 H (36-66) % Lymph % (Auto) 15 L (24-44) % [place] % (Auto) 7 H (2-6) % Eos % (Auto) 0 L (2-4) % Baso % (Auto) 0 (0-1) % Sodium 144 (140-148) mmol/L Potassium 4.2 (3.6-5.2) mmol/L Chloride 101 (100-108) mmol/L Carbon Dioxide 29 (21-32) mmol/L Anion Gap 14.1 H (5.0-14.0) mmol/L BUN 34 H (7-18) mg/dL Creatinine 1.5 H (0.6-1.0) mg/dL Est Cr Clr Drug Dosing 22.08 mL/min Estimated GFR (MDRD) 33 L (>60) Glucose 123 H (74-106) mg/dL Lactic Acid (0.4-2.0) mmol/L Calcium 9.7 (8.5-10.1) mg/dL Total Bilirubin 0.6 D (0.2-1.0) mg/dL AST 18 (15-37) U/L ALT 23 (12-78) U/L Alkaline Phosphatase 109 (46-116) U/L Troponin I 0.071 H* (0.000-0.056) ng/mL Total Protein 7.8 (6.4-8.2) g/dL Albumin 4.2 (3.4-5.0) g/dL Globulin 3.6 H (2.3-3.5) g/dL Albumin/Globulin Ratio 1.2 (1.2-2.2) Urine Color Yellow (YELLOW) Urine Appearance Clear (CLEAR) Urine pH 5.0 (5.0-8.0) Ur Specific [place] 1.020 (1.008-1.030) Urine Protein 100 H (NEGATIVE) mg/dL Urine Glucose (UA) Negative (NEGATIVE) mg/dL Urine Ketones 15 H (NEGATIVE) mg/dL Urine Occult Blood Negative (NEGATIVE) Urine Nitrite Negative (NEGATIVE) Urine Bilirubin Negative (NEGATIVE) Urine Urobilinogen 0.2 (0.2-1.0) EU/dL Ur Leukocyte Esterase Negative (NEGATIVE) Urine RBC 0-5 (0-5) Urine WBC 0-5 (0-5) Ur Epithelial Cells Few Amorphous Sediment Moderate Urine Bacteria Few Urine Mucus Not seen 05/22/20 Range/Units 23:55 WBC (4.5-11.0) K/uL RBC (3.30-5.50) M/uL Hgb (12.0-15.0) g/dL Hct (36.0-48.0) % MCV (80-98) fL MCH (27-31) pg MCHC (32-36) % Plt Count (150-400) K/uL Neut % (Auto) (36-66) % Lymph % (Auto) (24-44) % [place] % (Auto) (2-6) % Eos % (Auto) (2-4) % Baso % (Auto) (0-1) % Sodium (140-148) mmol/L Potassium (3.6-5.2) mmol/L Chloride (100-108) mmol/L Carbon Dioxide (21-32) mmol/L Anion Gap (5.0-14.0) mmol/L BUN (7-18) mg/dL Creatinine (0.6-1.0) mg/dL Est Cr Clr Drug Dosing mL/min Estimated GFR (MDRD) (>60) Glucose (74-106) mg/dL Lactic Acid 1.8 (0.4-2.0) mmol/L Calcium (8.5-10.1) mg/dL Total Bilirubin (0.2-1.0) mg/dL AST (15-37) U/L ALT (12-78) U/L Alkaline Phosphatase (46-116) U/L Troponin I (0.000-0.056) ng/mL Total Protein (6.4-8.2) g/dL Albumin (3.4-5.0) g/dL Globulin (2.3-3.5) g/dL Albumin/Globulin Ratio (1.2-2.2) Urine Color (YELLOW) Urine Appearance (CLEAR) Urine pH (5.0-8.0) Ur Specific [place] (1.008-1.030) Urine Protein (NEGATIVE) mg/dL Urine Glucose (UA) (NEGATIVE) mg/dL Urine Ketones (NEGATIVE) mg/dL Urine Occult Blood (NEGATIVE) Urine Nitrite (NEGATIVE) Urine Bilirubin (NEGATIVE) Urine Urobilinogen (0.2-1.0) EU/dL Ur Leukocyte Esterase (NEGATIVE) Urine RBC (0-5) Urine WBC (0-5) Ur Epithelial Cells Amorphous Sediment Urine Bacteria Urine Mucus Meds: Medications Generic Name Dose Route Start Last Admin Trade Name Loli PRN Reason Stop Dose Admin Atorvastatin Calcium 40 mg 05/23/20 09:00 Lipitor PO DAILY [facility] Digoxin 125 mcg 05/23/20 09:00 Lanoxin PO DAILY ARJ[facility] Furosemide 40 mg 05/23/20 09:00 Lasix PO DAILY [facility] Gabapentin 300 mg 05/23/20 09:00 Neurontin PO TID [facility] Sodium Chloride 1,000 mls @ 125 mls/hr 05/23/20 01:45 Normal Saline IV ASDIRECTED [facility] Isosorbide Mononitrate 30 mg 05/23/20 09:00 Imdur PO DAILY [facility] Lisinopril 40 mg 05/23/20 09:00 Prinivil PO DAILY [facility] Metoprolol Succinate 200 mg 05/23/20 09:00 Toprol Xl PO DAILY [facility] Non-Formulary Medication 250 mg 05/23/20 09:00 Magnesium [Magnesium] PO DAILY [facility] Ondansetron HCl 4 mg 05/23/20 01:33 Zofran IV Q4H PRN Nausea/Vomiting Pantoprazole Sodium 40 mg 05/23/20 07:30 Protonix PO ACBREAKFAST [facility] Potassium Chloride 20 meq 05/23/20 09:00 Klor-Con M20 PO DAILY [facility] Discontinued Medications Generic Name Dose Route Start Last Admin Trade Name Loli PRN Reason Stop Dose Admin Ondansetron HCl 4 mg 05/23/20 00:21 05/23/20 00:27 Zofran IVPUSH 05/23/20 00:22 4 mg ONETIME ONE Administration - Re-Assessments/Exams Free Text/Narrative Re-Assessment/Exam: 05/22/20 23:55 A mini cath UA was obtained. CBC, CMP, lactic acid, CK and troponin also obtained. Head CT without contrast was ordered. 05/23/20 00:27 CT the head shows an abnormality in the right frontal lobe, the patient report pending. CBC and lactic acid are normal. Troponin did return slightly high at 0.07. 05/23/20 00:28 GFR is 33, creatinine 1.5. Sodium potassium chloride all normal. 05/23/20 00:35 UA showed no evidence of infection, all her LFTs are normal. 05/23/20 00:52 FINDINGS: Hyperattenuating lesion measuring 7 x 6 x 6 mm within the right frontal subcortical white matter (series 2, image 15; series 6, image 20), with surrounding hypoattenuation. No extra-axial collection. Extensive periventricular and deep white matter hypoattenuation, likely reflecting advan lucia chronic small vessel ischemic changes. No mass effect or midline shift. Orbits and cranium intact. Paranasal sinuses and mastoid air cells are clear. Impression: Subcentimeter focus of hyperattenuation within the right frontal lobe is concerning for hemorrhage within a larger age-indeterminate infarct. Correlation with prior outside imaging may be beneficial to establish temporal etiology. Findings were discussed with her son, he agreed to just have comfort cares and no aggressive stroke treatment. Dr. Burgos kindly agreed to come and see the patient for admission. Departure - Departure Time of Disposition: 01:52 Disposition: Admitted As Inpatient 66 Clinical Impression: Cerebral hemorrhage with cognitive deficits - Discharge Information Sepsis Event Note (ED) - Focused Exam Vital Signs: Vital Signs Temp Pulse Resp BP Pulse Ox 05/23/20 01:20 63 16 121/58 L 95 05/23/20 00:50 60 16 122/60 93 L 05/23/20 00:20 65 94 H 155/72 H 05/22/20 23:51 97.6 F 69 16 162/82 H 97
[2020-05-23] MEDS ORDERED: Ondansetron 4 MG/2 ML SDV IVPUSH ONE (00:21)
--- NOTE | 2020-05-23 00:49 | CRLCT ---
INDICATION: Altered mental status. TECHNIQUE: Head CT without intravenous contrast, stroke protocol. Coronal and sagittal reformats. COMPARISON: Head CT 09/03/2008. FINDINGS: Hyperattenuating lesion measuring 7 x 6 x 6 mm within the right frontal subcortical white matter (series 2, image 15; series 6, image 20), with surrounding hypoattenuation. No extra-axial collection. Extensive periventricular and deep white matter hypoattenuation, likely reflecting advanced chronic small vessel ischemic changes. No mass effect or midline shift. Orbits and cranium intact. Paranasal sinuses and mastoid air cells are clear. Impression: Subcentimeter focus of hyperattenuation within the right frontal lobe is concerning for hemorrhage within a larger age-indeterminate infarct. Correlation with prior outside imaging may be beneficial to establish temporal etiology. Case discussed with Dr. Charli Cuba on 05/23/2020 at 12:40 a.m. Dictated by Telly Granados MD @ 05/23/2020 12:43:59 AM Please note that all CT scans at this facility use dose modulation, iterative reconstruction, and/or weight-based dosing when appropriate to reduce radiation dose to as low as reasonably achievable. Dictated by: Telly Granados MD @ 05/23/2020 00:49:07 (Electronically Signed)
--- NOTE | 2020-05-23 03:31 | HP ---
CHIEF COMPLAINT: Lethargy. HISTORY OF PRESENT ILLNESS: An 84-year-old who was in the hospital about a month ago with acute on chronic congestive heart failure with atrial fibrillation with rapid ventricular response, was treated. I believe that she went to the alf for a short time afterwards, but has been with her son. It sounds like she has needed assistance to get around, but this morning was able to go to the bathroom on her own, which was surprising. Then about noon, became more and more confused and lethargic and not able to really take care of herself or do anything. She was brought in for further evaluation and workup showed a right frontal lobe area of hyperattenuation that was concerning for hemorrhage with large indeterminate infarct. Emergency room doctor did talk to the son. With her age and underlying medical problems, did not think there was really anything aggressive that could be done as far as shipping her to [place], and son wanted her just treated here, did make her DNR/DNI. I was asked to admit the patient for further evaluation and treatment. When trying to communicate with the patient, she will answer questions slightly but really not appropriately. The best I can tell she denied any pain. PAST MEDICAL HISTORY: 1. Recent hospitalization for acute on chronic congestive heart failure with rapid ventricular atrial fibrillation. 2. History of cataract, glaucoma. 3. Essential hypertension. 4. Myocardial infarction in the past. 5. Hyperlipidemia. 6. Asthma. 7. COPD. 8. Gastroesophageal reflux disease. 9. Chronic kidney disease. 10.Osteoarthritis. 11.Stroke in the past. 12.History of migraines. 13.Type 2 diabetes mellitus. 14.History of dementia. 15.Chickenpox, measles, mumps in her past. MEDICATIONS: 1. Excedrin Tension Headache p.r.n. 2. Allopurinol 100 mg daily. 3. Eliquis 5 mg b.i.d. 4. Aspirin 81 mg daily. 5. Atorvastatin 40 mg daily. 6. Vitamin D3 2000 units daily. 7. Digoxin 0.125 mg daily. 8. Furosemide 40 mg daily. 9. Gabapentin 300 mg t.i.d. 10.Glipizide 10 mg daily. 11.Isosorbide 30 mg daily. 12.Lisinopril 40 mg daily. 13.Magnesium 250 mg daily. 14.Metformin 1000 mg b.i.d. 15.Metoprolol 200 mg daily extended release. 16.Omeprazole 20 mg daily. 17.Potassium chloride 20 mEq daily. ALLERGIES: PENICILLIN, ERYTHROMYCIN, SULFA, CODEINE, DIAZEPAM. SOCIAL HISTORY: No tobacco in the past. No recent alcohol use. FAMILY HISTORY: Unknown. Unable to get from her. REVIEW OF SYSTEMS: I am not able to get any response to questions other than she denied pain. Otherwise, really unable to understand. OBJECTIVE: VITAL SIGNS: Weight 65 kg, temperature 36.4, pulse 69, blood pressure 162/82, now is 121/58, respirations 16, O2 saturation 97% on room air. HEENT: Dry mucous membranes in her mouth. NECK: Supple. No adenopathy, thyromegaly, JVD, carotid bruits. LUNGS: Clear. HEART: Irregularly regular with good rate control. ABDOMEN: Soft. Does not appear to cause any tenderness. There is no mass or organomegaly palpated. EXTREMITIES: No edema. Sounds like she did have quite profound edema a month ago. Pedal pulses are palpable and equal bilaterally. NEUROLOGIC: Really not able to do much of a neuro exam since she does not really respond. She does respond to pain. SKIN: Negative. DIAGNOSTIC DATA: CT scan did show a subcentimeter focus of hyperattenuation within the right frontal lobe concerning for hemorrhage with a larger age indeterminate infarct. LABORATORY DATA: White count 8.1, hemoglobin 13.8, platelets 225,000. Sodium 144, potassium 4.2, chloride 101, BUN is 34, creatinine 1.5, glucose 123. Lactic acid was 1.8. Liver functions were normal. Troponin 0.071, which she has been in the past with her previous hospitalization. Urinalysis was unremarkable. ASSESSMENT: 1. Cerebral hemorrhage. We will hold her aspirin and Eliquis. It sounds like son did make her DNR/DNI at this point and wanted her admitted here. We will admit her, on IV fluids since I do not know that she is able to take anything orally at this point, but we will re-evaluate in the morning. Transfer care to the hospitalist service. The patient was admitted inpatient, anticipate more than 2 midnight stays. 2. Recent hospitalization for acute on chronic congestive heart failure with atrial fibrillation with rapid ventricular response, which she responded well. 3. History of dementia, which has progressed apparently. 4. Type 2 diabetes mellitus. 5. Essential hypertension. Otis Burgos MD /[id number]
[2020-05-23] MEDS ORDERED: Non-Formulary Medication 1 Each (Magnesium [Magnesium] 250 MG) PO SCH (09:00)
[2020-05-23] MEDS ORDERED: Magnesium Oxide 400 MG Tab PO SCH (09:00)
[2020-05-23] MEDS ORDERED: Non-Formulary Medication 1 Each (Omeprazole [Omeprazole] 20 MG) PO SCH (09:00)
[2020-05-23] MEDS: Sodium Chloride 0.9% 1,000 ML IV SCH ×2 (10:09→18:36)
[2020-05-23] MEDS: Isosorbide Mononitrate 30 MG Tab.ER PO SCH (10:46)
[2020-05-23] MEDS: atorvaSTATin 20 MG Tab PO SCH (10:46)
[2020-05-23] MEDS: Potassium Chloride 20 MEQ Tab.ER PO SCH (10:46)
[2020-05-23] MEDS: Pantoprazole 40 MG Tab.CR PO SCH (10:46)
[2020-05-23] MEDS: Furosemide 40 MG Tab PO SCH (10:46)
[2020-05-23] MEDS: Metoprolol Succinate 50 MG Tab.ER PO SCH (10:47)
[2020-05-23] MEDS: Gabapentin 300 MG Cap PO SCH ×3 (10:47→21:48)
[2020-05-23] MEDS: Magnesium Oxide 400 MG Tab PO SCH (10:47)
[2020-05-23] MEDS: Lisinopril 20 MG Tab PO SCH (10:47)
[2020-05-23] MEDS: Digoxin 125 MCG Tab PO SCH (14:14)
[2020-05-23] MEDS: Ondansetron 4 MG/2 ML SDV IV PRN (16:48)
[2020-05-24] MEDS: Sodium Chloride 0.9% 1,000 ML IV SCH ×3 (02:42→18:24)
[2020-05-24] MEDS: Isosorbide Mononitrate 30 MG Tab.ER PO SCH (08:00)
[2020-05-24] MEDS: Metoprolol Succinate 50 MG Tab.ER PO SCH (08:00)
[2020-05-24] MEDS: Lisinopril 20 MG Tab PO SCH (08:00)
[2020-05-24] MEDS: Furosemide 40 MG Tab PO SCH (08:01)
[2020-05-24] MEDS: atorvaSTATin 20 MG Tab PO SCH (08:01)
[2020-05-24] MEDS: Gabapentin 300 MG Cap PO SCH ×3 (08:07→20:32)
[2020-05-24] MEDS: Ondansetron 4 MG/2 ML SDV IV PRN ×2 (08:11→12:13)
[2020-05-24] MEDS: Pantoprazole 40 MG Tab.CR PO SCH (08:15)
[2020-05-24] MEDS: Potassium Chloride 20 MEQ Tab.ER PO SCH (08:15)
[2020-05-24] MEDS: Magnesium Oxide 400 MG Tab PO SCH (08:15)
[2020-05-24] MEDS: Digoxin 125 MCG Tab PO SCH (14:17)
--- NOTE | 2020-05-24 16:36 | PCM.PN ---
- General Info Date of Service: 05/24/20 Admission Dx/Problem (Free Text): Cerebral hemorrhage Subjective Update: 84-year-old female admitted last evening with altered mental status. CT scan sh owed findings consistent with new cerebral hemorrhage on top of region of prior infarct. The patient was initially quite altered and unable to interact well. This morning, she is able to state her name as well as the date. There are no focal neurologic deficits noted. There was a conference held with the patient, her son present, and her daughter over the phone. It was stated that the patient can no longer be properly cared for by her son. Given her improved mentation and ability to interact, orders are placed for physical therapy, Occupational Therapy, and speech therapy. It was determined that based on these therapy assessment, the patient would perhaps be discharged to rehab versus long-term care. There have been prior discussions of possible hospice though the son and daughter not yet ready for that. Functional Status: Reports: Pain Controlled - Review of Systems General: Reports: No Symptoms HEENT: Reports: No Symptoms Pulmonary: Reports: No Symptoms Cardiovascular: Reports: No Symptoms Gastrointestinal: Reports: No Symptoms Genitourinary: Reports: No Symptoms Musculoskeletal: Reports: No Symptoms Skin: Reports: No Symptoms Neurological: Reports: No Symptoms Psychiatric: Reports: No Symptoms - Patient Data Vitals - Most Recent: Last Vital Signs Temp 96.2 F L 05/24/20 14:15 Pulse 57 L 05/24/20 14:15 Resp 14 05/24/20 14:15 BP 144/61 H 05/24/20 14:15 Pulse Ox 97 05/24/20 14:15 Weight - Most Recent: 121 lb I&O - Last 24 Hours: Intake & Output 05/24/20 05/24/20 05/24/20 06:59 14:59 22:59 Intake Total 1250 706 Balance 1250 706 Med Orders - Current: Current Medications Atorvastatin Calcium (Lipitor) 40 mg PO DAILY [facility] Last Admin: 05/24/20 08:01 Dose: 40 mg Documented by: Digoxin (Lanoxin) 125 mcg PO DAILY@1300 [facility] Last Admin: 05/24/20 14:17 Dose: Not Given Documented by: Furosemide (Lasix) 40 mg PO DAILY [facility] Last Admin: 05/24/20 08:01 Dose: 40 mg Documented by: Gabapentin (Neurontin) 300 mg PO TID [facility] Last Admin: 05/24/20 14:17 Dose: Not Given Documented by: Sodium Chloride (Normal Saline) 1,000 mls @ 125 mls/hr IV ASDIRECTED [facility] Last Admin: 05/24/20 10:19 Dose: 125 mls/hr Documented by: Isosorbide Mononitrate (Imdur) 30 mg PO DAILY [facility] Last Admin: 05/24/20 08:00 Dose: 30 mg Documented by: Lisinopril (Prinivil) 40 mg PO DAILY [facility] Last Admin: 05/24/20 08:00 Dose: 40 mg Documented by: Magnesium Oxide (Magnesium Oxide) 400 mg PO DAILY [facility] Last Admin: 05/24/20 08:15 Dose: Not Given Documented by: Metoprolol Succinate (Toprol Xl) 200 mg PO DAILY [facility] Last Admin: 05/24/20 08:00 Dose: 200 mg Documented by: Ondansetron HCl (Ondansetron 4 Mg/2 Ml Sdv) 4 mg IV Q4H PRN PRN Reason: Nausea/Vomiting Last Admin: 05/24/20 12:13 Dose: 4 mg Documented by: Pantoprazole Sodium (Protonix) 40 mg PO ACBREAKFAST [facility] Last Admin: 05/24/20 08:15 Dose: Not Given Documented by: Potassium Chloride (Klor-Con M20) 20 meq PO DAILY [facility] Last Admin: 05/24/20 08:15 Dose: Not Given Documented by: Discontinued Medications Magnesium Oxide (Magnesium Oxide) 200 mg PO DAILY [facility] Ondansetron HCl (Zofran) 4 mg IVPUSH ONETIME ONE Stop: 05/23/20 00:22 Last Admin: 05/23/20 00:27 Dose: 4 mg Documented by: - Exam General: Alert, Oriented, Cooperative HEENT: EOMI Neck: Supple Lungs: Clear to Auscultation Cardiovascular: Regular Rate, Irregular Rhythm. No: Tachycardia GI/Abdominal Exam: Soft, Non-Tender Extremities: Normal Inspection Skin: Warm, Dry Neurological: No New Focal Deficit - Patient Data Result Diagrams: 05/22/20 23:55 05/22/20 23:55 Sepsis Event Note - Evaluation Sepsis Screening Result: No Definite Risk - Focused Exam Vital Signs: Vital Signs Temp Pulse Pulse Resp BP BP Pulse Ox 05/24/20 14:15 96.2 F L 57 L 14 144/61 H 97 05/24/20 10:34 96.8 F L 56 L 14 152/65 H 96 05/24/20 08:00 60 187/50 H 05/24/20 07:00 96.4 F L 60 16 187/50 H 98 - Problem List & Annotations (1) Cerebral hemorrhage SNOMED Code(s): 945750957 Code(s): I61.9 - NONTRAUMATIC INTRACEREBRAL HEMORRHAGE, UNSPECIFIED Status: Acute Current Visit: Yes Annotation/Comment:: Much more interactive today and may be a therapy candidate. Requested PT/OT, speech therapy as above. Based on their assessments, tentative plan for discharge to [facility] in the next 1 to 2 days. Patient's son and daughter advised that symptoms may progress and at that point could consider comfort measures. Continue antihypertensive medications to keep systolic blood pressure less than 185. (2) Atrial fibrillation SNOMED Code(s): 88915613 Code(s): I48.91 - UNSPECIFIED ATRIAL FIBRILLATION Status: Chronic Priority: High Current Visit: No Qualifiers: Atrial fibrillation type: longstanding persistent Qualified Code(s): I48.11 - Longstanding persistent atrial fibrillation Annotation/Comment:: Continue to hold Eliquis in the setting of her bleed. Anticoagulation will need to be discontinued indefinitely. (3) CHF (congestive heart failure) SNOMED Code(s): 04262711 Code(s): I50.9 - HEART FAILURE, UNSPECIFIED Status: Chronic Priority: High Current Visit: No Qualifiers: Heart failure type: combined systolic and diastolic Heart failure chronicity: acute on chronic Qualified Code(s): I50.43 - Acute on chronic combined systolic (congestive) and diastolic (congestive) heart failure (4) CKD (chronic kidney disease) stage 3, GFR 30-59 ml/min SNOMED Code(s): 481345397 Code(s): N18.3 - CHRONIC KIDNEY DISEASE, STAGE 3 (MODERATE) * DO NOT USE * Status: Chronic Priority: High Current Visit: No Qualifiers: Chronic kidney disease stage 3 subtype: stage 3b (GFR 30-44) Qualified Code(s): N18.32 - Chronic kidney disease, stage 3b (5) Diabetes mellitus type II, controlled SNOMED Code(s): 62618942, 804917710 Code(s): E11.9 - TYPE 2 DIABETES MELLITUS WITHOUT COMPLICATIONS Status: Chronic Current Visit: No Qualifiers: Diabetes mellitus intermediate insulin use: without intermediate use Diabetes mellitus complication status: with unspecified complications Qualified Code(s): E11.8 - Type 2 diabetes mellitus with unspecified complications Annotation/Comment:: Oral medications held. Requested twice daily Accu-Cheks. We will increase frequency of Accu-Cheks and add sliding scale insulin if blood sugars are acutely elevated. - Problem List Review Problem List Initiated/Reviewed/Updated: Yes - My Orders Last 24 Hours: My Active Orders 05/24/20 08:40 Consult to Speech Language Pathology [IT COMMUNICATIONS SPECIALIST Evaluation and Treatment] [CONS] Routine PT Evaluation and Treatment [CONS] Routine 05/24/20 08:41 OT Evaluation and Treatment [CONS] Routine
[2020-05-25] MEDS: Sodium Chloride 0.9% 1,000 ML IV SCH ×2 (02:25→10:27)
[2020-05-25] MEDS: Pantoprazole 40 MG Tab.CR PO SCH (07:43)
[2020-05-25] MEDS: Gabapentin 300 MG Cap PO SCH (09:29)
[2020-05-25] MEDS: Furosemide 40 MG Tab PO SCH (09:29)
[2020-05-25] MEDS: Lisinopril 20 MG Tab PO SCH (09:29)
[2020-05-25] MEDS: Metoprolol Succinate 50 MG Tab.ER PO SCH (09:54)
[2020-05-25] MEDS: Magnesium Oxide 400 MG Tab PO SCH (10:01)
[2020-05-25] MEDS: Isosorbide Mononitrate 30 MG Tab.ER PO SCH (10:02)
[2020-05-25] MEDS: atorvaSTATin 20 MG Tab PO SCH (10:07)
[2020-05-25] MEDS: Potassium Chloride 20 MEQ Tab.ER PO SCH (10:10)
--- NOTE | 2020-05-25 11:14 | PCM.DCSUM1 ---
Discharge Summary - Hospital Course Brief History: 84-year-old female admitted for further evaluation and treatment following small cerebral hemorrhage. Diagnosis: Stroke: Yes Modified Marcellus Scale: Mod.Disablility Requiring Some Help,Able to Walk Without Assistance Modified Marcellus Scale Score: 3 - Discharge Data Discharge Date: 05/25/20 Discharge Disposition: DC/Tfer to SNF 03 Condition: Fair - Referral to Home Health Primary Care Physician: DEISI Jennings - Discharge Diagnosis/Problem(s) (1) Cerebral hemorrhage SNOMED Code(s): 219906782 ICD Code: I61.9 - NONTRAUMATIC INTRACEREBRAL HEMORRHAGE, UNSPECIFIED S tatus: Acute Current Visit: Yes Problem Details: Patient presented with altered mentation though was subsequently able to tolerate and would be a candidate for PT/OT, speech therapy. The patient will likely require long-term care and if decompensates from a symptomatic standpoint, would be a candidate for palliative measures. (2) Atrial fibrillation SNOMED Code(s): 30142566 ICD Code: I48.91 - UNSPECIFIED ATRIAL FIBRILLATION Status: Chronic Priority: High Current Visit: No Problem Details: Eliquis discontinued with patient's cerebral hemorrhage. Qualifiers: Atrial fibrillation type: longstanding persistent Qualified Code(s): I48.11 - Longstanding persistent atrial fibrillation (3) CHF (congestive heart failure) SNOMED Code(s): 28071383 ICD Code: I50.9 - HEART FAILURE, UNSPECIFIED Status: Chronic Priority: High Current Visit: No Qualifiers: Heart failure type: combined systolic and diastolic Heart failure chronicity: acute on chronic Qualified Code(s): I50.43 - Acute on chronic combined systolic (congestive) and diastolic (congestive) heart failure (4) CKD (chronic kidney disease) stage 3, GFR 30-59 ml/min SNOMED Code(s): 518091882 ICD Code: N18.3 - CHRONIC KIDNEY DISEASE, STAGE 3 (MODERATE) * DO NOT USE * Status: Chronic Priority: High Current Visit: No Qualifiers: Chronic kidney disease stage 3 subtype: stage 3b (GFR 30-44) Qualified Code(s): N18.32 - Chronic kidney disease, stage 3b (5) Diabetes mellitus type II, controlled SNOMED Code(s): 63941042, 804857394 ICD Code: E11.9 - TYPE 2 DIABETES MELLITUS WITHOUT COMPLICATIONS Status: Chronic Current Visit: No Problem Details: Sugars reasonably well controlled on home regimen. This will be continued at discharge. Qualifiers: Diabetes mellitus group home insulin use: without group home use Diabetes mellitus complication status: with unspecified complications Qualified Code(s): E11.8 - Type 2 diabetes mellitus with unspecified complications - Patient Summary/Data Consults: Consultations 05/24/20 08:40 Consult to Speech Language Pathology [ADVERTISING REPRESENTATIVE Evaluation and Treatment] [CONS] Routine Please Evaluate and Treat ADVERTISING REPRESENTATIVE Reason for Consult: Swallow This query below is only for informational purposes and is not editable. Admission Diagnosis/Problem: Cerebral hemorrhage PT Evaluation and Treatment [CONS] Routine Please Evaluate and Treat. PT Reason for Consult: Strengthening Discharge Disposition: [facility] This query below is only for informational purposes and is not editable. Admission Diagnosis/Problem: Cerebral hemorrhage 05/24/20 08:41 OT Evaluation and Treatment [CONS] Routine Please Evaluate and Treat. OT Reason for Consult: Strengthening This query below is only for informational purposes and is not editable. Admission Diagnosis/Problem: Cerebral hemorrhage - Patient Instructions Diet: Heart Healthy Diet Activity: As Tolerated Notify Provider of: Fever, Increased Pain, Nausea and/or Vomiting - Discharge Plan *PRESCRIPTION DRUG MONITORING PROGRAM REVIEWED*: Not Applicable *COPY OF PRESCRIPTION DRUG MONITORING REPORT IN PATIENT [place]: Not Applicable Home Medications: Home Meds metFORMIN [Glucophage] 1,000 mg PO BIDM 10/06/13 [History] Allopurinol [Zyloprim] 100 mg PO DAILY 10/15/15 [History] Lisinopril 40 mg PO DAILY 08/08/17 [History] atorvaSTATin [Lipitor] 40 mg PO DAILY 08/08/17 [History] Gabapentin [Neurontin] 300 mg PO TID 10/09/19 [History] Isosorbide Mononitrate [Isosorbide Mononitrate ER] 30 mg PO DAILY 10/09/19 [History] Metoprolol Succinate 200 mg PO DAILY 10/09/19 [History] Magnesium 250 mg PO DAILY 10/21/19 [History] Acetaminophen/Caffeine [Excedrin Tension Headache] 1 tab PO ASDIRECTED PRN 10/23/19 [History] Cholecalciferol (Vitamin D3) [Vitamin D3] 2,000 unit PO DAILY 04/18/20 [History] Digoxin [Digox] 125 mcg PO DAILY 04/18/20 [History] Omeprazole 20 mg PO DAILY 04/18/20 [History] Forms: ED Department Discharge Referrals: María Fried PA [Primary Care Provider] - - Discharge Summary/Plan Comment DC Time >30 min.: Yes (32 minutes) Discharge Summary/Plan Comment: 84-year-old female admitted on 05/23 with presumptive acute right frontal small cerebral hemorrhage on top of age-indeterminate infarct. Patient was initially somewhat lethargic and less interactive though did become more alert and oriente d to person and time. She was able to participate in some speech, physical, and occupational therapy. A meeting was held with the patient, her son, and her daughter. She has been requiring care beyond which the son could provide even prior to this episode. She was eventually discharged to subacute rehab at assisted facility. Subsequently, the patient will likely transition to long-term care with consideration for palliative measures if she decompensates. She is a DNR/DNI. The patient had some intermittent nausea limiting oral intake. She is otherwise able to advance diet per speech therapy. She should continue speech therapy at the assisted facility. At discharge, a prescription was written for Zofran to take if needed for nausea. - Patient Data Vitals - Most Recent: Last Vital Signs Temp 97.2 F 05/25/20 07:00 Pulse 65 05/25/20 09:54 Resp 18 05/25/20 07:00 BP 182/73 H 05/25/20 10:02 Pulse Ox 98 05/25/20 07:00 Weight - Most Recent: 121 lb I&O - Last 24 hours: Intake & Output 05/24/20 05/25/20 05/25/20 22:59 06:59 14:59 Intake Total 1997 1387 Balance 1997 1387 Lab Results - Last 24 hrs: Laboratory Results - last 24 hr 05/24/20 05/25/20 05/25/20 Range/Units 18:20 04:15 08:00 Creatinine 0.7 D (0.6-1.0) mg/dL Est Cr Clr Drug Dosing 47.32 mL/min Estimated GFR (MDRD) > 60 (>60) POC Glucose 162 H 119 H (74-106) MG/DL Med Orders - Current: Current Medications Atorvastatin Calcium (Lipitor) 40 mg PO DAILY [facility] Last Admin: 05/25/20 10:07 Dose: 40 mg Documented by: Digoxin (Lanoxin) 125 mcg PO DAILY@1300 [facility] Last Admin: 05/24/20 14:17 Dose: Not Given Documented by: Furosemide (Lasix) 40 mg PO DAILY [facility] Last Admin: 05/25/20 09:29 Dose: 40 mg Documented by: Gabapentin (Neurontin) 300 mg PO TID [facility] Last Admin: 05/25/20 09:29 Dose: 300 mg Documented by: Sodium Chloride (Normal Saline) 1,000 mls @ 125 mls/hr IV ASDIRECTED [facility] Last Admin: 05/25/20 10:27 Dose: 125 mls/hr Documented by: Isosorbide Mononitrate (Imdur) 30 mg PO DAILY [facility] Last Admin: 05/25/20 10:02 Dose: 30 mg Documented by: Lisinopril (Prinivil) 40 mg PO DAILY [facility] Last Admin: 05/25/20 09:29 Dose: 40 mg Documented by: Magnesium Oxide (Magnesium Oxide) 400 mg PO DAILY [facility] Last Admin: 05/25/20 10:01 Dose: 400 mg Documented by: Metoprolol Succinate (Toprol Xl) 200 mg PO DAILY [facility] Last Admin: 05/25/20 09:54 Dose: 200 mg Documented by: Ondansetron HCl (Ondansetron 4 Mg/2 Ml Sdv) 4 mg IV Q4H PRN PRN Reason: Nausea/Vomiting Last Admin: 05/24/20 12:13 Dose: 4 mg Documented by: Pantoprazole Sodium (Protonix) 40 mg PO ACBREAKFAST [facility] Last Admin: 05/25/20 07:43 Dose: 40 mg Documented by: Potassium Chloride (Klor-Con M20) 20 meq PO DAILY [facility] Last Admin: 05/25/20 10:10 Dose: 20 meq Documented by: Discontinued Medications Magnesium Oxide (Magnesium Oxide) 200 mg PO DAILY [facility] Ondansetron HCl (Zofran) 4 mg IVPUSH ONETIME ONE Stop: 05/23/20 00:22 Last Admin: 05/23/20 00:27 Dose: 4 mg Documented by:
[2020-05-25 11:29] VITALS: BP 131/55; PULSE 41
== END 2020-05-25 13:15 | DRG 64 ==
LOC: JP.ED 23:30 → JP.MS 05-23 01:33
PROVIDERS: ADMIT Family Medicine; ATTEND Family Medicine
DX: I61.9 Nontraumatic intracerebral hemorrhage, unspecified (principal); R41.89 Other symptoms and signs involving cognitive functions and awareness; H54.7 Unspecified visual loss; H40.9 Unspecified glaucoma; I48.91 Unspecified atrial fibrillation; E78.00 Pure hypercholesterolemia, unspecified; I50.43 Acute on chronic combined systolic (congestive) and diastolic (congestive) heart failure; I08.1 Rheumatic disorders of both mitral and tricuspid valves; I48.11 Longstanding persistent atrial fibrillation; I13.0 Hypertensive heart and chronic kidney disease with heart failure and stage 1 through stage 4 chronic kidney disease, or unspecified chronic kidney disease; I50.9 Heart failure, unspecified; N18.9 Chronic kidney disease, unspecified; Z66 Do not resuscitate; Z86.73 Personal history of transient ischemic attack (TIA), and cerebral infarction without residual deficits; N18.32 Chronic kidney disease, stage 3b; E11.22 Type 2 diabetes mellitus with diabetic chronic kidney disease; E78.5 Hyperlipidemia, unspecified; J44.9 Chronic obstructive pulmonary disease, unspecified; K21.9 Gastro-esophageal reflux disease without esophagitis; M19.90 Unspecified osteoarthritis, unspecified site; G43.909 Migraine, unspecified, not intractable, without status migrainosus; Z79.82 Long term (current) use of aspirin; F03.90 Unspecified dementia, unspecified severity, without behavioral disturbance, psychotic disturbance, mood disturbance, and anxiety; Z79.01 Long term (current) use of anticoagulants; Z79.84 Long term (current) use of oral hypoglycemic drugs; Z79.899 Other long term (current) drug therapy; I25.2 Old myocardial infarction; Z88.0 Allergy status to penicillin; Z88.1 Allergy status to other antibiotic agents; Z88.2 Allergy status to sulfonamides; Z88.5 Allergy status to narcotic agent; Z88.8 Allergy status to other drugs, medicaments and biological substances; Z90.710 Acquired absence of both cervix and uterus
CPT/HCPCS: 36415; 70450; 80053; 81001; 83605; 84484; 85025; J2405; 82565; 82962; 92610-GN; 96374; 97162-GP; 97165-GO; 97530-GP; 99285; 99285-25; A9270-GY; J7030

== ENCOUNTER 2020-06-25 17:53 | Emergency (ER) | payer MEDICARE ==
[2020-06-25 18:03] VITALS: BP 192/77; PULSE 60
--- NOTE | 2020-06-25 20:12 | EDM.PDOC ---
ED HPI GENERAL MEDICAL PROBLEM - General Chief Complaint: Lower Extremity Injury/Pain Stated Complaint: MEDICAL VIA [facility] Time Seen by Provider: 06/25/20 18:17 Source of Information: Reports: Patient, EMS History Limitations: Reports: No Limitations - History of Present Illness INITIAL COMMENTS - FREE TEXT/NARRATIVE: Giana is an 84-year-old female presenting to the ED via [facility] ambulance from [facility] for evaluation of right hip pain after a fall. Patient was in her usual state of health but was changed to a new room today. She was in the closet changing out of her pajamas and to close 1 so he knocked on her door. Apparently the closet is on the other side of the door and she told the person to wait but they open the door hitting her with it knocking her down. She states that she grabbed the door which aided her on the way down to the ground. She initially was complaining of some right hip pain but was ambulating at the [facility] after the fall. She was using a table that had wheels on it to ambulate up and down the halls. They did send her in because she was complaining of increasing pain. The patient does have a history of a recent stroke in June and has memory difficulty since this event. She is currently at [facility] for physical therapy which has yet to initiate. She denies any other injuries related to the fall. - Related Data Allergies Allergy/AdvReac Type Severity Reaction Status Date / Time Penicillins Allergy Intermediate Respiratory Verified 06/25/20 18:03 Distress erythromycin base Allergy Rash Verified 06/25/20 18:03 Sulfa (Sulfonamide Allergy Rash Verified 06/25/20 18:03 Antibiotics) azithromycin AdvReac Vomiting Verified 06/25/20 18:03 codeine AdvReac Nausea and Verified 06/25/20 18:03 Vomiting diazepam [From Valium] AdvReac Disorientat Verified 06/25/20 18:03 ion oxybutynin AdvReac Nausea Verified 06/25/20 18:03 Home Meds: Home Meds metFORMIN [Glucophage] 1,000 mg PO BIDM 10/06/13 [History] allopurinoL [Zyloprim] 100 mg PO DAILY 10/15/15 [History] Lisinopril 40 mg PO DAILY 08/08/17 [History] atorvaSTATin [Lipitor] 40 mg PO DAILY 08/08/17 [History] Gabapentin [Neurontin] 300 mg PO TID 10/09/19 [History] Cholecalciferol (Vitamin D3) [Vitamin D3] 2,000 unit PO DAILY 04/18/20 [History] Digoxin [Digox] 125 mcg PO DAILY 04/18/20 [History] Omeprazole 20 mg PO DAILY 04/18/20 [History] Ondansetron [Zofran ODT] 4 mg PO Q6H PRN #12 tab.dis 05/25/20 [Rx] Cholecalciferol (Vitamin D3) [Vitamin D3] 2,000 unit PO DAILY 06/25/20 [History] Metoprolol Succinate [Toprol Xl] 50 mg PO DAILY 06/25/20 [History] Spironolactone [Aldactone] 12.5 mg PO DAILY 06/25/20 [History] hydrALAZINE HCl [Hydralazine HCl] 25 mg PO BID 06/25/20 [History] hydrALAZINE HCl [Hydralazine HCl] 50 mg PO DAILY 06/25/20 [History] Past Medical History HEENT History: Reports: Cataract, Glaucoma, Impaired Vision Cardiovascular History: Reports: Afib, Heart Failure, High Cholesterol, Hypertension, [place], Other (See Below) Other Cardiovascular History: Mitral and tricuspid regurgitation Respiratory History: Reports: Asthma, COPD Gastrointestinal History: Reports: GERD Genitourinary History: Reports: Chronic Renal Insuffiency, Renal Disease STEREOPTICIAN History: Reports: Musculoskeletal History: Reports: Osteoarthritis, Other (See Below) Other Musculoskeletal History: right hip pain Neurological History: Reports: CVA, Migraines Psychiatric History: Reports: None Endocrine/Metabolic History: Reports: Diabetes, Type II Hematologic History: Reports: Anticoagulation Therapy, B12 Deficiency Oncologic (Cancer) History: Reports: None Dermatologic History: Reports: None - Infectious Disease History Infectious Disease History: Reports: Chicken Pox, Measles, Mumps - Past Surgical History Head Surgeries/Procedures: Reports: None HEENT Surgical History: Reports: Cataract Surgery Cardiovascular Surgical History: Reports: Other (See Below) Other Cardiovascular Surgeries/Procedures: HEART CATHETER Respiratory Surgical History: Reports: None GI Surgical History: Reports: Appendectomy Female Surgical History: Reports: Endometrial Ablation, Hysterectomy Endocrine Surgical History: Reports: None Neurological Surgical History: Reports: None Musculoskeletal Surgical History: Reports: None Dermatological Surgical History: Reports: None Social & Family History - Family History Family Medical History: No Pertinent Family History - Tobacco Use Tobacco Use Status *Q: Never Tobacco User - Caffeine Use Caffeine Use: Reports: Coffee Other Caffeine Use: unknown Review of Systems - Review of Systems Review Of Systems: See Below Constitutional: Reports: No Symptoms Eyes: Reports: No Symptoms Ears: Reports: No Symptoms Nose: Reports: No Symptoms Mouth/Throat: Reports: No Symptoms Respiratory: Reports: No Symptoms Cardiovascular: Reports: No Symptoms GI/Abdominal: Reports: No Symptoms Genitourinary: Reports: No Symptoms Musculoskeletal: Reports: Joint Pain (Right hip pain) Skin: Reports: No Symptoms Neurological: Reports: No Symptoms Psychiatric: Reports: No Symptoms ED EXAM, GENERAL - Physical Exam Exam: See Below Exam Limited By: No Limitations General Appearance: Alert, No Apparent Distress, Anxious Eye Exam: Bilateral Eye: EOMI, PERRL Throat/Mouth: Normal Inspection, Normal Lips, Normal Teeth, Normal Oropharynx, Normal Voice, No Airway Compromise Head: Atraumatic, Normocephalic Neck: Normal Inspection, Supple, Non-Tender, Full Range of Motion Respiratory/Chest: No Respiratory Distress, Lungs Clear, Normal Breath Sounds Cardiovascular: Normal Peripheral Pulses, Regular Rate, Rhythm, No Edema, No Murmur Peripheral Pulses: 2+: Radial (L), Radial (R), Posterior Tibial (L), Posterior Tibial (R) GI/Abdominal: Normal Bowel Sounds, Soft, Non-Tender Back Exam: Normal Inspection, Full Range of Motion Extremities: Normal Inspection, Normal Range of Motion, Non-Tender, Other (Mild right hip pain with flexion and extension. The pain is nonlocalized.). No: Joint Swelling Neurological: Alert, Oriented, No Motor/Sensory Deficits Psychiatric: Normal Affect, Normal Mood Lymphatic: No Adenopathy Course - Vital Signs Last Recorded V/S: Last Vital Signs Temp 36.3 C 06/25/20 17:57 Pulse 60 06/25/20 17:57 Resp 16 06/25/20 17:57 BP 192/77 H 06/25/20 17:57 Pulse Ox 99 06/25/20 17:57 - Orders/Labs/Meds Orders: Active Orders 24 hr Category Date Time Status Hip Min 2V or 3V w Pelvis Rt [CR] Stat Exams 06/25/20 18:18 Taken - Re-Assessments/Exams Free Text/Narrative Re-Assessment/Exam: 06/25/20 20:13 rays of the right hip and pelvis are negative for any acute osseous abnormalities. 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 The patient was gotten up by the technology adoption manager and ambulated without difficulty with the use of a walker. She has complained of some mild right hip pain. At this time, I think that she likely sustained a contusion to the right hip. I believe that she is suitable for discharge back to [facility]. Her son will take her back to the [facility]. Departure - Departure Time of Disposition: 20:08 Disposition: DC/Tfer to SNF 03 Clinical Impression: Acute right hip pain Fall from standing Qualifiers: Encounter type: initial encounter Qualified Code(s): W19.XXXA - Unspecified fall, initial encounter - Discharge Information Instructions: Hip Pain Referrals: PCP,None [Primary Care Provider] - Care Plan Goals: You likely sustained a bruise to the right hip. There were no fracture seen on your x-rays of the hip and pelvis. Ambulate with caution. You may take Tylenol for pain control. Follow-up with your primary care provider regarding your blood pressure if remains elevated. Sepsis Event Note (ED) - Evaluation Sepsis Screening Result: No Definite Risk - Focused Exam Vital Signs: Vital Signs Temp Pulse Resp BP Pulse Ox 06/25/20 17:57 36.3 C 60 16 192/77 H 99 - Problem List & Annotations (1) Acute right hip pain SNOMED Code(s): 81336709, 895832801 Code(s): M25.551 - PAIN IN RIGHT HIP Status: Acute Priority: Medium Current Visit: Yes (2) Fall from standing SNOMED Code(s): 9106567 Code(s): W19.XXXA - UNSPECIFIED FALL, INITIAL ENCOUNTER Status: Acute Priority: Medium Current Visit: Yes Qualifiers: Encounter type: initial encounter Qualified Code(s): W19.XXXA - Unspecified fall, initial encounter - Problem List Review Problem List Initiated/Reviewed/Updated: Yes - My Orders Last 24 Hours: My Active Orders 06/25/20 18:18 Hip Min 2V or 3V w Pelvis Rt [CR] Stat - Assessment/Plan Last 24 Hours: My Active Orders 06/25/20 18:18 Hip Min 2V or 3V w Pelvis Rt [CR] Stat
--- NOTE | 2020-06-27 09:56 | CR ---
Hip Min 2V or 3V w Pelvis Rt CLINICAL HISTORY: Fall, pain FINDINGS: No fracture or dislocation is identified. Hip joint spaces are fairly well-maintained. There are some degenerative changes in lumbar spine IMPRESSION: No fracture or dislocation
== END 2020-06-25 20:36 ==
LOC: JP.ED 17:53
DX: M25.551 Pain in right hip (principal); I48.91 Unspecified atrial fibrillation; I13.0 Hypertensive heart and chronic kidney disease with heart failure and stage 1 through stage 4 chronic kidney disease, or unspecified chronic kidney disease; I50.9 Heart failure, unspecified; J44.9 Chronic obstructive pulmonary disease, unspecified; E11.22 Type 2 diabetes mellitus with diabetic chronic kidney disease; E78.00 Pure hypercholesterolemia, unspecified; I25.2 Old myocardial infarction; N18.9 Chronic kidney disease, unspecified; M19.90 Unspecified osteoarthritis, unspecified site; Z88.5 Allergy status to narcotic agent; Z88.8 Allergy status to other drugs, medicaments and biological substances; Z88.0 Allergy status to penicillin; Z88.1 Allergy status to other antibiotic agents; Z88.2 Allergy status to sulfonamides; Z86.73 Personal history of transient ischemic attack (TIA), and cerebral infarction without residual deficits; W18.30XA Fall on same level, unspecified, initial encounter
CPT/HCPCS: 73502-26-RT; 73502-RT; 99284-25